=== PATIENT | female | born 1965 | race Hispanic/Latino ===

== ENCOUNTER 2018-06-27 16:28 | Emergency (ER) | payer BC, SELFPAY ==
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
--- OUTSIDE RECORDS SUMMARY | 2018-06-27 16:32 | XMS REPORT | Summary of Care ---
:1965 Author Organization [facility] Address [address], [place] [address]- Encounter HQ Encntr_alias(FIN) [id number] Date(s): 12/25/15 - 12/26/15 [facility] [address] [place] [address] Professional Services provided by [facility] [place] [address]- Discharge Disposition: Home or Self Care Attending Physician: Demetrius Faulkner MD Admitting Physician: Gonzalo sIaac MD Referring Physician: Gonzalo Isaac MD Vital Signs Most recent to oldest 1 2 3 [Reference Range]: Height 165.1 cm 157.48 cm (12/25/15 5:00 AM) (12/25/15 12:13 AM) Temperature Oral [96.4-99.1 97.1 DegF 97.5 DegF 97.3 DegF DegF] (12/26/15 3:39 PM) (12/26/15 11:37 AM) (12/26/15 7:35 AM) Blood Pressure [90-140/60-90 112/70 mmHg 104/69 mmHg 117/67 mmHg mmHg] (12/26/15 3:39 PM) (12/26/15 11:37 AM) (12/26/15 7:35 AM) Respiratory Rate [14-20 BRMIN] 18 BRMIN 18 BRMIN 18 BRMIN (12/26/15 3:39 PM) (12/26/15 11:37 AM) (12/26/15 7:35 AM) Peripheral Pulse Rate [60-100 65 bpm 61 bpm 59 bpm bpm] (12/26/15 3:39 PM) (12/26/15 11:37 AM) *LOW* (12/26/15 7:35 AM) Weight 86.1 kg 90.909 kg (12/25/15 5:00 AM) (12/25/15 12:13 AM) Body Mass Index 31.59 m2 36.66 m2 (12/25/15 5:00 AM) (12/25/15 12:13 AM) Problem List Condition Effective Dates Status Health Status Informant Anxiety(Confirmed) Resolved HTN (hypertension)(Confirmed) Resolved Allergies, Adverse Reactions, Alerts Substance Reaction Severity Status NKDA Active Medications acetaminophen-hydrocodone 325 mg-10 mg oral tablet 2 tab, Route: PO, Drug Form: TAB, Dosing Weight 90.909, kg, Q4H, PRN Pain Score 7-10, Start date: 12/25/15 2:57:00 CDT, Duration: 30 day, Stop date: 01/24/16 2: 56:00 CDT Notes: Do not exceed 4gm/day of acetaminophen. (Same as: [place] 325/10) Start Date: 12/25/15 Stop Date: 12/26/15 Status: DiscontinuedBenadryl 25 mg, 0.5 mL, Route: IVP, Drug form: INJ, ONCE, Dosing Weight 90.909, kg, Priority: STAT, Start date: 12/25/15 2:37:00 CDT, Stop date: 12/25/15 2:37:00 CDT Notes: (Same as: Addy) Start Date: 12/25/15 Stop Date: 12/25/15 Status: Orderedcalcium carbonate 500 mg (200 mg elemental calcium) oral tablet 1,000 mg, 2 tab, Route: PO, Drug form: CHEWTAB, PRN, Dosing Weight 90.909, kg, PRN Abnormal Lab Result, FOR ICU USE ONLY, Start date: 12/25/15 5:21:00 CDT, Duration: 30 day, Stop date: 01/24/16 5:20:00CDT Notes: (Same As: Violeta)Calcium Carbonate 500 nb=139 mg elemental calcium Dose=_ mg calcium carbonate ( mg elemental calcium) Start Date: 12/25/15 Stop Date: 12/26/15 Status: Discontinuedcalcium carbonate 500 mg (200 mg elemental calcium) oral tablet 500 mg, 1 tab, Route: PO, Drug form: CHEWTAB, PRN, Dosing Weight 90.909, kg, PRN Abnormal Lab Result, FOR ICU USE ONLY, Start date: 12/25/15 5:21:00 CDT, Duration: 30 day, Stop date: 01/24/16 5:20:00 CDT Notes: (Same As: Tums)Calcium Carbonate 500 pf=347 mg elemental calcium Dose=_ mg calcium carbonate ( mg elemental calcium) Start Date: 12/25/15 Stop Date: 12/26/15 Status: Discontinuedcalcium gluconate + sodium chloride 0.9% INJ 50 mL 1 gm, 10 mL, Route: IVPB, PRN, Dosing Weight 90.909, kg, PRN Abnormal Lab Result , Start date: 12/25/15 5:21:00 CDT, Duration: 30 day, Stop date: 01/24/16 5:20: 00 CDT, FOR ICU USE ONLY Notes: WASTE: F/P - Sink; E - Municipal Trash Bin Start Date: 12/25/15 Stop Date: 12/26/15 Status: Discontinuedcitalopram 20 mg oral tablet 20 mg=1 tab, PO, Daily, # 30 tab, 0 Refill(s) Start Date: 12/25/15 Status: OrderedCompazine 10 mg, 2 mL, Route: IV, Drug form: INJ, ONCE, Dosing Weight 90.909, kg, Start date: 12/25/15 2:36:00CDT, Stop date: 12/25/15 2:36:00 CDT Notes: (Same as: Compazine)By slow I.V. injection or infusion at a rate not to exceed 5 mg per minute. DO NOT BOLUSIf IV infusion Attach the vial to NS 50ml mini-bag plus, activate and reconstitute before infusion and infuse over 30 minutes Start Date: 12/25/15 Stop Date: 12/25/15 Status: DiscontinuedDextrose 50% Syringe 12.5 gm, 25 mL, Route: IVP, Drug Form: INJ, Dosing Weight 90.909, kg, PRN, PRN Abnormal Lab Result, Start date: 12/25/15 2:57:00 CDT, Duration: 30 day, Stop date: 01/24/16 2:56:00 CDT Start Date: 12/25/15 Stop Date: 12/26/15 Status: DiscontinuedDextrose 50% Syringe 6.25 gm, 12.5 mL, Route: IVP, Drug Form: INJ, Dosing Weight 90.909, kg, PRN, PRN Abnormal Lab Result, Start date: 12/25/15 2:57:00 CDT, Duration: 30 day, Stop date: 01/24/16 2:56:00 CDT Start Date: 12/25/15 Stop Date: 12/26/15 Status: DiscontinuedDextrose 50% Syringe 25 gm, 50 mL, Route: IVP, Drug Form: INJ, Dosing Weight 90.909, kg, PRN, PRN Abnormal Lab Result, Start date: 12/25/15 2:57:00 CDT, Duration: 30 day, Stop date: 01/24/16 2:56:00 CDT Start Date: 12/25/15 Stop Date: 12/26/15 Status: Discontinueddocusate 100 mg, 1 cap, Route: PO, Drug form: CAP, Q12H, Dosing Weight 90.909, kg, Start date: 12/25/15 9:00:00 CDT, Duration: 30 day, Stop date: 01/23/16 21:00:00 CDT Notes: (Same as: Colace) (Do Not Crush) Start Date: 12/25/15 Stop Date: 12/26/15 Status: Discontinuedinsulin regular 100 units/mL human recombinant 3 unit, 0.03 mL, Route: SUB-Q, Drug form: SOLN, PRN, Dosing Weight 90.909, kg, PRN Abnormal Lab Result, Start date: 12/25/15 2:57:00 CDT, Duration: 30 day, Stop date: 01/24/16 2:56:00 CDT Notes: (Same as: Humulin R) Roll in palms of hands gently; Do not shake vigorously. "single patientuse only"(Restricted to patients requiring a dose > 60 units)WASTE: F/P - Black; E - Municipal Trash Bin Stable for 28 days at room temperatureExpires in days from Date Start Date: 12/25/15 Stop Date: 12/26/15 Status: Discontinuedinsulin regular 100 units/mL human recombinant 5 unit, 0.05 mL, Route: SUB-Q, Drug form: SOLN, PRN, Dosing Weight 90.909, kg, PRN Abnormal Lab Result, Start date: 12/25/15 2:57:00 CDT, Duration: 30 day, Stop date: 01/24/16 2:56:00 CDT Notes: (Same as: Humulin R) Roll in palms of hands gently; Do not shake vigorously. "single patientuse only"(Restricted to patients requiring a dose > 60 units)WASTE: F/P - Black; E - Municipal Trash Bin Stable for 28 days at room temperatureExpires in days from Date Start Date: 12/25/15 Stop Date: 12/26/15 Status: Discontinuedinsulin regular 100 units/mL human recombinant 7 unit, 0.07 mL, Route: SUB-Q, Drug form: SOLN, PRN, Dosing Weight 90.909, kg, PRN Abnormal Lab Result, Start date: 12/25/15 2:57:00 CDT, Duration: 30 day, Stop date: 01/24/16 2:56:00 CDT Notes: (Same as: Humulin R) Roll in palms of hands gently; Do not shake vigorously. "single patientuse only"(Restricted to patients requiring a dose > 60 units)WASTE: F/P - Black; E - Municipal Trash Bin Stable for 28 days at room temperatureExpires in days from Date Start Date: 12/25/15 Stop Date: 12/26/15 Status: DiscontinuedKeppra 1,000 mg, Route: IV, ONCE, Dosing Weight 90.909, kg, Start date: 12/25/15 1:55: 00 CDT, Stop date: 12/25/15 1:55:00 CDT Start Date: 12/25/15 Stop Date: 12/25/15 Status: CompletedKeppra 1,000 mL, Route: IV, ONCE, Dosing Weight 90.909, kg, Start date: 12/25/15 0:27: 00 CDT, Stop date: 12/25/15 0:27:00 CDT Start Date: 12/25/15 Stop Date: 12/25/15 Status: DiscontinuedlevETIRAcetam 500 mg, 1 tab, Route: PO, Drug form: TAB, Q12H, Dosing Weight 90.909, kg, Start date: 12/25/15 14:00:00 CDT, Duration: 30 day, Stop date: 01/24/16 2:00:00 CDT Notes: (Same as:Jeanie) Start Date: 12/25/15 Stop Date: 12/26/15 Status: DiscontinuedlevETIRAcetam 500 mg oral tablet 500 mg=1 tab, PO, Q12H, 0 Refill(s) Start Date: 12/26/15 Stop Date: 12/26/15 Status: DeletedlevETIRAcetam 500 mg oral tablet 500 mg=1 tab, PO, Q12H, # 14 tab, 0 Refill(s) Start Date: 12/26/15 Status: Orderedlisinopril 20 mg oral tablet See Instructions, One tab twice daily, 0 Refill(s) Start Date: 12/25/15 Status: Orderedmagnesium oxide 800 mg, 2 tab, Route: PO, Drug form: TAB, PRN, Dosing Weight 90.909, kg, PRN Abnormal Lab Result, FOR ICU USE ONLY, Start date: 12/25/15 5:21:00 CDT, Duration: 30 day, Stop date: 01/24/16 5:20:00 CDT Notes: (Same as: Mag-Ox 400)Magnesium oxide [id number] elemental magnesiumDose= ____mg magnesium oxide (___mg elemental magnesium) Start Date: 12/25/15 Stop Date: 12/26/15 Status: Discontinuedmagnesium sulfate 2 gm, 50 mL, Route: IVPB, Drug form: INJ, PRN, Dosing Weight 90.909, kg, PRN Abnormal Lab Result, Start date: 12/25/15 5:21:00 CDT, Duration: 30 day, Stop date: 01/24/16 5:20:00 CDT, FOR ICU USE ONLY Notes: WASTE: F/P - Sink; E - Municipal Trash Bin Start Date: 12/25/15 Stop Date: 12/26/15 Status: Discontinuedmorphine Sulfate 1 mg, 0.5 mL, Route: IVP, Drug form: INJ, Q1H, Dosing Weight 90.909, kg, PRN Pain Score 7-10, Start date: 12/25/15 2:57:00 CDT, Duration: 30 day, Stop date: 01/24/16 2:56:00 CDT Notes: (Same as:MORPhine Sulfate) Start Date: 12/25/15 Stop Date: 12/26/15 Status: DiscontinuedNeutra-Phos 2 pkt, Route: PO, Drug Form: PDR/REC, Dosing Weight 90.909, kg, PRN, PRN Abnormal Lab Result, FOR ICU USE ONLY, Start date: 12/25/15 5:21:00 CDT, Duration: 30 day, Stop date: 01/24/16 5:20:00 CDT Notes: (Same as: Neutra-Phos) Each 1.25 gm pkt has 250mg phosphorous. Mix w/ 2.5oz water and stir. Start Date: 12/25/15 Stop Date: 12/26/15 Status: Discontinuedondansetron 4 mg, 2 mL, Route: IVP, Drug form: INJ, Q8H, Dosing Weight 90.909, kg, PRN Nausea & Vomiting, Start date: 12/25/15 2:57:00 CDT, Duration: 30 day, Stop date: 01/24/16 2:56:00 CDT Notes: (Same as: Zofran) MEDICATION WASTE Product Size: 4 mgProduct Wasted: ___ mg Start Date: 12/25/15 Stop Date: 12/26/15 Status: Discontinuedpotassium chloride 20 mEq, 15 mL, Route: NJ, Drug form: LIQ, PRN, Dosing Weight 90.909, kg, PRN Abnormal Lab Result, Start date: 12/25/15 5:21:00 CDT, Duration: 30 day, Stop date: 01/24/16 5:20:00 CDT, FOR ICU USE ONLY Notes: (Same as: Potassium Chloride) Start Date: 12/25/15 Stop Date: 12/26/15 Status: Discontinuedpotassium chloride 20 mEq, 1 tab, Route: PO, Drug form: ERTAB, PRN, Dosing Weight 90.909, kg, PRN Abnormal Lab Result, Start date: 12/25/15 5:21:00 CDT, Duration: 30 day, Stop date: 01/24/16 5:20:00 CDT, FOR ICU USE ONLY Notes: (Same as: K-Dur 20)"Do Not Crush" With food and full glass of water Start Date: 12/25/15 Stop Date: 12/26/15 Status: Discontinuedpotassium chloride 10 mEq, 50 mL, Route: IVPB, Drug form: INJ, PRN, Dosing Weight 90.909, kg, PRN Abnormal Lab Result, Via peripheral line, Start date: 12/25/15 5:21:00 CDT, Duration: 30 day, Stop date: 01/24/16 5:20:00 CDT, FOR ICU USE ONLY Notes: (Same as: KCL) Infuse over 2 hours. Start Date: 12/25/15 Stop Date: 12/26/15 Status: Discontinuedpotassium chloride 20 mEq, 100 mL, Route: IVPB, Drug form: INJ, PRN, Dosing Weight 90.909, kg, PRN Abnormal Lab Result,Via central line, Start date: 12/25/15 5:21:00 CDT, Duration : 30 day, Stop date: 01/24/16 5:20:00 CDT, FOR ICU USE ONLY Notes: (Same as: KCL) Infuse no faster than 10 mEq/hr if given peripherally. Start Date: 12/25/15 Stop Date: 12/26/15 Status: Discontinuedpotassium phosphate + sodium chloride 0.9% INJ 250 mL 15 mmol, 5 mL, Route: IVPB, PRN, Dosing Weight 90.909, kg, PRN Abnormal Lab Result, Start date: 12/25/15 5:21:00 CDT, Duration: 30 day, Stop date: 01/24/16 5:20:00 CDT, FOR ICU USE ONLY Notes: (Same as: K Phosphate.) 1 mMol phoshate has 1.47 mEq potassium Infuse over 4 hours Start Date: 12/25/15 Stop Date: 12/26/15 Status: Discontinuedpotassium phosphate + sodium chloride 0.9% INJ 250 mL 45 mmol, 15 mL, Route: IVPB, PRN, Dosing Weight 90.909, kg, PRN Abnormal Lab Result, Start date: 12/25/15 5:21:00 CDT, Duration: 30 day, Stop date: 01/24/16 5:20:00 CDT, FOR ICU USE ONLY Notes: (Same as: K Phosphate.) 1 mMol phoshate has 1.47 mEq potassium Infuse over 4 hours Start Date: 12/25/15 Stop Date: 12/26/15 Status: Discontinuedpotassium phosphate + sodium chloride 0.9% INJ 250 mL 30 mmol, 10 mL, Route: IVPB, PRN, Dosing Weight 90.909, kg, PRN Abnormal Lab Result, Start date: 12/25/15 5:21:00 CDT, Duration: 30 day, Stop date: 01/24/16 5:20:00 CDT, FOR ICU USE ONLY Notes: (Same as: K Phosphate.) 1 mMol phoshate has 1.47 mEq potassium Infuse over 4 hours Start Date: 12/25/15 Stop Date: 12/26/15 Status: DiscontinuedSaline Flush 0.9% 10 ml, Route: MISC, Drug Form: INJ, Dosing Weight 90.909, kg, PRN, PRN Line Flush, Start date: 12/25/15 2:57:00 CDT, Duration: 30 day, Stop date: 01/24/16 2 :56:00 CDT Notes: (Same as: BD Posiflush) Start Date: 12/25/15 Stop Date: 12/26/15 Status: DiscontinuedSaline Flush 0.9% 10 ml, Route: MISC, Drug Form: INJ, Dosing Weight 90.909, kg, Q12H, Start date: 12/25/15 9:00:00 CDT, Duration: 30 day, Stop date: 01/23/16 21:00:00 CDT Notes: (Same as: BD Posiflush) Start Date: 12/25/15 Stop Date: 12/26/15 Status: Discontinuedsenna 8.6 mg, 1 tab, Route: PO, Drug Form: TAB, Dosing Weight 90.909, kg, Q12H, Start date: 12/25/15 9:00:00 CDT, Duration: 30 day, Stop date: 01/23/16 21:00:00 CDT Notes: (Same as: Senokot) Start Date: 12/25/15 Stop Date: 12/26/15 Status: Discontinuedsodium chloride 0.9% 1000 ml INJ 1,000 mL 1,000 mL, Rate: 100 ml/hr, Infuse over: 10 hr, Route: IVPB, Dosing Weight 90.909 kg, Total Volume: 1,000, Start date: 12/25/15 2:57:00 CDT, Duration: 30 day, Stop date: 01/24/16 2:56:00 CDT Start Date: 12/25/15 Stop Date: 12/26/15 Status: Discontinuedsodium phosphate + sodium chloride 0.9% INJ 250 mL 30 mmol, 10 mL, Route: IVPB, PRN, Dosing Weight 90.909, kg, PRN Abnormal Lab Result, Start date: 12/25/15 5:21:00 CDT, Duration: 30 day, Stop date: 01/24/16 5:20:00 CDT, FOR ICU USE ONLY Start Date: 12/25/15 Stop Date: 12/26/15 Status: Discontinuedsodium phosphate + sodium chloride 0.9% INJ 250 mL 15 mmol, 5 mL, Route: IVPB, PRN, Dosing Weight 90.909, kg, PRN Abnormal Lab Result, Start date: 12/25/15 5:21:00 CDT, Duration: 30 day, Stop date: 01/24/16 5:20:00 CDT, FOR ICU USE ONLY Start Date: 12/25/15 Stop Date: 12/26/15 Status: Discontinuedsodium phosphate + sodium chloride 0.9% INJ 250 mL 45 mmol, 15 mL, Route: IVPB, PRN, Dosing Weight 90.909, kg, PRN Abnormal Lab Result, Start date: 12/25/15 5:21:00 CDT, Duration: 30 day, Stop date: 01/24/16 5:20:00 CDT, FOR ICU USE ONLY Start Date: 12/25/15 Stop Date: 12/26/15 Status: DiscontinuedTylenol 975 mg, 3 tab, Route: PO, Drug form: TAB, ONCE, Dosing Weight 90.909, kg, Priority: STAT, Start date: 12/25/15 2:36:00 CDT, Stop date: 12/25/15 2:36:00 CDT Notes: Do not exceed 4 gm/day. (Same as: Tylenol) Start Date: 12/25/15 Stop Date: 12/25/15 Status: CompletedTylenol with Codeine #3 oral tablet 1 - 2 tab, PO, Q6H, PRN Pain, X 4 day, # 32 tab, 0 Refill(s) Start Date: 12/26/15 Stop Date: 12/30/15 Status: Ordered Results BLOOD BANK RESULTS Most recent to oldest [Reference Range]: 1 2 3 ABO/Rh O POS *Unknown* (12/25/15 1:38 AM) Antibody Scrn Negative (12/25/15 1:38 AM) ELECTROLYTES Most recent to oldest 1 2 3 [Reference Range]: Sodium Lvl [135-145 mEq/L] 140 mEq/L 137 mEq/L 139 mEq/L (12/26/15 4:13 AM) (12/25/15 5:45 AM) (12/25/15 1:38 AM) Potassium Lvl [3.5-5.1 3.8 mEq/L 4.1 mEq/L 4.1 mEq/L mEq/L] (12/26/15 4:13 AM) (12/25/15 5:45 AM) (12/25/15 1:38 AM) Chloride Lvl [95-109 mEq/L] 107 mEq/L 103 mEq/L 102 mEq/L (12/26/15 4:13 AM) (12/25/15 5:45 AM) (12/25/15 1:38 AM) CO2 [24-32 mEq/L] 28 mEq/L 27 mEq/L 27 mEq/L (12/26/15 4:13 AM) (12/25/15 5:45 AM) (12/25/15 1:38 AM) AGAP [10.0-20.0 mEq/L] 8.8 mEq/L 11.1 mEq/L 14.1 mEq/L *LOW* (12/25/15 5:45 AM) (12/25/15 1:38 AM) (12/26/15 4:13 AM) CHEM PANEL Most recent to oldest 1 2 3 [Reference Range]: Creatinine Lvl [0.50-1.40 0.62 mg/dL 0.61 mg/dL 0.69 mg/dL mg/dL] (12/26/15 4:13 AM) (12/25/15 5:45 AM) (12/25/15 1:38 AM) eGFR 104 mL/min/1.73m2 1 105 mL/min/1.73m2 2 101 mL/min/1.73m2 3 *NA* *NA* *NA* (12/26/15 4:13 AM) (12/25/15 5:45 AM) (12/25/15 1:38 AM) BUN [7-22 mg/dL] 13 mg/dL 12 mg/dL 14 mg/dL (12/26/15 4:13 AM) (12/25/15 5:45 AM) (12/25/15 1:38 AM) Glucose Lvl [70-99 mg/dL] 130 mg/dL 140 mg/dL 167 mg/dL *HI* *HI* *HI* (12/26/15 4:13 AM) (12/25/15 5:45 AM) (12/25/15 1:38 AM) Total Protein [6.4-8.4 6.9 g/dL g/dL] (12/25/15 5:45 AM) Albumin Lvl [3.5-5.0 g/dL] 3.1 g/dL *LOW* (12/25/15 5:45 AM) Globulin [2.7-4.2 g/dL] 3.8 g/dL (12/25/15 5:45 AM) A/G Ratio [0.7-1.6] 0.8 (12/25/15 5:45 AM) Calcium Lvl [8.5-10.5 8.6 mg/dL 8.4 mg/dL 8.7 mg/dL mg/dL] (12/26/15 4:13 AM) *LOW* (12/25/15 1:38 AM) (12/25/15 5:45 AM) Phosphorus [2.5-4.5 mg/dL] 2.5 mg/dL 3.4 mg/dL (12/26/15 4:13 AM) (12/25/15 5:45 AM) Magnesium Lvl [1.8-2.4 2.1 mg/dL 2.0 mg/dL mg/dL] (12/26/15 4:13 AM) (12/25/15 5:45 AM) ALT [0-65 unit/L] 30 unit/L (12/25/15 5:45 AM) AST [0-37 unit/L] 29 unit/L (12/25/15 5:45 AM) Alk Phos [39-136 unit/L] 92 unit/L (12/25/15 5:45 AM) Bili Total [0.2-1.3 mg/dL] 0.6 mg/dL (12/25/15 5:45 AM) Bili Direct [0.0-0.3 mg/dL] 0.1 mg/dL (12/25/15 5:45 AM) Bili Indirect [0.0-1.0 0.5 mg/dL mg/dL] (12/25/15 5:45 AM) 1Result Comment: The eGFR is calculated using the CKD-EPI formula. In most young , healthy individualsthe eGFR will be >90 mL/min/1.73m2. The eGFR declines with age. An eGFR of 60-89 may be normal in some populations, particularly the elderly, for whom the CKD-EPI formula has not been extensively validated. Use of the eGFR is not recommended in the following populations: Individuals with unstable creatinine concentrations, including patients and those with serious co-morbid conditions. Patients with extremes in muscle mass or diet. The data above are obtained from the National Kidney Disease Education Program ( NKDEP) which additionally recommends that when the eGFR is used in patients with extremes of body mass index for purposesof drug dosing, the eGFR should be multiplied by the estimated BMI.2Result Comment: The eGFR is calculated using the CKD-EPI formula. In most young, healthy individualsthe eGFR will be >90 mL/ min/1.73m2. The eGFR declines with age. An eGFR of 60-89 may be normal in some populations, particularly the elderly, for whom the CKD-EPI formula has not been extensively validated. Use of the eGFR is not recommended in the following populations: Individuals with unstable creatinine concentrations, including patients and those with serious co-morbid conditions. Patients with extremes in muscle mass or diet. The data above are obtained from the National Kidney Disease Education Program ( NKDEP) which additionally recommends that when the eGFR is used in patients with extremes of body mass index for purposesof drug dosing, the eGFR should be multiplied by the estimated BMI.3Result Comment: The eGFR is calculated using the CKD-EPI formula. In most young, healthy individualsthe eGFR will be >90 mL/ min/1.73m2. The eGFR declines with age. An eGFR of 60-89 may be normal in some populations, particularly the elderly, for whom the CKD-EPI formula has not been extensively validated. Use of the eGFR is not recommended in the following populations: Individuals with unstable creatinine concentrations, including patients and those with serious co-morbid conditions. Patients with extremes in muscle mass or diet. The data above are obtained from the National Kidney Disease Education Program ( NKDEP) which additionally recommends that when the eGFR is used in patients with extremes of body mass index for purposesof drug dosing, the eGFR should be multiplied by the estimated BMI.CARDIAC ENZYMES Most recent to oldest [Reference Range]: 1 2 3 Total CK [12-191 unit/L] 79 unit/L 80 unit/L (12/25/15 12:52 PM) (12/25/15 5:45 AM) CK MB [0.5-3.6 ng/mL] 1.3 ng/mL 1.7 ng/mL (12/25/15 12:52 PM) (12/25/15 5:45 AM) CK MB Index [0.0-2.5] 1.6 2.1 (12/25/15 12:52 PM) (12/25/15 5:45 AM) Troponin-T [0.000-0.100 ng/mL] <0.010 ng/mL (12/25/15 5:45 AM) Troponin-I [0.00-0.40 ng/mL] <0.02 ng/mL <0.02 ng/mL (12/25/15 12:52 PM) (12/25/15 5:45 AM) PARATHYROID PROFILE Most recent to oldest [Reference Range]: 1 2 3 Ca Ion WB [1.05-1.25 mMol/L] 1.13 mMol/L (12/25/15 5:45 AM) Ca Norm WB [1.05-1.25 mMol/L] 1.09 mMol/L (12/25/15 5:45 AM) HEMATOLOGY Most recent to oldest 1 2 3 [Reference Range]: WBC [3.7-10.4 K/CMM] 8.4 K/CMM 9.8 K/CMM 11.3 K/CMM (12/26/15 4:13 AM) (12/25/15 5:45 AM) *HI* (12/25/15 1:38 AM) RBC [4.20-5.40 M/CMM] 4.49 M/CMM 4.66 M/CMM 4.86 M/CMM (12/26/15 4:13 AM) (12/25/15 5:45 AM) (12/25/15 1:38 AM) Hgb [12.0-16.0 g/dL] 13.4 g/dL 13.9 g/dL 14.3 g/dL (12/26/15 4:13 AM) (12/25/15 5:45 AM) (12/25/15 1:38 AM) Hct [36.0-48.0 %] 38.9 % 40.0 % 41.6 % (12/26/15 4:13 AM) (12/25/15 5:45 AM) (12/25/15 1:38 AM) MCV [80.0-98.0 fL] 86.6 fL 85.9 fL 85.7 fL (12/26/15 4:13 AM) (12/25/15 5:45 AM) (12/25/15 1:38 AM) MCH [27.0-31.0 pg] 29.7 pg 29.8 pg 29.4 pg (12/26/15 4:13 AM) (12/25/15 5:45 AM) (12/25/15 1:38 AM) MCHC [32.0-36.0 g/dL] 34.3 g/dL 34.7 g/dL 34.3 g/dL (12/26/15 4:13 AM) (12/25/15 5:45 AM) (12/25/15 1:38 AM) RDW [11.5-14.5 %] 12.4 % 12.7 % 12.7 % (12/26/15 4:13 AM) (12/25/15 5:45 AM) (12/25/15 1:38 AM) Platelet [133-450 K/CMM] 157 K/CMM 166 K/CMM 186 K/CMM (12/26/15 4:13 AM) (12/25/15 5:45 AM) (12/25/15 1:38 AM) MPV [7.4-10.4 fL] 9.2 fL 9.1 fL 8.8 fL (12/26/15 4:13 AM) (12/25/15 5:45 AM) (12/25/15 1:38 AM) Segs [45.0-75.0 %] 60.0 % 64.4 % 73.0 % (12/26/15 4:13 AM) (12/25/15 5:45 AM) (12/25/15 1:38 AM) Lymphocytes [20.0-40.0 %] 30.9 % 26.6 % 19.1 % (12/26/15 4:13 AM) (12/25/15 5:45 AM) *LOW* (12/25/15 1:38 AM) Monocytes [2.0-12.0 %] 7.9 % 8.1 % 6.9 % (12/26/15 4:13 AM) (12/25/15 5:45 AM) (12/25/15 1:38 AM) Eosinophils [0.0-4.0 %] 0.7 % 0.4 % 0.3 % (12/26/15 4:13 AM) (12/25/15 5:45 AM) (12/25/15 1:38 AM) Basophils [0.0-1.0 %] 0.5 % 0.5 % 0.7 % (12/26/15 4:13 AM) (12/25/15 5:45 AM) (12/25/15 1:38 AM) Segs-Bands # [1.5-8.1 K/CMM] 5.1 K/CMM 6.3 K/CMM 8.2 K/CMM (12/26/15 4:13 AM) (12/25/15 5:45 AM) *HI* (12/25/15 1:38 AM) Lymphocytes # [1.0-5.5 2.6 K/CMM 2.6 K/CMM 2.2 K/CMM K/CMM] (12/26/15 4:13 AM) (12/25/15 5:45 AM) (12/25/15 1:38 AM) Monocytes # [0.0-0.8 K/CMM] 0.7 K/CMM 0.8 K/CMM 0.8 K/CMM (12/26/15 4:13 AM) (12/25/15 5:45 AM) (12/25/15 1:38 AM) Eosinophils # [0.0-0.5 0.1 K/CMM K/CMM] (12/26/15 4:13 AM) Basophils # [0.0-0.2 K/CMM] 0.1 K/CMM (12/25/15 1:38 AM) PT [12.0-14.7 seconds] 12.9 seconds (12/25/15 1:38 AM) INR [0.85-1.17] 0.94 (12/25/15 1:38 AM) PTT [22.9-35.8 seconds] 29.8 seconds (12/25/15 1:38 AM) ACT (TEG) Rapid [86-118 97 seconds seconds] (12/25/15 1:38 AM) Split Point Rapid 0.4 minutes *NA* (12/25/15 1:38 AM) R-time Rapid [0.4-0.7 0.5 minutes minutes] (12/25/15 1:38 AM) K-time Rapid [0.6-2.3 1.5 minutes minutes] (12/25/15 1:38 AM) Angle Rapid [64-80 degrees] 74 degrees (12/25/15 1:38 AM) Max Amplitude Rapid [52-71 62 mm mm] (12/25/15 1:38 AM) G-value Rapid [5.0-11.6 K 8.2 K d/sc d/sc] (12/25/15 1:38 AM) Estimated % Lysis Rapid 0.1 % [0.0-7.5 %] (12/25/15 1:38 AM) BACTERIAL - SEROLOGY Most recent to oldest [Reference Range]: 1 2 3 MRSA by PCR Negative (12/25/15 5:45 AM) Immunizations No data available for this section Procedures No data available for this section Social History Social History Type Response Smoking Status Never smoker; Exposure to Tobacco Smoke None; Cigarette Smoking Last 365 Days No; Reg Smoking Cessation Counseling No Assessment and Plan Extracted from: Title: NeuroTrauma Appointment Author: Brii Jeong Date: 12/26/15 Arranged for patient to follow up with [facility] [phone] on January 10, 2016 at 11:45am. Will remain available to assist as needed. Brii Jeong LMSW [facility] [id number] [employer]
--- OUTSIDE RECORDS SUMMARY | 2018-06-27 16:32 | XMS REPORT | Summary of Care ---
:1965 Author Organization [facility] Outpatient Imaging [place] Address [facility] [place], [place] [address]- Encounter HQ Encntr_alias(FIN) [id number] Date(s): 01/10/16 - 01/10/16 [facility] Outpatient Imaging [address], [facility] [address] [place] [phone] Discharge Disposition: Home or Self Care Attending Physician: Darryl To MD Vital Signs No data available for this section Problem List Condition Effective Dates Status Health Status Informant Anxiety(Confirmed) Resolved HTN (hypertension)(Confirmed) Resolved Obesity(Confirmed) Active Allergies, Adverse Reactions, Alerts Substance Reaction Severity Status NKDA Active Medications No data available for this section Results No data available for this section Immunizations No data available for this section Procedures No data available for this section Social History Social History Type Response Smoking Status Never smoker; Exposure to Tobacco Smoke None; Cigarette Smoking Last 365 Days No; Reg Smoking Cessation Counseling No Assessment and Plan No data available for this section
[2018-06-27] MEDS ORDERED: HYDROCODONE/APAP 5/325 MG TAB ONE (17:21)
--- NOTE | 2018-06-27 17:37 | RAD REPORT ---
EXAM DESCRIPTION: RAD - Knee Left 3 View - 06/27/2018 5:22 pm CLINICAL HISTORY: Left knee pain FINDINGS: No fracture or dislocation is seen. Calcification along the medial joint line probably secondary to prior trauma.
--- NOTE | 2018-06-27 17:56 | ER ---
Nurse's Notes [facility] Name: Yennifer Beasley Age: 52 yrs Sex: Female : 1965 Arrival Date: 06/27/2018 Time: 16:30 Bed 30 Private MD: Diagnosis: Pain in left knee Presentation: 06/27 16:35 Presenting complaint: Patient states: Left leg pain for several days now, denies injury sg or trauma at this. Transition of care: patient was not received from another setting of care. Onset of symptoms was June 27, 2018. Risk Assessment: Do you want to hurt yourself or someone else? Patient reports no desire to harm self or others. Initial Sepsis Screen: Does the patient meet any 2 criteria? No. Patient's initial sepsis screen is negative. Does the patient have a suspected source of infection? No. Patient's initial sepsis screen is negative. Care prior to arrival: None. 16:35 Method Of Arrival: Ambulatory sg 16:35 Acuity: LALITA 4 sg BOARD OF DIRECTORS: 16:35 LMP N/A - Irregular menses sg Historical: - Allergies: 17:12 No Known Allergies; la1 - PMHx: 17:12 Anxiety; Hypertension; la1 - Immunization history:: Adult Immunizations up to date. - Social history:: Smoking status: Patient/guardian denies using tobacco. - Ebola Screening: : No symptoms or risks identified at this time. Screenin:13 Abuse screen: Denies threats or abuse. Nutritional screening: No deficits noted. la1 Tuberculosis screening: No symptoms or risk factors identified. Fall Risk None identified. Assessment: 17:12 General: Appears in no apparent distress. Behavior is calm, cooperative. Pain: la1 Complains of pain in left knee. Neuro: Level of Consciousness is awake, alert, obeys commands, Oriented to person, place, time, situation. Cardiovascular: Heart tones S1 S2 present Capillary refill < 3 seconds Patient's skin is warm and dry. Respiratory: Airway is patent Respiratory effort is even, unlabored, Respiratory pattern is regular, symmetrical. GI: No signs and/or symptoms were reported involving the gastrointestinal system. : No signs and/or symptoms were reported regarding the genitourinary system. Musculoskeletal: Circulation, motion, and sensation intact. Capillary refill < 3 seconds, is brisk, in bilateral toes. Vital Signs: 16:35 BP 162 / 92; Pulse 92; Resp 18; Temp 98.6; Pulse Ox 100% ; Weight 73.48 kg; Height 5 sg ft. 3 in. (160.02 cm); Pain 6/10; 16:35 Body Mass Index 28.70 (73.48 kg, 160.02 cm) ED Course: 16:30 Patient arrived in ED. as 16:36 Triage completed. sg 17:01 Tomás Anand NP is PHCP. pm1 17:01 Flakito Snow MD is Attending Physician. pm1 17:07 George Green, ANNE is Primary Nurse. la1 17:08 Arm band placed on left wrist. la1 17:13 Call light in reach. la1 17:13 No provider procedures requiring assistance completed. Patient did not have IV access la1 during this emergency room visit. 17:18 Knee Left 3 View XRAY In Process Unspecified. EDMS Administered Medications: 17:12 Drug: [place] 5 mg-325 mg 1 tabs Route: PO; la1 Outcome: 17:56 Discharge ordered by . pm1 18:13 Discharged to home via wheelchair. la1 18:13 Condition: stable 18:13 Discharge instructions given to patient, Instructed on discharge instructions, follow up and referral plans. medication usage, Demonstrated understanding of instructions, follow-up care, medications, Prescriptions given X 1. 18:13 Patient left the ED. la1 Signatures: Dispatcher [employer] EDMS Henrry Morejon RN RN Nayla Quijano as George Green RN RN la1 Tomás Anand NP HEAD OF STORE OPERATIONS pm1
--- NOTE | 2018-06-27 17:56 | EDPHYS ---
Physician Documentation [facility] Name: Yennifer Beasley Age: 52 yrs Sex: Female : 1965 Arrival Date: 06/27/2018 Time: 16:30 Bed 30 Private MD: ED Physician Flakito Snow HPI: 06/27 17:52 This 52 yrs old Female presents to ER via Ambulatory with complaints of Left pm1 knee pain. 17:52 The patient presents with pain. The complaints affect the left knee. Context: The pm1 problem was sustained at home, resulted from an unknown cause, the patient can fully bear weight, the patient is able to ambulate, with mild difficulty, uses a brace, Problem is a result from a previous injury: No. Onset: The symptoms/episode began/occurred 2 week(s) ago. Modifying factors: The symptoms are alleviated by remaining still, the symptoms are aggravated by movement, weight bearing, bending knee. Associated signs and symptoms: Pertinent negatives calf tenderness, fever, numbness, rash, swelling, tingling, vomiting. Treatment prior to arrival includes: tiny wrap, over the counter medications. Severity of symptoms: in the emergency department the symptoms are unchanged. The patient has not experienced similar symptoms in the past. The patient has not recently seen a physician. 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 - Social history:: Smoking status: Patient/guardian denies using tobacco. - Ebola Screening: : No symptoms or risks identified at this time. ROS: 17:52 Constitutional: Negative for fever, chills, and weight loss, Eyes: Negative for injury, pm1 pain, redness, and discharge, ENT: Negative for injury, pain, and discharge, Neck: Negative for injury, pain, and swelling, Cardiovascular: Negative for chest pain, palpitations, and edema, Respiratory: Negative for shortness of breath, cough, wheezing, and pleuritic chest pain, Abdomen/GI: Negative for abdominal pain, nausea, vomiting, diarrhea, and constipation, Back: Negative for injury and pain, : Negative for injury, bleeding, discharge, and swelling. 17:52 Skin: Negative for injury, rash, and discoloration, Neuro: Negative for headache, weakness, numbness, tingling, and seizure. 17:52 MS/extremity: Positive for pain, of the left knee, Negative for decreased range of motion, deformity. Exam: 17:52 Constitutional: This is a well developed, well nourished patient who is awake, alert, pm1 and in no acute distress. Head/Face: Normocephalic, atraumatic. Eyes: Pupils equal round and reactive to light, extra-ocular motions intact. Lids and lashes normal. Conjunctiva and sclera are non-icteric and not injected. Cornea within normal limits. Periorbital areas with no swelling, redness, or edema. ENT: Nares patent. No nasal discharge, no septal abnormalities noted. Tympanic membranes are normal and external auditory canals are clear. Oropharynx with no redness, swelling, or masses, exudates, or evidence of obstruction, uvula midline. Mucous membranes moist. Neck: Trachea midline, no thyromegaly or masses palpated, and no cervical lymphadenopathy. Supple, full range of motion without nuchal rigidity, or vertebral point tenderness. No Meningismus. Chest/axilla: Normal chest wall appearance and motion. Nontender with no deformity. No lesions are appreciated. Cardiovascular: Regular rate and rhythm with a normal S1 and S2. No gallops, murmurs, or rubs. Normal PMI, no JVD. No pulse deficits. Respiratory: Lungs have equal breath sounds bilaterally, clear to auscultation and percussion. No rales, rhonchi or wheezes noted. No increased work of breathing, no retractions or nasal flaring. Abdomen/GI: Soft, non-tender, with normal bowel sounds. No distension or tympany. No guarding or rebound. No evidence of tenderness throughout. Back: No spinal tenderness. No costovertebral tenderness. Full range of motion. Skin: Warm, dry with normal turgor. Normal color with no rashes, no lesions, and no evidence of cellulitis. 17:52 Musculoskeletal/extremity: Extremities: all appear grossly normal, with no appreciated pain with palpation, noted in the left knee: tenderness, There is no evidence of decreased ROM, deformity, ecchymosis, swelling, ROM: intact in all extremities, Circulation is intact in all extremities. DVT Exam: No signs of deep vein thrombosis. no pain, no swelling, no tenderness, negative Homans' sign noted on exam, no appreciated bluish discoloration, no erythema, no increased warmth. 17:52 Neuro: Orientation: is normal, Motor: is normal, moves all fours. Vital Signs: 16:35 BP 162 / 92; Pulse 92; Resp 18; Temp 98.6; Pulse Ox 100% ; Weight 73.48 kg; Height 5 sg ft. 3 in. (160.02 cm); Pain 6/10; 16:35 Body Mass Index 28.70 (73.48 kg, 160.02 cm) sg MDM: 17:02 Patient medically screened. pm1 17:55 Data reviewed: vital signs. Data interpreted: Pulse oximetry: on room air is 100 %. pm1 Interpretation: normal. Counseling: I had a detailed discussion with the patient and/or guardian regarding: the historical points, exam findings, and any diagnostic results supporting the discharge/admit diagnosis, radiology results, the need for outpatient follow up, to return to the emergency department if symptoms worsen or persist or if there are any questions or concerns that arise at home. 17:55 ED course: Patient offered crutches and tiny wrap. Patient refused, wants to use her pm1 knee wrap instead. 06/27 17:07 Order name: Knee Left 3 View XRAY; Complete Time: 17:51 pm1 Administered Medications: 17:12 Drug: [place] 5 mg-325 mg 1 tabs Route: PO; la1 Disposition: 18:14 Co-signature as Attending Physician, Flakito Snow MD. rn Disposition: 06/27/18 17:56 Discharged to Home. Impression: Pain in left knee. - Condition is Stable. - Discharge Instructions: Elastic Bandage and RICE, Crutch Use, Knee Pain. - Prescriptions for Tylenol- Codeine #3 300-30 mg Oral Tablet - take 2 tablets by ORAL route every 6 hours As needed; 20 tablet. - Work release form, Medication Reconciliation Form, Thank You Letter, Antibiotic Education, Prescription Opioid Use form. - Follow up: Emergency Department; When: As needed; Reason: Worsening of condition. Follow up: Private Physician; When: 2 - 3 days; Reason: Recheck today's complaints, Continuance of care, Re-evaluation by your physician. - Problem is new. - Symptoms have improved. Signatures: Dispatcher [employer] EDMS Flakito Snow MD MD rn George Green RN RN la1 Tomás Anand, APPLICATION PENETRATION TESTER APPLICATION PENETRATION TESTER pm1 Corrections: (The following items were deleted from the chart) 18:13 17:56 06/27/2018 17:56 Discharged to Home. Impression: Pain in left knee. Condition is la1 Stable. Forms are Medication Reconciliation Form, Thank You Letter, Antibiotic Education, Prescription Opioid Use. Follow up: Emergency Department; When: As needed; Reason: Worsening of condition. Follow up: Private Physician; When: 2 - 3 days; Reason: Recheck today's complaints, Continuance of care, Re-evaluation by your physician. Problem is new. Symptoms have improved. pm1
[2018-06-27 18:29] VITALS: BP 162/92; TEMP 98.6; O2SAT 100
== END 2018-06-27 18:13 | disposition home or self-care (01) ==
LOC: ER 16:28
DX: M25.562 Pain in left knee (principal); I10 Essential (primary) hypertension
CPT/HCPCS: 99283

== ENCOUNTER 2020-04-13 22:15 | Emergency (ER) | payer SELFPAY ==
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
[2020-04-13 23:27] LABS: Urine Blood 2+ (NEG); Urine Glucose 2+ (NEG); Urine Protein 3+ (NEG); Urine pH 5.5 (5.0-7.0)
[2020-04-13 23:51] LABS: Urine Bacteria >50 /HPF (<20); Urine Mucus 2+ /HPF (NONE SEEN); Urine RBC TNTC /HPF (NONE SEEN)
--- NOTE | 2020-04-13 23:57 | EDPHYS ---
Physician Documentation [facility] Name: Yennifer Trujillo Age: 54 yrs Sex: Female : 1965 Arrival Date: 04/13/2020 Time: 22:19 Bed 8 Private MD: ED Physician Espinoza Bruno HPI: 04/13 22:52 This 54 yrs old Female presents to ER via Ambulatory with complaints of FEMALE pkl PROLEMS. 22:52 The patient presents with urinary symptoms, dysuria, feels like the uterus is falling pkl out. Onset: The symptoms/episode began/occurred 10 day(s) ago. The patient has experienced a previous episode, approximately 3 months ago. EXTRA HAND: 22:28 unrecalled rr5 Historical: - Allergies: 22:31 No Known Allergies; lp1 - Home Meds: 22:31 lisinopril 10 mg Oral tab 1 tab once daily [Active]; quetiapine 100 mg oral tab nightly lp1 [Active]; - PMHx: 22:31 Anxiety; Hypertension; lp1 - PSHx: 22:31 ; lp1 - Immunization history:: Adult Immunizations up to date. - Social history:: Smoking status: Patient denies any tobacco usage or history of. ROS: 22:52 Positive for urinary symptoms, burning with urination, feels like her uterus is pkl falling out. 22:52 Eyes: Negative for injury, pain, redness, and discharge, ENT: Negative for injury, pain, and discharge, Neck: Negative for injury, pain, and swelling, Cardiovascular: Negative for chest pain, palpitations, and edema, Respiratory: Negative for shortness of breath, cough, wheezing, and pleuritic chest pain, Abdomen/GI: Negative for abdominal pain, nausea, vomiting, diarrhea, and constipation, Back: Negative for injury and pain, MS/Extremity: Negative for injury and deformity, Skin: Negative for injury, rash, and discoloration, Neuro: Negative for headache, weakness, numbness, tingling, and seizure. 22:52 : Positive for urinary symptoms, burning with urination, pressure in vaginal canal. Exam: 22:59 Head/Face: Normocephalic, atraumatic. Eyes: Pupils equal round and reactive to light, pkl extra-ocular motions intact. Lids and lashes normal. Conjunctiva and sclera are non-icteric and not injected. Cornea within normal limits. Periorbital areas with no swelling, redness, or edema. ENT: Nares patent. No nasal discharge, no septal abnormalities noted. Tympanic membranes are normal and external auditory canals are clear. Oropharynx with no redness, swelling, or masses, exudates, or evidence of obstruction, uvula midline. Mucous membranes moist. Neck: Trachea midline, no thyromegaly or masses palpated, and no cervical lymphadenopathy. Supple, full range of motion without nuchal rigidity, or vertebral point tenderness. No Meningismus. Chest/axilla: Normal chest wall appearance and motion. Nontender with no deformity. No lesions are appreciated. Cardiovascular: Regular rate and rhythm with a normal S1 and S2. No gallops, murmurs, or rubs. Normal PMI, no JVD. No pulse deficits. Respiratory: Lungs have equal breath sounds bilaterally, clear to auscultation and percussion. No rales, rhonchi or wheezes noted. No increased work of breathing, no retractions or nasal flaring. Abdomen/GI: Soft, non-tender, with normal bowel sounds. No distension or tympany. No guarding or rebound. No evidence of tenderness throughout. Back: No spinal tenderness. No costovertebral tenderness. Full range of motion. 22:59 : Pelvic Exam: bimanual exam reveals partial prolapse of uterus. 22:59 Musculoskeletal/extremity: Exam is negative for acute changes. 22:59 Skin: Exam negative for rash. 22:59 Neuro: Orientation: is normal, Mentation: is normal, Cranial nerves: grossly normal, Motor: is normal. Vital Signs: 22:28 BP 140 / 100; Pulse 127; Resp 18; Temp 99.3(O); Pulse Ox 100% on R/A; Weight 72.57 kg lp1 (R); Height 5 ft. 2 in. (157.48 cm); 23:05 BP 142 / 94; Pulse 103; Resp 18; Pulse Ox 95% on R/A; mg2 04/14 00:05 BP 129 / 75; Pulse 95; Resp 17; Pulse Ox 99% ; rr5 04/13 22:28 Body Mass Index 29.26 (72.57 kg, 157.48 cm) lp1 MDM: 04/13 22:41 Patient medically screened. pkl 23:54 Data reviewed: vital signs, nurses notes, lab test result(s). ED course: Discussed lab pkl results with patient. Advised to follow up [employer] next week. Patient understood instructions. 04/13 23:10 Order name: Urine Dipstick--Ancillary (enter results); Complete Time: 23:52 ds4 04/13 23:10 Order name: Urine Microscopic Only ds4 04/13 23:10 Order name: Urine Culture ds4 04/13 23:13 Order name: Urine Microscopic Only; Complete Time: 23:52 EDMS Administered Medications: 23:59 Drug: Cipro 500 mg Route: PO; rr5 04/14 00:05 Follow up: Response: Medication administered at discharge. rr5 04/13 23:59 Drug: Pyridium 200 mg Route: PO; rr5 04/14 00:05 Follow up: Response: Medication administered at discharge. rr5 Disposition: 04/13/20 23:57 Discharged to Home. Impression: Cystitis. Patial uterine prolapse . - Condition is Stable. - Prescriptions for Pyridium 200 mg Oral Tablet - take 1 tablet by ORAL route every 8 hours for 3 days; 9 tablet. Cipro 500 mg Oral Tablet - take 1 tablet by ORAL route every 12 hours for 7 days; 14 tablet. - Medication Reconciliation Form, Thank You Letter, Antibiotic Education, Prescription Opioid Use, Work release form form. - Follow up: Private Physician; When: 2 - 3 days; Reason: Re-evaluation by your physician. - Problem is new. - Symptoms are unchanged. Signatures: Dispatcher [employer] EDRI Espinoza Bruno MD MD pkl Alexa Griggs RN RN lp1 Maninder Reina RN RN rr5 Corrections: (The following items were deleted from the chart) 00:07 04/13 23:57 04/13/2020 23:57 Discharged to Home. Impression: Cystitis. Patial uterine rr5 prolapse . Condition is Stable. Forms are Medication Reconciliation Form, Thank You Letter, Antibiotic Education, Prescription Opioid Use. Follow up: Private Physician; When: 2 - 3 days; Reason: Re-evaluation by your physician. Problem is new. Symptoms are unchanged. pkl
--- NOTE | 2020-04-13 23:57 | ER ---
Nurse's Notes [facility] Name: Yennifer Trujillo Age: 54 yrs Sex: Female : 1965 Arrival Date: 04/13/2020 Time: 22:19 Bed 8 Private MD: Diagnosis: Cystitis. Patial uterine prolapse Presentation: 04/13 22:28 Chief complaint: Patient states: "I think my uterus is out again"; patient reports lp1 feeling pressure to vaginal area for the past 10 days; States seen at [facility] 3 months ago for same complaint. Coronavirus screen: Client denies travel out of the [place] in the last 14 days. At this time, the client does not indicate any symptoms associated with coronavirus-19. Ebola Screen: No symptoms or risks identified at this time. Initial Sepsis Screen: Does the patient meet any 2 criteria? No. Patient's initial sepsis screen is negative. Does the patient have a suspected source of infection? No. Patient's initial sepsis screen is negative. Risk Assessment: Do you want to hurt yourself or someone else? Patient reports no desire to harm self or others. Onset of symptoms was April 13, 2020. 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 - Social history:: Smoking status: Patient denies any tobacco usage or history of. Screenin:31 Abuse screen: Denies threats or abuse. Denies injuries from another. Nutritional mg2 screening: No deficits noted. Tuberculosis screening: No symptoms or risk factors identified. Fall Risk None identified. Assessment: 22:29 General: Appears in no apparent distress. comfortable, Behavior is calm, cooperative. mg2 Pain: Complains of pain in genital area. Neuro: Level of Consciousness is awake, alert, obeys commands, Oriented to person, place, time, situation. Cardiovascular: Capillary refill < 3 seconds Patient's skin is warm and dry. Respiratory: Airway is patent Respiratory effort is even, unlabored, Respiratory pattern is regular, symmetrical. GI: No signs and/or symptoms were reported involving the gastrointestinal system. : Reports burning with urination, pain in genital area/ feels like a uterine prolapse the same thing i had before. EENT: No signs and/or symptoms were reported regarding the EENT system. Derm: Skin is intact, is healthy with good turgor, Skin is pink, warm \\T\\ dry. normal. Musculoskeletal: Circulation, motion, and sensation intact. Capillary refill < 3 seconds. 23:05 Reassessment: Patient appears in no apparent distress at this time. No changes from mg2 previously documented assessment. Patient and/or family updated on plan of care and expected duration. Pain level reassessed. Patient is alert, oriented x 3, equal unlabored respirations, skin warm/dry/pink. 04/14 00:06 Reassessment: Patient appears in no apparent distress at this time. Patient is alert, rr5 oriented x 3, equal unlabored respirations, skin warm/dry/pink. discharge instruction given and explained without complaints made Patient states feeling better. Patient states symptoms have improved. Vital Signs: 04/13 22:28 BP 140 / 100; Pulse 127; Resp 18; Temp 99.3(O); Pulse Ox 100% on R/A; Weight 72.57 kg lp1 (R); Height 5 ft. 2 in. (157.48 cm); 23:05 BP 142 / 94; Pulse 103; Resp 18; Pulse Ox 95% on R/A; mg2 04/14 00:05 BP 129 / 75; Pulse 95; Resp 17; Pulse Ox 99% ; rr5 04/13 22:28 Body Mass Index 29.26 (72.57 kg, 157.48 cm) lp1 ED Course: 04/13 22:19 Patient arrived in ED. es 22:23 Maninder Reina RN is Primary Nurse. rr5 22:30 Triage completed. lp1 22:30 Arm band placed on. lp1 22:31 Patient has correct armband on for positive identification. mg2 22:31 Patient did not have IV access during this emergency room visit. mg2 22:40 Espinoza Bruno MD is Attending Physician. pkl 23:30 Assist provider with pelvic exam: Patient tolerated no uterine prolapse noted. mg2 Administered Medications: 23:59 Drug: Cipro 500 mg Route: PO; rr5 04/14 00:05 Follow up: Response: Medication administered at discharge. rr5 04/13 23:59 Drug: Pyridium 200 mg Route: PO; rr5 04/14 00:05 Follow up: Response: Medication administered at discharge. rr5 Outcome: 04/13 23:57 Discharge ordered by . yenni 04/14 00:05 Discharged to home ambulatory, with family. rr5 Condition: stable Discharge instructions given to patient, Instructed on discharge instructions, follow up and referral plans. medication usage, Demonstrated understanding of instructions, follow-up care, medications, Prescriptions given X 2. 00:07 Patient left the ED. rr5 Addendum: 04/17/2020 08:30 Addendum: Culture Results: Positive urine culture. No further action required. Bacteria s v sensitive to prescribed antibiotic. Signatures: Tamara Landa RN RN sv Espinoza Bruno MD MD pkl Salyer, Edna es Pena, Laura, RN RN lp1 Jaime Arora RN RN mg2 Maninder Reina RN RN rr5
[2020-04-14 00:15] VITALS: TEMP 99.3
[2020-04-14] MEDS ORDERED: CIPROFLOXACIN HCL 500 MG TAB ONE (00:15)
[2020-04-14] MEDS ORDERED: PHENAZOPYRIDINE 100MG TAB PO ONE (00:15)
[2020-04-14 00:17] VITALS: BP 129/75; O2SAT 99
== END 2020-04-14 00:07 | disposition home or self-care (01) ==
LOC: ER 22:15
DX: N30.90 Cystitis, unspecified without hematuria (principal); N81.4 Uterovaginal prolapse, unspecified; I10 Essential (primary) hypertension; F41.9 Anxiety disorder, unspecified
CPT/HCPCS: 81003; 81015; 87077; 87086; 87088; 87186; 99283

== ENCOUNTER 2020-07-25 11:30 | Emergency (ER) | payer SELFPAY ==
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
[2020-07-25 14:44] LABS: SARS-COV-2 RT PCR NEGATIVE (NEGATIVE)
--- NOTE | 2020-07-25 15:11 | EDPHYS ---
Physician Documentation [facility] Name: Yennifer Trujillo Age: 54 yrs Sex: Female : 1965 Arrival Date: 07/25/2020 Time: 11:38 Bed 23 Private MD: ED Physician Ruben Benitez HPI: 07/25 15:45 This 54 yrs old Female presents to ER via Ambulatory with complaints of kb Headache, Cough, body aches. 15:45 The patient or guardian reports cough, flu symptoms, myalgias. Onset: The kb symptoms/episode began/occurred 5 day(s) ago. Severity of symptoms: At their worst the symptoms were moderate, in the emergency department the symptoms are unchanged. Modifying factors: The symptoms are alleviated by nothing, the symptoms are aggravated by nothing. Cough, congestion, sore throat, headache, bodyaches started on Thursday. Was called on Thursday and told that one of her coworkers tested positive for covid. 16:30 Associated signs and symptoms: Pertinent positives: rhinorrhea, sore throat. The kb patient has not experienced similar symptoms in the past. The patient has not recently seen a physician. 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 Flu vaccine is not up to date. - Social history:: Smoking status: Patient denies any tobacco usage or history of. ROS: 15:44 Cardiovascular: Negative for chest pain, palpitations, and edema, Abdomen/GI: Negative kb for abdominal pain, nausea, vomiting, diarrhea, and constipation, MS/Extremity: Negative for injury and deformity, Skin: Negative for injury, rash, and discoloration, Neuro: Negative for weakness, numbness, tingling, and seizure. +headache 15:44 Constitutional: Positive for body aches, chills, fatigue, fever, malaise. 15:44 Respiratory: Positive for cough. Exam: 15:45 Constitutional: This is a well developed, well nourished patient who is awake, alert, kb and in no acute distress. Head/Face: Normocephalic, atraumatic. Respiratory: Respirations even and unlabored. No increased work of breathing, no retractions or nasal flaring. Skin: Warm, dry with normal turgor. Normal color. MS/ Extremity: Pulses equal, no cyanosis. Neurovascular intact. Full, normal range of motion. Neuro: Awake and alert, GCS 15, oriented to person, place, time, and situation. Moves all extremities. Normal gait. Vital Signs: 11:55 BP 149 / 100; Pulse 81; Resp 17; Temp 97.0; Pulse Ox 100% on R/A; Weight 64.86 kg; ll1 Height 5 ft. 2 in. (157.48 cm); Pain 9/10; 12:46 BP 166 / 96; Pulse 74; Resp 15; Pulse Ox 97% ; Pain 9/10; jl7 13:48 BP 150 / 97; Pulse 73; Resp 16; Pulse Ox 97% on R/A; mh5 15:20 BP 154 / 95; Pulse 75; Resp 17; Pulse Ox 98% on R/A; ll1 11:55 Body Mass Index 26.15 (64.86 kg, 157.48 cm) ll1 MDM: 12:34 Patient medically screened. kb 15:44 Data reviewed: vital signs, nurses notes. Data interpreted: Pulse oximetry: on room air kb is 97 %. Interpretation: normal. Counseling: I had a detailed discussion with the patient and/or guardian regarding: the historical points, exam findings, and any diagnostic results supporting the discharge/admit diagnosis, lab results, the need for outpatient follow up, a family practitioner, to return to the emergency department if symptoms worsen or persist or if there are any questions or concerns that arise at home. 07/25 14:45 Order name: COVID-19/FLU A+B; Complete Time: 14:48 EDMS Administered Medications: No medications were administered Disposition: 07/26 07:29 Co-signature as Attending Physician, Ruben Benitez MD I agree with the assessment and kdr plan of care. Disposition: 07/25/20 15:10 Discharged to Home. Impression: Acute upper respiratory infection, unspecified. - Condition is Stable. - Discharge Instructions: Viral Respiratory Infection, Eyfd-Al-Fazt, COVID-19. - Medication Reconciliation Form, Thank You Letter, Antibiotic Education, Prescription Opioid Use form. - Follow up: Emergency Department; When: As needed; Reason: Worsening of condition. Follow up: Private Physician; When: 2 - 3 days; Reason: Recheck today's complaints, Continuance of care, Re-evaluation by your physician. Signatures: Dispatcher [employer] EDFL Loly Figueroa, RAND-Oral ACUTE DIALYSIS REGISTERED NURSE-Ruben Crane MD MD kdr Bro Hartmann RN RN jl7 Imelda Louis RN RN ll1 Corrections: (The following items were deleted from the chart) 07/25 13:47 12:25 CORONAVIRUS+MR.LAB.BRZ ordered. [facility] 13:47 12:25 Influenza Screen (A \T\ B)+BA.LAB.BRZ ordered. [facility] 15:21 15:10 07/25/2020 15:10 Discharged to Home. Impression: Acute upper respiratory ll1 infection, unspecified. Condition is Stable. Forms are Medication Reconciliation Form, Thank You Letter, Antibiotic Education, Prescription Opioid Use. Follow up: Emergency Department; When: As needed; Reason: Worsening of condition. Follow up: Private Physician; When: 2 - 3 days; Reason: Recheck today's complaints, Continuance of care, Re-evaluation by your physician. kb 15:45 15:44 Cardiovascular: Negative for chest pain, palpitations, and edema, Abdomen/GI: kb Negative for abdominal pain, nausea, vomiting, diarrhea, and constipation, MS/Extremity: Negative for injury and deformity, Skin: Negative for injury, rash, and discoloration, Neuro: Negative for headache, weakness, numbness, tingling, and seizure, kb
--- NOTE | 2020-07-25 15:11 | ER ---
Nurse's Notes [facility] Name: Yennifer Trujillo Age: 54 yrs Sex: Female : 1965 Arrival Date: 07/25/2020 Time: 11:38 Bed 23 Private MD: Diagnosis: Acute upper respiratory infection, unspecified Presentation: 07/25 11:55 Chief complaint: Patient states: CONNOLLY, cough, sore throat, body aches, nausea sinc e ll1 Thursday. Was exposed to a covid positive co-worker. Coronavirus screen: Client denies travel out of the [place] in the last 14 days. chills, congestion, cough unrelated to allergies, fatigue, headache, muscle pain, nausea, runny nose, sore throat, Client presents with at least one sign or symptom that may indicate coronavirus-19. Standard/surgical mask placed on the client. Ebola Screen: Patient denies travel to an Ebola-affected area in the 21 days before illness onset. Initial Sepsis Screen: Does the patient meet any 2 criteria? No. Patient's initial sepsis screen is negative. Does the patient have a suspected source of infection? Yes: Productive cough/pneumonia. Risk Assessment: Do you want to hurt yourself or someone else? Patient reports no desire to harm self or others. Onset of symptoms was July 21, 2020. 11:55 Method Of Arrival: Ambulatory ll1 11:55 Acuity: LALITA 4 ll1 Triage Assessment: 15:21 Headache History: Denies prior headaches. General: Appears in no apparent distress. ll1 Behavior is calm, cooperative, appropriate for age. Pain: Complains of pain in head Quality of pain is described as aching, Pain began off/on for 5 days Also complains of nausea, body aches, fatigue. 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 Flu vaccine is not up to date. - Social history:: Smoking status: Patient denies any tobacco usage or history of. Screenin:46 Abuse screen: Denies threats or abuse. Denies injuries from another. Nutritional jl7 screening: No deficits noted. Tuberculosis screening: No symptoms or risk factors identified. Fall Risk None identified. Assessment: 12:46 General: Appears in no apparent distress. uncomfortable, Behavior is calm, cooperative, jl7 appropriate for age. Pain: Complains of pain in CONNOLLY Pain currently is 9 out of 10 on a pain scale. Pain began 2-3 days ago. Is continuous. Neuro: Level of Consciousness is awake, alert, obeys commands, Oriented to person, place, time, situation. Cardiovascular: Denies chest pain, Patient's skin is warm and dry. Respiratory: Airway is patent Respiratory effort is even, unlabored, Respiratory pattern is regular, symmetrical, Denies shortness of breath. EENT: Reports nasal discharge that is watery. Derm: Skin is pink, warm \T\ dry. 13:41 Reassessment: Patient appears in no apparent distress at this time. No changes from jl7 previously documented assessment. Patient and/or family updated on plan of care and expected duration. Pain level reassessed. Patient is alert, oriented x 3, equal unlabored respirations, skin warm/dry/pink. Awaiting lab results. 15:20 Reassessment: No changes from previously documented assessment. Patient and/or family ll1 updated on plan of care and expected duration. Pain level reassessed. Vital Signs: 11:55 BP 149 / 100; Pulse 81; Resp 17; Temp 97.0; Pulse Ox 100% on R/A; Weight 64.86 kg; ll1 Height 5 ft. 2 in. (157.48 cm); Pain 9/10; 12:46 BP 166 / 96; Pulse 74; Resp 15; Pulse Ox 97% ; Pain 9/10; jl7 13:48 BP 150 / 97; Pulse 73; Resp 16; Pulse Ox 97% on R/A; 5 15:20 BP 154 / 95; Pulse 75; Resp 17; Pulse Ox 98% on R/A; ll1 11:55 Body Mass Index 26.15 (64.86 kg, 157.48 cm) ll1 ED Course: 11:38 Patient arrived in ED. mr 11:54 Arm band placed on. ll1 11:57 Triage completed. ll1 12:24 Loly Figueroa FNP-C is [facility]. kb 12:24 Ruben Benitez MD is Attending Physician. kb 12:33 Bro Hartmann, RN is Primary Nurse. jl7 12:46 Patient has correct armband on for positive identification. Bed in low position. Call jl7 light in reach. Side rails up X 1. Pulse ox on. NIBP on. 12:46 COVID swab sent to lab. jl7 15:21 No provider procedures requiring assistance completed. Patient did not have IV access ll1 during this emergency room visit. Administered Medications: No medications were administered Outcome: 15:10 Discharge ordered by . kb 15:21 Patient left the ED. ll1 15:21 Discharged to home ambulatory. ll1 15:21 Condition: stable 15:21 Discharge instructions given to patient, Instructed on discharge instructions, follow up and referral plans. Demonstrated understanding of instructions, follow-up care. Signatures: Loly Figueroa FNP-C FNP-Stacey KuMargoth mr [facility]An[facility] Bro Hartmann, RN RN jl7 Imelda Louis, ANNE RN ll1
[2020-07-25 15:30] VITALS: TEMP 97
[2020-07-25 15:38] VITALS: O2SAT 97
[2020-07-25 15:42] VITALS: BP 150/97
== END 2020-07-25 15:21 | disposition home or self-care (01) ==
LOC: ER 11:30
DX: J06.9 Acute upper respiratory infection, unspecified (principal); Z20.822 Contact with and (suspected) exposure to COVID-19; I10 Essential (primary) hypertension; F41.9 Anxiety disorder, unspecified
CPT/HCPCS: 0240U; 99283

== ENCOUNTER 2021-03-17 05:46 | Emergency (ER) | payer SELFPAY ==
--- OUTSIDE RECORDS SUMMARY | 2021-03-17 05:51 | XMS REPORT | Continuity of Care Document ---
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 supraclinoid internal carotidartery segments are patent. The anterior and middle cerebral arteries arepatent. An anterior communicating artery is present.CTA NEC K:Classic 3 vessel aortic arch branching anatomy is noted. The arch vesselorigins are widely patent.The innominate and subclavian arteries arepatent.Calcified plaque in the origin of both subclavian arteries results in mildleft and mild to moderate right-sided narrowingThe common carotid arteries, carotid bulbs and cervical internal carotidarteries are patent.The vertebral arteries are patent from their subclavian origins through thevertebrobasilar junction. The left vertebral artery is mildly dominant.IMPRESSIONNo aneurysm or high-grade stenosis is present in the intracranial orcervical vesselsUnTexas Health [facility]villeCT CERVICAL SPINE WO NNIFCOCE7258-07-44 22:32:[address] head No acute osseous abnormality in the cervical spine. Moderate left facetarthropathy at C5-C6. Otherwise, no significant degenerative changes arepresent. CT CERVICAL SPINE WO CONTRAST, CT STROKE HEAD WO CONTRAST HISTORY: Female 55 years Cervical radiculopathy, no red flags COMPARISON: None TECHNIQUE: Routine CT head and CT cervical spine were obtained without IVcontrast FINDINGS: CT head: The ventricles and cerebral sulci are normal in caliber and configuration.No hydrocephalus, midline shift or pathological extra- axial fluidcollection is present. The basal cisterns are unremarkable. No acute intracranial hemorrhage or mass effect is present. The vigil-whitematter differentiation ispreserved. No parenchymal attenuation abnormalityis present. The calvarium and skull base are unremarkable. The mastoid air cells andvisualized paranasal air sinuses are clear. CT cervical spine: Slight reversal of the normal cervical lordosis. Minimal anterolisthesis ofC2 over C3 and C3 over C4. The vertebral bodies are normal in height andotherwise normal alignment. No facet fracture or subluxationis present.The craniocervical junction is intact. The prevertebral soft tissues areunremarkable. Moderate facet arthropathy is noted at C5-C6 on the left. Otherwise,significant degenerative changes arepresent. [facility], [facility]iant Results Inft User - 12/08/2020 5:[address] CERVICAL SPINE WO CONTRAST, CT STROKE HEAD WO CONTRASTHISTORY: Female 55 years Cervical radiculopathy, no red flags COMPARISON: NoneTECHNIQUE: Routine CT head and CT cervical spine were obtained without IVcontrastFINDINGS:CT head:The ventricles and cerebral sulci are normal in caliber and configuration.No hydrocephalus, midline shift or pathological extra-axial fluidcollection is present. The basal cisterns are unremarkable.No acute intracranial hemorrhage or mass effectis present. The vigil-whitematter differentiation is preserved. No parenchymal attenuation abnormalityis present.The calvarium and skull base are unremarkable. The mastoid air cells andvisualized paranasal air sinuses are clear.CT cervical spine:Slight reversal of the normal cervical lordosis. Minimal anterolisthesis ofC2 over C3 and C3 over C4. The vertebral bodies are normal in height andotherwise normal alignment. No facet fracture or subluxation is present.The craniocervical junction is intact. The prevertebral soft tissues areunremarkable.Moderate facet arthropathy is noted at C5-C6 on the left. Otherwise,significant degenerative changes are present.IMPRESSIONNormal CT headNo acute osseous abnormality in the cervical spine. Moderate left facetarthropathy at C5-C6. Otherwise, no significant degenerative changes arepresent.[facility] 2020-12-08 22:32:[address] head No acute osseous abnormality in the cervical spine. Moderate left facetarthropathy at C5-C6. Otherwise, no significant degenerative changes arepresent. CT CERVICAL SPINE WO CONTRAST, CT STROKE HEAD WO CONTRAST HISTORY: Female 55 years Cervical radiculopathy, no red flags COMPARISON: None TECHNIQUE: Routine CT head and CT cervical spine were obtained without IVcontrast FINDINGS: CT head: The ventricles and cerebral sulci are normal in caliber and configuration.No hydrocephalus, midline shift or pathological extra-axial fluidcollection is present. The basal cisterns are unremarkable. No acute intracranial hemorrhage or mass effect is present. The vigil-whitematter differentiation ispreserved. No parenchymal attenuation abnormalityis present. The calvarium and skull base are unremarkable. The mastoid air cells andvisualized paranasal air sinuses are clear. CT cervical spine: Slight reversal of the normal cervical lordosis. Minimal anterolisthesis ofC2 over C3 and C3 over C4. The vertebral bodies are normal in height andotherwise normal alignment. No facet fracture or subluxationis present.The craniocervical junction is intact. The prevertebral soft tissues areunremarkable. Moderate facet arthropathy is noted at C5-C6 on the left. Otherwise,significant degenerative changes arepresent. [facility], [facility] Results Inft User - 12/08/2020 5:[address] CERVICAL SPINE WO CONTRAST, CT STROKE HEAD WO CONTRASTHISTORY: Female 55 years Cervical radiculopathy, no red flags COMPARISON: NoneTECHNIQUE: Routine CT head and CT cervical spine were obtained without IVcontrastFINDINGS:CT head:The ventricles and cerebral sulci are normal in caliber and configuration.No hydrocephalus, midline shift or pathological extra-axial fluidcollection is present. The basal cisterns are unremarkable.No acute intracranial hemorrhage or mass effectis present. The vigil-whitematter differentiation is preserved. No parenchymal attenuation abnormalityis present.The calvarium and skull base are unremarkable. The mastoid air cells andvisualized paranasal air sinuses are clear.CT cervical spine:Slight reversal of the normal cervical lordosis. Minimal anterolisthesis ofC2 over C3 and C3 over C4. The vertebral bodies are normal in height andotherwise normal alignment. No facet fracture or subluxation is present.The craniocervical junction is intact. The prevertebral soft tissues areunremarkable.Moderate facet arthropathy is noted at C5-C6 on the left. Otherwise,significant degenerative changes are present.IMPRESSIONNormal CT headNo acute osseous abnormality in the cervical spine. Moderate left facetarthropathy at C5-C6. Otherwise, no significant degenerative changes arepresent.[facility] TROPONIN [id number] 22:22:26 Test Item Value Reference Range Interpretation Comments TROPONIN I (test code = 0.004 ng/mL See_Comment [Au tomated [id number]) message] The sy stem which generated this result transmitted reference range : <=0.034. The reference range was not used to interpret this result as normal/abnormal . GARCIA (test code = GARCIA) Lab Interpretation Normal (test code = 98601-0) [facility] Rock[facility]IPASE2021-08-28 22:21:56 Test Item Value Reference Range Interpretation Comments LIPASE (test code = 8276177401) 2065 U/L 0-220 H Lab Interpretation (test code = Abnormal 42134-5) [facility] RockCOVID-19 (ID NOW RAPID TESTING)2020-12-08 22:13:04 Test Item Value Reference Range Interpretation Comments SARS-CoV-2 Rapid ID NOW (test Not Detected Not Detected code = 95839-1) GARCIA (test code = GARCIA) Lab Interpretation (test code = Normal 80241-0) [facility] RockCOMP. METABOLIC PANEL (39098)2020-12-08 22:10:22 Test Item Value Reference Range Interpretation Comments NA (test code = 7529241870) 136 mmol/L 135-145 K (test code = 5657550793) 3.9 mmol/L 3.5-5.0 CL (test code = 9338593486) 99 mmol/L 98-108 CO2 TOTAL (test code = 4890938259) 27 mmol/L 23-31 AGAP (test code = 3499960550) 2-16 BUN (test code = 1224582712) 9 mg/dL 7-23 GLUCOSE (test code = 6711808662) 261 mg/dL 70-110 H CREATININE (test code = 0.34 mg/dL 0.50-1.04 L 2656475533) TOTAL BILI (test code = 0.7 mg/dL 0.1-1.7 8530432289) CALCIUM (test code = 8861688795) 9.7 mg/dL 8.6-10.6 T PROTEIN (test code = 9305819441) 8.1 g/dL 6.3-8.2 ALBUMIN (test code = 4678903887) 4.7 g/dL 3.5-5.0 ALK PHOS (test code = 9781487133) 179 U/L 34-122 H ALTv (test code = 1742-6) 14 U/L 5-35 AST(SGOT) (test code = 9161749179) 31 U/L 13-40 eGFR (test code = 5605472015) mL/min/1.73m2 GARCIA (test code = GARCIA) Lab Interpretation (test code = Abnormal 48986-3) [facility]INALYSIS2021-08-28 22:10:17 Test Item Value Reference Range Interpretation Comments APPEARANCE (test code = Clear Clear 3747252405) COLOR (test code = Yellow Yellow 1303252415) PH (test code = 4.8-8.0 4205850462) SP GRAVITY (test code = 1.003-1.030 H 7844062119) GLU U QUAL (test code = 500 mg/dL Normal A 7714847087) BLOOD (test code = Negative Negative 1468721076) KETONES (test code = Negative Negative 6698221482) PROTEIN (test code = Negative Negative 2887-8) UROBILIN (test code = Normal Normal 2580412062) BILIRUBIN (test code = Negative Negative 1245085337) NITRITE (test code = Negative Negative 9493301300) LEUK BENITO (test code = Negative Negative 6395558302) RBC/HPF (test code = See_Comment [Autom ated message] 0103636184) The system [employer] generated this result transmit dimitry reference range : 0 - 3 HPF. The refe rence range was not u sed to interpret th is result as normal/abnormal . WBC/HPF (test code = See_Comment [Autom ated message] 9253539299) The system [employer] generated this result transmit dimitry reference range : 0 - 5 HPF. The refe rence range was not u sed to interpret th is result as normal/abnormal . BACTERIA (test code = Negative Negative 0580449022) MUCOUS (test code = Slight Negative LPF A 1416486538) SQ EPITH (test code = HPF 3645878231) Lab Interpretation (test Abnormal code = 45971-8) [facility] WITH LEBB9012-41-57 21:57:03 Test Item Value Reference Range Interpretation Comments WBC (test code = See_Comment [Automated 6690-2) message] The sy stem which generated this result transmitted reference range : 4.30 - 11.10 10*3/?L. The reference range was not used to interpret this result as normal/abnormal . RBC (test code = See_Comment H [Automated 789-8) message] The sy stem which generated this result transmitted reference range : 3.93 - 5.25 10*6/?L. The reference range was not used to interpret this result as normal/abnormal . HGB (test code = 15.7 g/dL 11.6-15.0 H 718-7) HCT (test code = 44.1 % 35.7-45.2 4544-3) MCV (test code = 83.8 fL 80.6-95.5 787-2) MCH (test code = 29.8 pg 25.9-32.8 785-6) MCHC (test code = 35.6 g/dL 31.6-35.1 H 786-4) RDW-SD (test code = 35.1 fL 39.0-49.9 L 82900-3) RDW-CV (test code = 11.6 % 12.0-15.5 L 788-0) PLT (test code = See_Comment [Automated 777-3) message] The sy stem which generated this result transmitted reference range : 166 - 358 10*3/ ?L. The reference r monique was not used to interpret this result as normal/abnormal . MPV (test code = 10.3 fL 9.5-12.9 45535-9) NRBC/100 WBC (test See_Comment [Automat ed code = 6579856454) message] The system which generated this result transmitted reference range : 0.0 - 10.0 /100 WBCs. The refer ence range was not u sed to interpret th is result as normal/abnormal . NRBC x10^3 (test code <0.01 See_Comment [Auto mated = 7286249066) message] The s ystem which generated this result transmitted reference range : 10*3/?L. The reference range was not used to interpret this result as normal/abnormal . GRAN MAT (NEUT) % 55.1 % (test code = 770-8) IMM GRAN % (test code 0.70 % = 6409061857) LYMPH % (test code = 35.5 % 736-9) MONO % (test code = 7.2 % 5905-5) EOS % (test code = 0.9 % 713-8) BASO % (test code = 0.6 % 706-2) GRAN MAT x10^3(ANC) 4.98 10*3/uL 1.88-7.09 (test code = 5827328905) IMM GRAN x10^3 (test 0.06 10*3/uL 0.00-0.06 code = 8341258123) LYMPH x10^3 (test code 3.21 10*3/uL 1.32-3.29 = 731-0) MONO x10^3 (test code 0.65 10*3/uL 0.33-0.92 = 742-7) EOS x10^3 (test code = 0.08 10*3/uL 0.03-0.39 711-2) BASO x10^3 (test code 0.05 10*3/uL 0.01-0.07 = 704-7) Lab Interpretation Abnormal (test code = 90854-0) [facility] GLUCOSE (AUTOMATED)2020-12-08 21:39:53 Test Item Value Reference Range Interpretation Comments POCT GLU (test code = 7457297946) 255 mg/dL 70-110 H Lab Interpretation (test code = Abnormal 71938-1) [facility] RockELECTROLYTES2016-09-14 09:13:0028[facility] WqwygbsZOWZPEGHRFKE4499-30-85 09:13:74224Junqiyok TevbctqWMHFWUDHFVDZ8197-58-74 09:13:003.8[facility] OogegmzHEGMWTNVUBRF2825-72-35 09:13:06777[facility] UWACBFZSII8518-32-50 09:13:000.7[facility] SqvdelcDUMUQBYIZK8736-15-71 09:13:000.1 [facility] EhxccviZXZZWQKWBU9985-63-95 09:13:000.5[facility] HermannHEMATOLOGY 2015-12-26 09:13:005.1[facility] SppetbqIDAZQGESKL1028-74-62 09:13:002.6[facility] VonzmpvSSIDHYJUOY8697-20-77 09:13:007.9[facility] ImtwmxqWTPQHLENJA2929-96-28 09:13:000.7[facility] VxnafvkSDPYQYWVTM4397-97-18 09:13:0060.0[facility] NBOBMNVBNY8437-16-70 09:13:0030.9[facility] FxioxdkJAQHTOMKOO2030-06-46 09:13:00 9.2[facility] IfrfikiYJJEKMRBCG2716-74-99 09:13:0034.3[facility]annHEMATOLOGY 2015-12-26 09:13:0012.4[facility] IywhrhaFJERPYKEGU8085-89-01 09:13:58968Zrpdyyam KkyllsiJOCQSHJLJN4920-11-28 09:13:0038.9[facility] LmfdiatMUAIZFKJBT0472-07-97 09:13:0013.4[facility] DahycavKBOTWXEBFD9364-37-49 09:13:00 Test Item Value Reference Range Interpretation Comments MCH (test code = MCH) 29.7 pg 27.0-31.0 [facility] LpdxkvjCYQBESEUTK7423-32-46 09:13:0086.6[facility] HermannHEMATOLOGY 2015-12-26 09:13:004.49[facility] ShpchhvITIVJKWPRU2769-35-44 09:13:008.4[facility] HermannCHEM RAGFR1809-48-92 09:13:002.5[facility]annCHEM LWQCH7338-27-37 09:13:002.1[facility] XrzbxiyCJLUUKGFFCOA7906-10-53 09:13:008.8[facility] WMFZSMEBPMHE1451-14-88 09:13:67380Fgalgjac GgqyoloHZHKJNTMFYUM5681-12-52 09:13:000.62[facility] OtcgijsZYUNNMWGBHMC0491-56-29 09:13:0013[facility] BWHABLONYTUW4682-72-20 09:13:43156Iscumcqw MygikszJMMMODUZAPCL2528-42-99 09:13:008.6[facility] HermannCARDIAC HZHXIHN0547-78-67 17:52:0079[facility] CARDIAC OJSSFVP4310-71-97 17:52:001.3[facility] HermannCARDIAC NXLTEBC0979-75-69 17:52:001.6[facility]annCARDIAC BMGTYJC4448-10-20 17:52:00<0.02[facility] NkalicmPZFRDCBHIL3114-17-51 10:45:0034.7[facility] AyxroslTSOJBJYAOV9203-12-98 10:45:009.8[facility] BksqlhiDUIPJENEOI9005-80-79 10:45:0085.9[facility] BACTERIAL - GFGAQMTE9025-44-95 10:45:00Negative (12/25/15 5:45 AM)[facility]annCARDIAC PDUFSPR8520-81-24 10:45:0080[facility]annCARDIAC ENZYMES 2015-12-25 10:45:001.7[facility] XxkqwyaZIIFMCZKCK8541-66-62 10:45:0012.7[facility] HermannCARDIAC LYXYVEQ1818-46-28 10:45:002.1[facility]annCARDIAC ENZYMES 2015-12-25 10:45:00<0.02[facility]annCARDIAC DQXSPXH5083-15-81 10:45:00 <0.010[facility] HermannCHEM YOSMK8698-84-56 10:45:003.4[facility]annCHEM EZGQZ2263-26-46 10:45:006.9[facility] HermannCHEM UBAVG6188-00-27 10:45:0092 [facility]annCHEM QLMWK5298-17-16 10:45:000.8[facility] HermannCHEM PANEL 2015-12-25 10:45:0029[facility] HermannCHEM MTPGA4404-69-77 10:45:003.8[facility] HermannCHEM SPQHG5084-04-82 10:45:003.1[facility] RdqmlueNOMUQBJTCL3596-53-66 10:45:00 Test Item Value Reference Range Interpretation Comments MCH (test code = MCH) 29.8 pg 27.0-31.0 [facility]annCHEM HAKSH5175-58-25 10:45:0030[facility] HermannCHEM PANEL 2015-12-25 10:45:000.5[facility] HermannCHEM NWTTI3805-68-64 10:45:000.6[facility] HermannCHEM MFWJE4849-20-13 10:45:000.1[facility]annCHEM NZEKF3890-49-76 10:45:002.0[facility] GjxmxmfMIKXPKSQZWNR1098-50-18 10:45:0011.1[facility] AVQXEOXDHYJW1873-06-33 10:45:59355Zswrdexv DlzphmqKQUPXCIYVOJM0467-72-11 10:45:008.4[facility] KzsbywbTLPTQNFYVOSG3800-16-95 10:45:0012[facility] AQZYYLVXFKJE4910-11-43 10:45:000.61[facility] DoxttqhUUZXYQERCZ7259-10-79 10:45:00 40.0[facility] NiaftvcTZZSNNAZLGPY6069-52-98 10:45:80945Tbszuukh Justin STTEIMWYACKL2293-99-28 10:45:49175Toyxrfys WixejzpKTRSTDANXB9786-34-52 10:45:00 166[facility] ObfvakcNAPTDOSHRO2368-38-54 10:45:009.1[facility] HermannHEMATOLOGY 2015-12-25 10:45:000.8[facility] SbzysgtHBMLJOEKYF8202-68-87 10:45:006.3[facility] NermesgDOHBAMQAQW4817-16-65 10:45:002.6[facility] CnietcsENCUAYFCLP2456-50-87 10:45:000.5[facility] XayiaiqFNJUHMDTTI3882-67-76 10:45:008.1[facility] YLBVNVIVQR4216-49-84 10:45:000.4[facility] WfgyjimVPTAATRHUL1328-83-92 10:45:00 64.4[facility] QuwfzuqNYZHUHVAJV5677-06-37 10:45:0026.6[facility] HermannPARATHYROID LPKNLAG0776-62-93 10:45:001.09[facility] HermannPARATHYROID LOMFFEK9790-76-55 10:45:001.13[facility] IhgatnkPENRWEBLYVHJ0813-59-69 10:45:004.1[facility] YXWYBPDQCONK5933-59-18 10:45:29632Gjwjgcze JdrlvmdYRVZGOYGXYUG3885-16-50 10:45:0027[facility] LlaxznmVBXNXGCTZV0902-23-76 10:45:004.66[facility] PZRKUXVDGA5472-60-22 10:45:0013.9[facility] HermannBLOOD BANK DFHTQGB4656-28-83 06:38:00Negative (12/25/15 1:38 AM)[facility]annCHEM WDTSQ2255-60-85 06:38:00 0.69[facility] HermannCHEM LUNFA1173-76-40 06:38:0014[facility] HermannCHEM PANEL 2015-12-25 06:38:004.1[facility] HermannCHEM UWIYW8227-18-08 06:38:09172Domsqjqi HermannCHEM YDXDZ7774-29-34 06:38:26176Naoiubaj HermannCHEM TNUCO2811-41-64 06:38:05872Gltjdiwy HermannCHEM TRUMJ9954-18-82 06:38:0027[facility] HermannCHEM ECWZH0375-37-98 06:38:008.7[facility]ennialCHEM YYKYZ4025-90-87 06:38:76548 [facility]CHE[facility] JTJLS7908-10-06 06:38:0014.1[facility] 2015-12-25 06:38:000.1[facility] RerlyjeYAVHAVXBZQ3965-08-28 06:38:00 Test Item Value Reference Range Interpretation Comments Max Amplitude Rapid (test code = Max 62 mm 52-71 Amplitude Rapid) [facility] HospitalYzadoxmULLUGJSRAN1684-69-82 06:38:008.2[facility] 2015-12-25 06:38:00 Test Item Value Reference Range Interpretation Comments ACT (TEG) Rapid (test code = ACT (TEG) 97 s 86-118 Rapid) [facility] HospitalVfjmlilBTDKZBUHVS8682-13-77 06:38:00 Test Item Value Reference Range Interpretation Comments R-time Rapid (test code = R-time 0.5 min 0.4-0.7 Rapid) [facility] HospitalPpaitmeNDDVRWIYJE5667-67-47 06:38:00 Test Item Value Reference Range Interpretation Comments Split Point Rapid (test code = Split 0.4 min Point Rapid) [facility] HospitalIzvugriOGUGKPGISD8002-33-54 06:38:00 Test Item Value Reference Range Interpretation Comments K-time Rapid (test code = K-time 1.5 min 0.6-2.3 Rapid) [facility] HospitalXouvgkmVLYRNDYDLG1082-40-26 06:38:00 Test Item Value Reference Range Interpretation Comments Angle Rapid (test code = Angle 74 degrees 64-80 Rapid) [facility] HospitalQhhhtkrHNOJACEGQT9739-59-82 06:38:00 Test Item Value Reference Range Interpretation Comments PTT (test code = PTT) 29.8 s 22.9-35.8 [facility] HospitalKkesgvvAXLBELRRQK3296-66-91 06:38:00 Test Item Value Reference Range Interpretation Comments PT (test code = PT) 12.9 s 12.0-14.7 [facility] HospitalQsdjuwcTXTUWWFALV9749-11-86 06:38:000.94[facility] 06:38:0012.7MeinriAsc[facility] AustinTvpovkcBZKCMLZDRO3242-16-57 06:38:0034.3[facility] IlylpqyCLKAGAOIUG5727-10-73 06:38:00 Test Item Value Reference Range Interpretation Comments MCH (test code = MCH) 29.4 pg 27.0-31.0 [facility] XdgzctsBKAUYYRBBC6080-61-26 06:38:0041.6[facility] HermannHEMATOLOGY 2015-12-25 06:38:0014.3[facility] UiffmnnZBEQZGMIXL2494-85-89 06:38:0085.7[facility] JxrogzxXWOWWGSEEO6717-41-94 06:38:42151Duraaqtl ExonzynXYDAUKWFHA9151-97-04 06:38:008.8[facility] VjpmbfdYSYDVNWEDH5269-98-65 06:38:004.86[facility] SQGWKALYTK7165-92-35 06:38:0011.3[facility] AvmtigwTAQGDBIQQF9156-97-99 06:38:00 2.2[facility] CsaaiubOJPUGISJOZ4583-15-94 06:38:000.1[facility]annHEMATOLOGY 2015-12-25 06:38:000.8[facility] OnuvlptSQWUXYDEKT2193-05-06 06:38:008.2[facility] OddqfrpEXXBOWRLBT5860-63-03 06:38:000.7[facility] PfayexuMPZZUZUAIN2245-16-99 06:38:000.3[facility] WqvvjbfONXBUTYDKN6040-95-18 06:38:006.9[facility] OXOTZSVXFA4809-65-07 06:38:0019.1[facility] QxacxudNKQAWSWREF5153-80-77 06:38:00 73.0[facility]
--- NOTE | 2021-03-17 06:16 | EDPHYS ---
Physician Documentation [facility] Name: Yennifer Trujillo Age: 55 yrs Sex: Female : 1965 Arrival Date: 03/17/2021 Time: 05:52 Bed Waiting Private MD: ED Physician Ravinder Harmon HPI: 03/17 08:13 This 55 yrs old Female presents to ER via Ambulatory with complaints of PT BIT kb BY UNKNOWN AND IS INFECTED. 08:13 the patient presents with a swollen area of the dorsal aspect of left forearm. kb Description: erythematous, swollen. Onset: The symptoms/episode began/occurred yesterday. Possible cause(s): insect sting. Associated signs and symptoms: Pertinent positives: erythema, swelling. Modifying factors: the symptoms are alleviated by nothing, the symptoms are aggravated by nothing. Severity of symptoms: At their worst the symptoms were mild, in the emergency department the symptoms are unchanged. The patient has not experienced similar symptoms in the past. The patient has not recently seen a physician. Historical: - Allergies: 06:11 No Known Allergies; lp1 - Home Meds: 06:11 [place] Carbonate Oral [Active]; Buspirone Oral [Active]; lp1 - PMHx: 06:11 Anxiety; Hypertension; Bipolar disorder; lp1 - PSHx: 06:11 None; lp1 - Immunization history:: Adult Immunizations up to date. - Social history:: Smoking status: Patient denies any tobacco usage or history of. ROS: 08:09 Constitutional: Negative for fever, chills, and weight loss. kb 08:09 Skin: Positive for erythema, swelling, of the dorsal aspect of left forearm. 08:09 All other systems are negative. Exam: 08:09 Constitutional: This is a well developed, well nourished patient who is awake, alert, kb and in no acute distress. Head/Face: Normocephalic, atraumatic. ENT: Moist Mucous membranes Respiratory: Respirations even and unlabored. No increased work of breathing, no retractions or nasal flaring. MS/ Extremity: Pulses equal, no cyanosis. Neurovascular intact. Full, normal range of motion. Neuro: Awake and alert, GCS 15, oriented to person, place, time, and situation. Moves all extremities. Normal gait. Psych: Awake, alert, with orientation to person, place and time. Behavior, mood, and affect are within normal limits. 08:09 Skin: Appearance: normal except for affected area, Color: erythematous, swelling, noted on the dorsal aspect of left forearm, that are mild. Vital Signs: 06:09 BP 173 / 114; Pulse 70; Resp 18; Temp 97.2(TE); Pulse Ox 100% on R/A; Weight 63.05 kg lp1 (R); Height 5 ft. 2 in. (157.48 cm); Pain 6/10; 06:09 Body Mass Index 25.42 (63.05 kg, 157.48 cm) lp1 MDM: 06:15 Patient medically screened. kb 08:09 Data reviewed: vital signs, nurses notes. Data interpreted: Pulse oximetry: on room air kb is 100 %. Interpretation: normal. Counseling: I had a detailed discussion with the patient and/or guardian regarding: the historical points, exam findings, and any diagnostic results supporting the discharge/admit diagnosis, the need for outpatient follow up, a family practitioner, to return to the emergency department if symptoms worsen or persist or if there are any questions or concerns that arise at home. Administered Medications: No medications were administered Disposition: 19:10 Co-signature as Attending Physician, Ravinder Harmon MD. [email or web address] Disposition Summary: 03/17/21 06:15 Discharge Ordered Location: Home kb Condition: Stable kb Diagnosis - Local infection of the skin and subcutaneous tissue, unspecified kb Followup: kb - With: Emergency Department - When: As needed - Reason: Worsening of condition Followup: kb - With: Private Physician - When: 2 - 3 days - Reason: Recheck today's complaints, Continuance of care, Re-evaluation by your physician Discharge Instructions: - Discharge Summary Sheet kb - Insect Bite, Adult, Leto-zl-[id number] kb - Skin Abscess, [id number]-[id number] kb Forms: - Medication Reconciliation Form kb - Thank You Letter kb - Antibiotic Education kb - Prescription Opioid Use kb - Work release form lp1 - Family Work Release lp1 Prescriptions: - Bactrim DS 800-160 mg Oral Tablet - take 1 tablet by ORAL route every 12 hours for 10 days; 20 tablet; Refills: 0, kb Product Selection Permitted Signatures: Loly Figueroa, RAND-C RAND-Alexa Chang RN RN lp1 Ravinder Harmon, MD [email or web address]
--- NOTE | 2021-03-17 06:16 | ER ---
Nurse's Notes [facility] Name: Yennifer Trujillo Age: 55 yrs Sex: Female : 1965 Arrival Date: 03/17/2021 Time: 05:52 Bed Waiting Private MD: Diagnosis: Local infection of the skin and subcutaneous tissue, unspecified Presentation: 03/17 06:09 Chief complaint: Patient states: Reports redness to site of left forearm that began 2 lp1 days ago, more redness, itching today. Coronavirus screen: At this time, the client does not indicate any symptoms associated with coronavirus-19. Ebola Screen: No symptoms or risks identified at this time. Initial Sepsis Screen: Does the patient meet any 2 criteria? No. Patient's initial sepsis screen is negative. Does the patient have a suspected source of infection? No. Patient's initial sepsis screen is negative. Risk Assessment: Do you want to hurt yourself or someone else? Patient reports no desire to harm self or others. Onset of symptoms was March 17, 2021. 06:09 Acuity: LALITA 4 lp1 06:09 Method Of Arrival: Ambulatory lp1 Triage Assessment: 06:13 General: Appears in no apparent distress. Behavior is calm, cooperative. Pain: lp1 Complains of pain in dorsal aspect of left forearm and left wrist Pain currently is 6 out of 10 on a pain scale. Quality of pain is described as aching. Neuro: No deficits noted. Cardiovascular: Patient's skin is warm and dry. Respiratory: Respiratory effort is even, unlabored. Derm: slight redness to left forearm close to wrist, skin intact. Musculoskeletal: No deficits noted. Historical: - Allergies: 06:11 No Known Allergies; lp1 - Home Meds: 06:11 [place] Carbonate Oral [Active]; Buspirone Oral [Active]; lp1 - PMHx: 06:11 Anxiety; Hypertension; Bipolar disorder; lp1 - PSHx: 06:11 None; lp1 - Immunization history:: Adult Immunizations up to date. - Social history:: Smoking status: Patient denies any tobacco usage or history of. Screenin:11 Abuse screen: Denies threats or abuse. Denies injuries from another. Nutritional lp1 screening: No deficits noted. Tuberculosis screening: No symptoms or risk factors identified. Fall Risk None identified. Assessment: 06:16 Reassessment: Patient reports not taking BP meds at this time, attempting to get filled lp1 by PCP. Vital Signs: 06:09 BP 173 / 114; Pulse 70; Resp 18; Temp 97.2(TE); Pulse Ox 100% on R/A; Weight 63.05 kg lp1 (R); Height 5 ft. 2 in. (157.48 cm); Pain 6/10; 06:09 Body Mass Index 25.42 (63.05 kg, 157.48 cm) lp1 ED Course: 05:52 Patient arrived in ED. wm 05:58 Loly Figuero[facility] F[facility]-C [facility] kb 05:58 Ravinder Harmon MD is Attending Physician. kb 06:10 Triage completed. lp1 06:11 Arm band placed on right wrist. lp1 06:11 Patient has correct armband on for positive identification. lp1 06:14 No provider procedures requiring assistance completed. Patient did not have IV access lp1 during this emergency room visit. 06:19 Alexa Griggs, RN is Primary Nurse. lp1 Administered Medications: No medications were administered Outcome: 06:15 Discharge ordered by MD. kb 06:21 Discharged to home ambulatory, with family. lp1 06:21 Condition: good 06:21 Discharge instructions given to patient, Instructed on discharge instructions, follow up and referral plans. medication usage, Demonstrated understanding of instructions, follow-up care, medications, Prescriptions given X 1. 06:21 Patient left the ED. lp1 Signatures: Loly Figueroa FNP-C FNP-Alexa Chang RN RN 1 Hermila Farley
[2021-03-17 06:26] VITALS: BP 173/114; TEMP 97.2; O2SAT 100
== END 2021-03-17 06:21 | disposition home or self-care (01) ==
LOC: ER 05:46
DX: L08.9 Local infection of the skin and subcutaneous tissue, unspecified (principal); I10 Essential (primary) hypertension; F31.9 Bipolar disorder, unspecified
CPT/HCPCS: 99282

== ENCOUNTER 2021-12-19 16:58 | Emergency (ER) | payer SELFPAY ==
--- OUTSIDE RECORDS SUMMARY | 2021-12-19 17:04 | XMS REPORT | Continuity of Care Document ---
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 21:49:00 Aj Otero [facility] TROPONIN I 2020-12-08 21:49:00 Aj Otero [facility] COMP. METABOLIC PANEL 2020-12-08 21:49:00 Aj Otero [facility] ([id number]) Medical Branch CBC WITH DIFF 2020-12-08 21:49:00 Aj Otero [facility] URINALYSIS 2020-12-08 21:49:00 Aj Otero [facility] COVID-19 (ID NOW RAPID 2020-12-08 21:49:00 Aj [facility] TESTING) Medical Branch POCT GLUCOSE 2020-12-08 21:37:00 Aj Otero [facility] (AUTOMATED) [facility] NOTICE OF PRIVACY 2020-12-08 21:16:38 Doctor Unassigned, No [facility] PRACTICES Name Medical Branch CONSENT/REFUSAL FOR 2020-12-08 21:15:35 Doctor Unassigned, No [facility] DIAGNOSIS AND TREATMENT Name Medical [place] Encounters Start End Encounter Admission Attending Care Care Encounter Source Date/Time Date/Time Type Type Clinicians Facility Department ID 2021-02-11 Emergency [facility] [id number] Univers 18:47:13 ity of [facility] 2021-02-08 Emergency [facility] [id number] Univers 17:16:30 ity of [facility] 2021-02-08 Emergency [facility] [id number] Univers 16:29:24 ity of [facility] 2021-12-11 2021-12-11 Emergency X AUFDERIDE [facility] ERT [id number] Univers 14:08:00 20:52:00 , ZULLY ity of [facility] 2021-12-11 2021-12-11 [facility] [id number] Univers 14:08:00 20:52:00 , Zully BURLESON 350.1.13.10 i ty of Alexa ARVIND 4.2.7.2.686 [facility] [id number] [facility] 084 Branch 2021-06-23 2021-06-23 [facility] [id number] Univers 17:40:00 19:51:00 ELLE itdelbert [facility] 2021-06-23 2021-06-23 Emergency [facility] [id number] Univers 17:40:00 19:51:00 Elle BURLESON 350.1.13.10 i ty of [place] 4.2.7.2.686 [facility] [id number] [facility] 084 Branch 2020-12-08 2020-12-09 Emergency Aj Otero 1.2.840. 114 [id number] Univers 16:25:00 14:00:00 Sylvester Gerber 350.1.13.10 [facility] 4.2.7.2.686 [facility] [id number] [facility] 098 Branch 2019-12-30 2019-12-30 Telephone Mary Mata [facility] 1.2.840.114 [id number] 00:00:00 00:00:00 PRIMARY 350.1.13.10 CARE 4.2.7.2.686 [facility] [id number] 044 2019-12-26 2019-12-26 Emergency [place], TRAUMA 1.2.517.114 [id number] 05:35:00 09:35:00 [facility] 350.1.13.10 4.2.7.2.686 [id number] [id number] 2019-12-20 2019-12-21 Emergency [facility] [id number] 23:36:00 02:16:00 Irais Burleson 350.1.13.10 [place] 4.2.7.2.686 [place] [id number] 2019-06-08 2019-06-08 Maribel Joe [facility] 1.2.840.114 [id number] 00:00:00 00:00:00 (Out) [facility] 350.1.13.10 Surgical 4.2.7.2.686 Specialti [id number] brandyn Burleson 2019-06-08 2019-06-08 Orders Doctor ROMEL 1.2.840.114 [id number] 00:00:00 00:00:00 Only Unassigned, GEN 350.1.13.10 [facility] 4.2.7.2.686 [id number] 2019-06-06 2019-06-06 Telephone [facility] 1.2.854.462 [id number] 00:00:00 00:00:00 [facility] 350.1.13.10 Surgical 4.2.7.2.686 Specialti [id number] es [address] [place] 2019-06-02 2019-06-02 Emergency [facility] 1.2.640.751 [id number] 15:57:35 17:35:00 Aj [place] 350.1.13.10 [place] 4.2.7.2.686 [place] [id number] 2019-06-02 2019-06-02 Outpatient [facility] [id number] Univers 15:08:12 15:56:00 BECKA ity [facility] 2019-06-02 2019-06-02 [facility] 1.2.840.114 [id number] 15:08:00 15:56:00 Encounter [facility] 350.1.13.10 Surgical 4.2.7.2.686 Specialti [id number] es [address] [place] 2019-06-02 2019-06-02 Office [facility] 1.2.840.114 [id number] 15:05:01 15:20:01 Visit [facility] 350.1.13.10 Surgical 4.2.7.2.686 Specialti [id number] es [address] [place] 2019-06-02 2019-06-02 Letter [facility] 1.2.840.114 [id number] 00:00:00 00:00:00 (Out) [facility] 350.1.13.10 Surgical 4.2.7.2.686 Specialti [id number] es [address] [place] 2019-06-02 2019-06-02 [facility] 1.2.840.114 [id number] 00:00:00 00:00:00 (Out) [facility] 350.1.13.10 Surgical 4.2.7.2.686 Specialti [id number] [address] [place] 2019-05-24 2019-05-24 Emergency X SAMUEL [facility] ERT [id number] Univers 21:09:57 23:02:00 ELLE pettit [facility] 2016-02-07 2016-02-07 Outpatient MHIE IE [id number] Memoria 12:15:00 12:15:00 01 nia [place] 2016-02-07 2016-02-07 Outpatient IE IE [id number] Memoria 12:15:00 12:15:00 01 [facility] 2016-01-10 2016-01-11 Outpt Diag nullFlavo [facility] [id number] Memoria 16:08:00 04:59:00 Services r Outpatient 00 l Imaging [facility] 2016-01-10 2016-01-11 Outpt Diag nullFlavo [facility] [id number] Memoria 16:08:00 04:59:00 Services r Outpatient 00 l Imaging [facility] 2016-01-10 2016-01-10 Outpatient FRANSICO To OIP [id number] 11:08:00 23:59:00 Darryl Seiji 00 2015-12-25 2015-12-26 Inpatient [facility] [id number] Memoria 05:06:00 21:14:[address] 2015-12-25 2015-12-26 Inpatient [facility] [id number] Memoria 05:06:00 21:14:[address] 2015-12-25 2015-12-26 Outpatient Kaushik [facility] [id number] 00:06:00 16:14:00 Demetrius Verdugo Results Test Description Test Time Test Comments Results Result [facility] e Comments MR STROKE BRAIN 2020-11-12 Normal MRI brain [facility] [place] CONTRAST 9 Preliminary Report [facility] 16:07:57 Dictated by Resident: Yissel waivan Doherty I, Romel Candelaria MD., have reviewed this study [...] = GARCIA) Lab Interpretation (test code = 90719-9) Abnormal [facility] LIPID PANEL (73709)(TOTAL CHOLESTEROL, TRIGLYCERIDES, HDL)2020-12-09 08:51:58 Test Item Value Reference Range Interpretation Comments CHOL (test code = 214 mg/dL 120-200 H 0538578842) HDL (test code = 31 mg/dL >50 L 7888042961) HDLC RATIO (test code = See_Comment H [Au tomated message] 9205996604) The system Guavus generated this result transmit dimitry reference range : <=4.5. The refe rence range was not u sed to interpret th is result as normal/abnormal . TRIG (test code = 325 mg/dL 30-170 H 4005511042) LDL CHOL (test code = 118 mg/dL See_Comment [Auto mated message] 32786-1) The system Guavus generated this result transmit dimitry reference range : <=160. The refe rence range was not u sed to interpret th is result as normal/abnormal . VLDL (test code = 65 mg/dL 5-60 H 3769341145) Lab Interpretation (test Abnormal code = 66961-8) [facility] PLBY5892-04-21 22:39:03 No aneurysm or high-grade stenosis is [...] Cerebral hemorrhage suspected COMPARISON: CT head dated 12/08/2020TECHN IQUE: Routine CTA head and neck were performed following theadministration of IV contrastFINDINGS:CTA head:The PICA origin is visualized bilaterally. The basilar artery is normal incaliber. The superior cerebellar arteries are patent. The posteriorcerebral arteries are patent. origin of the leftposterior cerebralarteries noted. No sizable right posterior communicating [...] stenosis is present in the intracranial orcervical vesselsJohn Peter Smith Hospital CT STROKE ANGIOGRAM JGKF3835-01-00 22:39:03 No aneurysm or high-grade stenosis is [...] posteriorcerebral arteries are patent. origin of the leftposterior cerebralarteries noted. No sizable right posterior communicating [...] stenosis is present in the intracranial orcervical vesselsUnBaylor Scott & [facility] IrvingCT CERVICAL SPINE WO SWEXZSEH8229-33-53 22:32:[address] head No acute osseous abnormality in the cervical spine. Moderate left facetarthropathy at C5-C6. Otherwise, no significant degenerative changes arepresent. CT CERVICAL SPINE WO CONTRAST, CTSTROKE HEAD WO CONTRAST HISTORY: Female 55 years [...] mass effect is present. The vigil-whitematter differentiation is preserved. No parenchymal attenuation abnormalityis present. The calvarium and skull base are unremarkable. The mastoid air cells andvisualized paranasal air sinuses are clear. CT cervical spine: Slight r eversal of the normal cervical lordosis. Minimal anterolisthesis ofC2 over C3 and C3 over C4. The vertebral bodies are normal in height andotherwise normal alignment. No facet fracture or subluxation is present.The craniocervical junction is intact. The prevertebral soft tissues areunremarkable. Moderate facet arthropathy is noted at C5-C6 on the left. Otherwise,significant degenerative changes are present. [facility] [[email or web address]], Radiant Results Inft User - 12/08/2020 5:34 [...] are unremarkable.No acute intracranial hemorrhage or mass effect ispresent. The vigil-whitematter differentiation is preserved. No parenchymal attenuation abnormalityispresent.The calvarium and skull base are unremarkable. The mastoid air cells andvisualized paranasalair sinuses are clear.CT cervical spine:Slight reversal of the normal cervical lordosis. Minimal anterolisthesis ofC2 over C3 and C3 over C4. The vertebral bodies are normal in height andotherwise normal alignment. No facet fracture or subluxation is present.The craniocervical junction is intact. The prevertebral soft tissues areunremarkable.Moderate facet arthropathy is noted at C5-C6 on the left. Ot herwise,significant degenerative changes are present.IMPRESSIONNormal CT headNo acute osseous abnormality in the cervical spine. Moderate left facetarthropathy at C5-C6. Otherwise, no significant degenerative changes arepresent.[facility] WO JYDQQNCA7822-85-51 22:32:[address] head No acute osseous abnormality in the cervical spine. Moderate left facetarthropathy at C5-C6. Otherwise, no significant degenerative changes arepresent. CT CERVICAL SPINE WO CONTRAST, CTSTROKE HEAD WO CONTRAST HISTORY: Female 55 years [...] mass effect is present. The vigil-whitematter differentiation is preserved. No parenchymal attenuation abnormalityis present. The calvarium and skull base are unremarkable. The mastoid air cells andvisualized paranasal air sinuses are clear. CT cervical spine: Slight r eversal of the normal cervical lordosis. Minimal anterolisthesis ofC2 over C3 and C3 over C4. The vertebral bodies are normal in height andotherwise normal alignment. No facet fracture or subluxation is present.The craniocervical junction is intact. The prevertebral soft tissues areunremarkable. Moderate facet arthropathy is noted at C5-C6 on the left. Otherwise,significant degenerative changes are present. [facility], Radiant Results Inft User - 12/08/2020 [...] are unremarkable.No acute intracranial hemorrhage or mass effect ispresent. The vigil-whitematter differentiation is preserved. No parenchymal attenuation abnormalityispresent.The calvarium and skull base are unremarkable. The mastoid air cells andvisualized paranasalair sinuses are clear.CT cervical spine:Slight reversal of the normal cervical lordosis. Minimal anterolisthesis ofC2 over C3 and C3 over C4. The vertebral bodies are normal in height andotherwise normal alignment. No facet fracture or subluxation is present.The craniocervical junction is intact. The prevertebral soft tissues areunremarkable.Moderate facet arthropathy is noted at C5-C6 on the left. Ot herwise,significant degenerative changes are present.IMPRESSIONNormal CT headNo acute osseous abnormality in the cervical spine. Moderate left facetarthropathy at C5-C6. Otherwise, no significant degenerative changes arepresent.[facility] HospitalTROPONIN [id number] 22:22:26 Test Item Value Reference Range Interpretation Comments TROPONIN I (test code = 0.004 ng/mL See_Comment [Au tomated 2968634013) message] The sy stem which generated this result transmitted reference range : <=0.034. The reference range was not used to interpret this result as normal/abnormal . GARCIA (test code = GARCIA) Lab Interpretation Normal (test code = 54501-9) [facility]2021-[facility] 22:21:56 Test Item Value Reference Range Interpretation Comments LIPASE (test code = 4409542257) 2065 U/L 0-220 H Lab Interpretation (test code = Abnormal 55274-5) [facility]OVID[facility] (ID NOW RAPID TESTING)2020-12-08 22:13:04 Test Item Value Reference Range Interpretation Comments SARS-CoV-2 Rapid ID NOW (test Not Detected Not Detected code = 32574-8) GARCIA (test code = GARCIA) Lab Interpretation (test code = Normal 44196-6) [facility]. METABOLIC PANEL (66142)2020-12-08 22:10:22 Test Item Value Reference Range Interpretation Comments NA (test code = 4255228193) 136 mmol/L 135-145 K (test code = 2850030607) 3.9 mmol/L 3.5-5.0 CL (test code = 1607563563) 99 mmol/L 98-108 CO2 TOTAL (test code = 1809347143) 27 mmol/L 23-31 AGAP (test code = 2174910854) 2-16 BUN (test code = 4390656278) 9 mg/dL 7-23 GLUCOSE (test code = 2404309729) 261 mg/dL 70-110 H CREATININE (test code = 0.34 mg/dL 0.50-1.04 L 7420456902) TOTAL BILI (test code = 0.7 mg/dL 0.1-1.9 4269745476) CALCIUM (test code = 9855778039) 9.7 mg/dL 8.6-10.6 T PROTEIN (test code = 3411148508) 8.1 g/dL 6.3-8.2 ALBUMIN (test code = 3493208108) 4.7 g/dL 3.5-5.0 ALK PHOS (test code = 3815786042) 179 U/L 34-122 H ALTv (test code = 1742-6) 14 U/L 5-35 AST(SGOT) (test code = 0049173220) 31 U/L 13-40 eGFR (test code = 2953718390) mL/min/1.73m2 GARCIA (test code = GARCIA) Lab Interpretation (test code = Abnormal 02069-6) [facility]21-[facility] 22:10:17 Test Item Value Reference Range Interpretation Comments APPEARANCE (test code = Clear Clear 7748131767) COLOR (test code = Yellow Yellow 3761481439) PH (test code = 4.8-8.0 5251683702) SP GRAVITY (test code = 1.003-1.030 H 1686413503) GLU U QUAL (test code = 500 mg/dL Normal A 9737804374) BLOOD (test code = Negative Negative 7405680663) KETONES (test code = Negative Negative 2238346827) PROTEIN (test code = Negative Negative 2887-8) UROBILIN (test code = Normal Normal 9006173641) BILIRUBIN (test code = Negative Negative 7510436216) NITRITE (test code = Negative Negative 8213222317) LEUK BENITO (test code = Negative Negative 5691552146) RBC/HPF (test code = See_Comment [Autom ated message] 9928646441) The system Guavus generated this result transmit dimitry reference range : 0 - 3 HPF. The refe rence range was not u sed to interpret th is result as normal/abnormal . WBC/HPF (test code = See_Comment [Autom ated message] 4164486414) The system Guavus generated this result transmit dimitry reference range : 0 - 5 HPF. The refe rence range was not u sed to interpret th is result as normal/abnormal . BACTERIA (test code = Negative Negative 2088151456) MUCOUS (test code = Slight Negative LPF A 1004312713) SQ EPITH (test code = HPF 2385965180) Lab Interpretation (test Abnormal code = 12655-7) [facility] WITH FRDG0064-55-06 21:57:03 Test Item Value Reference Range Interpretation [...] (test code = 35.1 fL 39.0-49.9 L 20905-7) RDW-CV (test code = 11.6 % 12.0-15.5 L 788-0) PLT (test code = See_Comment [Automated 777-3) message] The sy stem which generated this result transmitted reference range : 166 - 358 10*3/ ?L. The reference r monique was not used to interpret this result as normal/abnormal . MPV (test code = 10.3 fL 9.5-12.9 99589-9) NRBC/100 WBC (test See_Comment [Automat ed code = 0802760845) message] The system which generated this result transmitted reference range : 0.0 - 10.0 /100 WBCs. The refer ence range was not u sed to interpret th is result as normal/abnormal . NRBC x10^3 (test code <0.01 See_Comment [Auto mated = 8734380752) message] The s ystem which generated this result transmitted reference range : 10*3/?L. The reference range was not used to interpret this result as normal/abnormal . GRAN MAT (NEUT) % 55.1 % (test code = 770-8) IMM GRAN % (test code 0.70 % = 6421000874) LYMPH % (test code = 35.5 % 736-9) MONO % (test code = 7.2 % 5905-5) EOS % (test code = 0.9 % 713-8) BASO % (test code = 0.6 % 706-2) GRAN MAT x10^3(ANC) 4.98 10*3/uL 1.88-7.09 (test code = 3544632990) IMM GRAN x10^3 (test 0.06 10*3/uL 0.00-0.06 code = 1896198128) LYMPH x10^3 (test code 3.21 10*3/uL 1.32-3.29 = 731-0) MONO x10^3 (test code 0.65 10*3/uL 0.33-0.92 = 742-7) EOS x10^3 (test code = 0.08 10*3/uL 0.03-0.39 711-2) BASO x10^3 (test code 0.05 10*3/uL 0.01-0.07 = 704-7) Lab Interpretation Abnormal (test code = 23268-9) [facility] (AUTOMATED)2020-12-08 21:39:53 Test Item Value Reference Range Interpretation Comments POCT GLU (test code = 9423580892) 255 mg/dL 70-110 H Lab Interpretation (test code = Abnormal 11991-6) [facility]LECT[facility]OLYTES2016-09-14 09:13:00 Test Item Value Reference Range Interpretation Comments BUN (test code = BUN) 13 7-22 [facility]yamblkVCVBQQKBPLMG8976-88-69 09:13:00 Test Item Value Reference Range Interpretation Comments Glucose Lvl (test code = Glucose Lvl) 130 70-99 [facility] HospitalDzhvonxJQGZPBMMPTJM1381-30-96 09:13:00 Test Item Value Reference Range Interpretation Comments Calcium Lvl (test code = Calcium Lvl) 8.6 8.5-10.5 [facility] HospitalQmlgfinRQSKUTYIJMIA2317-53-74 09:13:00 Test Item Value Reference Range Interpretation Comments CO2 (test code = CO2) 28 24-32 [facility] HospitalSvkzbwvYTIHKONXZWKE3835-08-24 09:13:00 Test Item Value Reference Range Interpretation Comments Chloride Lvl (test code = Chloride Lvl) 107 95-109 [facility] HospitalZefqajxLAXAKYZYFZOC4659-92-01 09:13:00 Test Item Value Reference Range Interpretation Comments Potassium Lvl (test code = Potassium 3.8 3.5-5.1 Lvl) [facility] HospitalMmkbatoIKJDCJQRYKUR4027-09-09 09:13:00 Test Item Value Reference Range Interpretation Comments Sodium Lvl (test code = Sodium Lvl) 140 135-145 [facility] TylerLkzxjguVLULUEZGTG4453-72-84 09:13:00 Test Item Value Reference Range Interpretation Comments Monocytes # (test code 0.7 See_Comment [Aut omated message] The = Monocytes #) system which generated this result tra nsmitted reference range : <=0.8. The reference r monique was not used to int erpret this result as normal/abnormal . [facility] TylerMpbowqoCOZMAJKOSB6369-29-02 09:13:00 Test Item Value Reference Range Interpretation Comments Eosinophils # (test code 0.1 See_Comment [A utomated message] The = Eosinophils #) system whic h generated this result tra nsmitted reference range : <=0.5. The reference r monique was not used to int erpret this result as normal/abnormal . [facility] TylerIwdhxaxWZFPYZPQEU5175-80-41 09:13:00 Test Item Value Reference Range Interpretation Comments Basophils (test code = 0.5 See_Comment [Aut omated message] The Basophils) system which ge nerated this result tra nsmitted reference range : <=1.0. The reference r monique was not used to int erpret this result as normal/abnormal . [facility] TylerDkzzdmhNOFRQQMQKM2078-75-03 09:13:00 Test Item Value Reference Range Interpretation Comments Segs-Bands # (test code = Segs-Bands #) 5.1 1.5-8.1 [facility] TylerOaqfkheVCRLKTOXPT2282-69-23 09:13:00 Test Item Value Reference Range Interpretation Comments Lymphocytes # (test code = Lymphocytes 2.6 1.0-5.5 #) [facility] TylerBkxdkzhFWYPPHFAUE3875-33-68 09:13:00 Test Item Value Reference Range Interpretation Comments Monocytes (test code = Monocytes) 7.9 2.0-12.0 [facility] TylerZazlrhbDBZENDRAUX1595-29-33 09:13:00 Test Item Value Reference Range Interpretation Comments Eosinophils (test code = 0.7 See_Comment [A utomated message] The Eosinophils) system which ge nerated this result tra nsmitted reference range : <=4.0. The reference r monique was not used to int erpret this result as normal/abnormal . [facility] TylerRujvvexEWXTVHEMGW6487-60-81 09:13:00 Test Item Value Reference Range Interpretation Comments Segs (test code = Segs) 60.0 45.0-75.0 [facility] TylerMmzdcuiWVCUYQXDHN6203-38-49 09:13:00 Test Item Value Reference Range Interpretation Comments Lymphocytes (test code = Lymphocytes) 30.9 20.0-40.0 [facility] TylerHbjybjmAANVXYHHUO6721-67-50 09:13:00 Test Item Value Reference Range Interpretation Comments MPV (test code = MPV) 9.2 7.4-10.4 [facility] TylerOomizmtBUSNPNTFAK6123-58-77 09:13:00 Test Item Value Reference Range Interpretation Comments MCHC (test code = MCHC) 34.3 32.0-36.0 [facility] TylerNxdqjswFWYUMWGRLY5980-35-36 09:13:00 Test Item Value Reference Range Interpretation Comments RDW (test code = RDW) 12.4 11.5-14.5 [facility] TylerAsraeqiYZWCRLMTXY1281-15-28 09:13:00 Test Item Value Reference Range Interpretation Comments Platelet (test code = Platelet) 157 133-450 [facility] TylerDqfzerfBDIVEGHNYH1150-32-52 09:13:00 Test Item Value Reference Range Interpretation Comments Hct (test code = Hct) 38.9 36.0-48.0 [facility] TylerEcxgxglUMFYWTFHUG3296-36-27 09:13:00 Test Item Value Reference Range Interpretation Comments Hgb (test code = Hgb) 13.4 12.0-16.0 [facility] TylerAjueyndJULXYPPNTN4632-82-32 09:13:00 Test Item Value Reference Range Interpretation Comments MCH (test code = MCH) 29.7 pg 27.0-31.0 [facility] TylerScwvfcbGEDQZLCTDR9440-76-99 09:13:00 Test Item Value Reference Range Interpretation Comments MCV (test code = MCV) 86.6 80.0-98.0 [facility] TylerMtsyzzjLFTGSFESTA3136-71-10 09:13:00 Test Item Value Reference Range Interpretation Comments RBC (test code = RBC) 4.49 4.20-5.40 [facility] TylerAqespfqJMNXOOCCEX2751-19-20 09:13:00 Test Item Value Reference Range Interpretation Comments WBC (test code = WBC) 8.4 3.7-10.4 [facility]2016-09-14 09:13:00 Test Item Value Reference Range Interpretation Comments Phosphorus (test code = Phosphorus) 2.5 2.5-4.5 [facility]2016-09-14 09:13:00 Test Item Value Reference Range Interpretation Comments Phosphorus (test code = Phosphorus) 2.5 2.5-4.5 [facility]2016-09-14 09:13:00 Test Item Value Reference Range Interpretation Comments Magnesium Lvl (test code = Magnesium 2.1 1.8-2.4 Lvl) [facility]QdunctrPCEOAPZGZIKR0964-38-59 09:13:00 Test Item Value Reference Range Interpretation Comments AGAP (test code = AGAP) 8.8 10.0-20.0 [facility] HospitalHrtwjqjYRDURGJOEPZW8740-82-08 09:13:00 Test Item Value Reference Range Interpretation Comments eGFR (test code = eGFR) 104 [facility] HospitalYeqzziyBLGATYQSWLOW7297-75-99 09:13:00 Test Item Value Reference Range Interpretation Comments Creatinine Lvl (test code = Creatinine 0.62 0.50-1.40 Lvl) [facility] HospitalTquuoppCOOINYELPMKZ9424-42-76 09:13:00 Test Item Value Reference Range Interpretation Comments BUN (test code = BUN) 13 7-22 [facility] HospitalDqtubdiPQRGSBLDJAPN7766-97-63 09:13:00 Test Item Value Reference Range Interpretation Comments Glucose Lvl (test code = Glucose Lvl) 130 70-99 [facility]WmcygymGSSRGXIXSUKO2427-44-99 09:13:00 Test Item Value Reference Range Interpretation Comments Calcium Lvl (test code = Calcium Lvl) 8.6 8.5-10.5 [facility] HospitalKyxkvvfZCPDHAFPDQZJ6796-37-09 09:13:00 Test Item Value Reference Range Interpretation Comments CO2 (test code = CO2) 28 24-32 [facility]ClzznjrBFUDKIIUGBAB5826-50-56 09:13:00 Test Item Value Reference Range Interpretation Comments Chloride Lvl (test code = Chloride Lvl) 107 95-109 [facility] HospitalXcetybxDRPAAPWIOICN5409-87-44 09:13:00 Test Item Value Reference Range Interpretation Comments Potassium Lvl (test code = Potassium 3.8 3.5-5.1 Lvl) [facility] HospitalBrlvtdaEGZQYPUAXDBE6254-60-37 09:13:00 Test Item Value Reference Range Interpretation Comments Sodium Lvl (test code = Sodium Lvl) 140 135-145 [facility] TylerCcbdfdwYTUGMBOTSZ1451-67-26 09:13:00 Test Item Value Reference Range Interpretation Comments Monocytes # (test code 0.7 See_Comment [Aut omated message] The = Monocytes #) system which generated this result tra nsmitted reference range : <=0.8. The reference r monique was not used to int erpret this result as normal/abnormal . [facility] TylerXfazaevZDUAYSYJDG3247-59-85 09:13:00 Test Item Value Reference Range Interpretation Comments Eosinophils # (test code 0.1 See_Comment [A utomated message] The = Eosinophils #) system whic h generated this result tra nsmitted reference range : <=0.5. The reference r monique was not used to int erpret this result as normal/abnormal . [facility] TylerTjifoxqRPRIZAYUUD9467-39-55 09:13:00 Test Item Value Reference Range Interpretation Comments Basophils (test code = 0.5 See_Comment [Aut omated message] The Basophils) system which ge nerated this result tra nsmitted reference range : <=1.0. The reference r monique was not used to int erpret this result as normal/abnormal . [facility] TylerSlmorsvKSDQIKPZCO2563-37-92 09:13:00 Test Item Value Reference Range Interpretation Comments Segs-Bands # (test code = Segs-Bands #) 5.1 1.5-8.1 [facility] TylerZdbthlsFMUGGZDTPW1528-61-46 09:13:00 Test Item Value Reference Range Interpretation Comments Lymphocytes # (test code = Lymphocytes 2.6 1.0-5.5 #) [facility] TylerNkvxywpQPMXMQPOHC5320-58-24 09:13:00 Test Item Value Reference Range Interpretation Comments Monocytes (test code = Monocytes) 7.9 2.0-12.0 [facility] TylerDjimlbwMQBNICFDKQ7740-67-60 09:13:00 Test Item Value Reference Range Interpretation Comments Eosinophils (test code = 0.7 See_Comment [A utomated message] The Eosinophils) system which ge nerated this result tra nsmitted reference range : <=4.0. The reference r monique was not used to int erpret this result as normal/abnormal . [facility] TylerHgjtnukUPXOODCVNQ5438-38-61 09:13:00 Test Item Value Reference Range Interpretation Comments Segs (test code = Segs) 60.0 45.0-75.0 [facility] TylerZfanemrBTHTZYTFZB7088-37-06 09:13:00 Test Item Value Reference Range Interpretation Comments Lymphocytes (test code = Lymphocytes) 30.9 20.0-40.0 [facility] TylerXdhxbozSFTYENUKZD6215-52-14 09:13:00 Test Item Value Reference Range Interpretation Comments MPV (test code = MPV) 9.2 7.4-10.4 [facility] TylerYpidzpqYQNRUPFKPD9910-39-59 09:13:00 Test Item Value Reference Range Interpretation Comments MCHC (test code = MCHC) 34.3 32.0-36.0 [facility] TylerEphfpoyPEDUCBZSVO3041-10-34 09:13:00 Test Item Value Reference Range Interpretation Comments RDW (test code = RDW) 12.4 11.5-14.5 [facility] TylerFxbdhgnJZRRLKYGXI2339-10-54 09:13:00 Test Item Value Reference Range Interpretation Comments Platelet (test code = Platelet) 157 133-450 [facility] TylerPeehelxWWQVHMNMLG5053-90-72 09:13:00 Test Item Value Reference Range Interpretation Comments Hct (test code = Hct) 38.9 36.0-48.0 [facility] TylerTnyoruoEYWCRKEWUV1079-45-06 09:13:00 Test Item Value Reference Range Interpretation Comments Hgb (test code = Hgb) 13.4 12.0-16.0 [facility] TylerKghemobZUTTOPFEMN8590-55-18 09:13:00 Test Item Value Reference Range Interpretation Comments MCH (test code = MCH) 29.7 pg 27.0-31.0 [facility] TylerEqxdnmpBXHJCZWDBL8211-92-50 09:13:00 Test Item Value Reference Range Interpretation Comments MCV (test code = MCV) 86.6 80.0-98.0 [facility]KqfqdacSGDBKOIDJW3345-53-52 09:13:00 Test Item Value Reference Range Interpretation Comments RBC (test code = RBC) 4.49 4.20-5.40 [facility] HospitalXbfcvgxFFMVDANSMS0321-72-35 09:13:00 Test Item Value Reference Range Interpretation Comments WBC (test code = WBC) 8.4 3.7-10.4 [facility] HospitalCHEM OFZVY9935-68-55 09:13:00 Test Item Value Reference Range Interpretation Comments Magnesium Lvl (test code = Magnesium 2.1 1.8-2.4 Lvl) [facility]pcacqXUPVKLJFUNUO7763-27-74 09:13:00 Test Item Value Reference Range Interpretation Comments AGAP (test code = AGAP) 8.8 10.0-20.0 [facility]NrmrrjrPOMVAYYOIRYQ8051-81-67 09:13:00 Test Item Value Reference Range Interpretation Comments eGFR (test code = eGFR) 104 [facility] HospitalRuumnmcEWJWINTVGTTW2783-59-91 09:13:00 Test Item Value Reference Range Interpretation Comments Creatinine Lvl (test code = Creatinine 0.62 0.50-1.40 Lvl) [facility] HospitalAgroSavfeAC SEFGWSV5483-29-62 17:52:00 Test Item Value Reference Range Interpretation Comments Total CK (test code = Total CK) 79 12-191 [facility] EJDAINB3352-05-65 17:52:00 Test Item Value Reference Range Interpretation Comments CK MB (test code = CK MB) 1.3 0.5-3.6 [facility]AC VCBYQWT2512-10-09 17:52:00 Test Item Value Reference Range Interpretation Comments CK MB Index (test 1.6 See_Comment [Automate d message] The code = CK MB Index) system w [facility] generated this result transmit dimitry reference range : <=2.5. The reference range was not used to interpr et this result as himanshu l/abnormal. [facility] HospitalAgroSavfeAC JEILKEV5212-24-23 17:52:00 Test Item Value Reference Range Interpretation Comments Troponin-I (test code no gt See_Comment [Auto mated message] The = Troponin-I) system which g enerated this result transmit dimitry reference range : <=0.40. The reference r monique was not used to interpr et this result as himanshu l/abnormal. [facility] RAWUMDX6891-82-92 17:52:00 Test Item Value Reference Range Interpretation Comments Total CK (test code = Total CK) 79 12-191 [facility] RZOLHXD4125-09-86 17:52:00 Test Item Value Reference Range Interpretation Comments CK MB (test code = CK MB) 1.3 0.5-3.6 [facility] MHPLNSW8195-16-09 17:52:00 Test Item Value Reference Range Interpretation Comments CK MB Index (test 1.6 See_Comment [Automate d message] The code = CK MB Index) system w [facility] generated this result transmit dimitry reference range : <=2.5. The reference range was not used to interpr et this result as himanshu l/abnormal. [facility] CNIUMZY1998-97-53 17:52:00 Test Item Value Reference Range Interpretation Comments Troponin-I (test code no gt See_Comment [Auto mated message] The = Troponin-I) system which g enerated this result transmit dimitry reference range : <=0.40. The reference r monique was not used to interpr et this result as himanshu l/abnormal. [facility] HospitalTcnrggqHDBTDARRRO6888-42-58 10:45:00 Test Item Value Reference Range Interpretation Comments Basophils (test code = 0.5 See_Comment [Aut omated message] The Basophils) system which ge nerated this result tra nsmitted reference range : <=1.0. The reference r monique was not used to int erpret this result as normal/abnormal . [facility] HospitalGvsswqzWKXSOTWEGS8491-37-30 10:45:00 Test Item Value Reference Range Interpretation Comments Monocytes (test code = Monocytes) 8.1 2.0-12.0 [facility] HospitalNxfqblkHNWAECTHHA3070-83-25 10:45:00 Test Item Value Reference Range Interpretation Comments Eosinophils (test code = 0.4 See_Comment [A utomated message] The Eosinophils) system which ge nerated this result tra nsmitted reference range : <=4.0. The reference r monique was not used to int erpret this result as normal/abnormal . [facility] HospitalOvmvgqqYYWDUQWXSU4991-87-61 10:45:00 Test Item Value Reference Range Interpretation Comments Segs (test code = Segs) 64.4 45.0-75.0 [facility] CenterKjguuhiOTUWSAFNHL1112-01-75 10:45:00 Test Item Value Reference Range Interpretation Comments Lymphocytes (test code = Lymphocytes) 26.6 20.0-40.0 [facility] CenterannPARATHYROID DEGKNAB5428-55-46 10:45:00 Test Item Value Reference Range Interpretation Comments Ca Norm WB (test code = Ca Norm WB) 1.09 1.05-1.25 [facility] CenterannPARATHYROID VQNOXWC1750-44-06 10:45:00 Test Item Value Reference Range Interpretation Comments Ca Ion WB (test code = Ca Ion WB) 1.13 1.05-1.25 [facility] CenterannBACTERIAL - KAWZXPQH5881-86-01 10:45:00 Test Item Value Reference Range Interpretation Comments MRSA by PCR (test Negative (12/25/15 5:45 code = MRSA by PCR) AM) [facility] [employer]annCARDIAC HVMOYSY5607-76-60 10:45:00 Test Item Value Reference Range Interpretation Comments Total CK (test code = Total CK) 80 12-191 [facility] CenterannCARMobile BridgeAC VSPZYUG2834-49-53 10:45:00 Test Item Value Reference Range Interpretation Comments CK MB (test code = CK MB) 1.7 0.5-3.6 [facility] CenterannAgroSavfeAC ZPCELSN1534-04-05 10:45:00 Test Item Value Reference Range Interpretation Comments CK MB Index (test 2.1 See_Comment [Automate d message] The code = CK MB Index) system w [facility] generated this result transmit dimitry reference range : <=2.5. The reference range was not used to interpr et this result as himanshu l/abnormal. [facility] [employer]AC IVKCLNA9666-68-36 10:45:00 Test Item Value Reference Range Interpretation Comments Troponin-I (test code no gt See_Comment [Auto mated message] The = Troponin-I) system which g enerated this result transmit dimitry reference range : <=0.40. The reference r monique was not used to interpr et this result as himanshu l/abnormal. [facility] [employer] ESGWMRG0940-06-48 10:45:00 Test Item Value Reference Range Interpretation Comments Troponin-T (test code no gt See_Comment [Auto mated message] The = Troponin-T) system which g enerated this result transmit dimitry reference range : <=0.100. The reference r monique was not used to interpr et this result as himanshu l/abnormal. [facility]2016-09-13 10:45:00 Test Item Value Reference Range Interpretation Comments Phosphorus (test code = Phosphorus) 3.4 2.5-4.5 [facility]2016-09-13 10:45:00 Test Item Value Reference Range Interpretation Comments Total Protein (test code = Total 6.9 6.4-8.4 Protein) [facility]2016-09-13 10:45:00 Test Item Value Reference Range Interpretation Comments Alk Phos (test code = Alk Phos) 92 39-136 [facility]2016-09-13 10:45:00 Test Item Value Reference Range Interpretation Comments A/G Ratio (test code = A/G Ratio) 0.8 0.7-1.6 [place] 654266-09-13 10:45:00 Test Item Value Reference Range Interpretation Comments AST (test code = AST) 29 See_Comment [Auto mated message] The system which ge nerated this result transmit dimitry reference range : <=37. The reference range was not used to interpr et this result as himanshu l/abnormal. [facility]2016-09-13 10:45:00 Test Item Value Reference Range Interpretation Comments Globulin (test code = Globulin) 3.8 2.7-4.2 [facility]2016-09-13 10:45:00 Test Item Value Reference Range Interpretation Comments Albumin Lvl (test code = Albumin Lvl) 3.1 3.5-5.0 [facility]2016-09-13 10:45:00 Test Item Value Reference Range Interpretation Comments ALT (test code = ALT) 30 See_Comment [Auto mated message] The system which ge nerated this result transmit dimitry reference range : <=65. The reference range was not used to interpr et this result as himanshu l/abnormal. [facility] HospitalLxicezxWVUFHJQQJNOQ3574-01-38 10:45:00 Test Item Value Reference Range Interpretation Comments Chloride Lvl (test code = Chloride Lvl) 103 95-109 [facility] HospitalHsxawltFNJJZBQTMEAA8294-41-82 10:45:00 Test Item Value Reference Range Interpretation Comments Sodium Lvl (test code = Sodium Lvl) 137 135-145 [facility] HospitalNzozcoyTFXTVRCMEOWE7147-40-75 10:45:00 Test Item Value Reference Range Interpretation Comments Potassium Lvl (test code = Potassium 4.1 3.5-5.1 Lvl) [facility] HospitalVzysjdaMXAOMFCSNDWC3654-37-36 10:45:00 Test Item Value Reference Range Interpretation Comments eGFR (test code = eGFR) 105 [facility] HospitalBabhoboVZJURMCMLCIM3694-82-95 10:45:00 Test Item Value Reference Range Interpretation Comments CO2 (test code = CO2) 27 24-32 [facility] TylerHtivagzQKKMQZNWZH9285-60-61 10:45:00 Test Item Value Reference Range Interpretation Comments RBC (test code = RBC) 4.66 4.20-5.40 [facility] TylerSeigycrEOQUOXGUSB3067-09-20 10:45:00 Test Item Value Reference Range Interpretation Comments Hgb (test code = Hgb) 13.9 12.0-16.0 [facility] TylerWwtoojnZECSPMYEOX7328-39-73 10:45:00 Test Item Value Reference Range Interpretation Comments MCHC (test code = MCHC) 34.7 32.0-36.0 [facility] TylerDqtcesoXMTQPXNPWU4894-04-75 10:45:00 Test Item Value Reference Range Interpretation Comments WBC (test code = WBC) 9.8 3.7-10.4 [facility] TylerDmbrfejBZHFBLVQDY2434-41-00 10:45:00 Test Item Value Reference Range Interpretation Comments MCV (test code = MCV) 85.9 80.0-98.0 [facility]2016-09-13 10:45:00 Test Item Value Reference Range Interpretation Comments Bili Indirect (test 0.5 See_Comment [Automa dimitry message] The code = Bili Indirect) system which generated this result tra nsmitted reference range : <=1.0. The reference r monique was not used to int erpret this result as normal/abnormal . [facility] TylerKostagoAJDGGUITAI6140-74-92 10:45:00 Test Item Value Reference Range Interpretation Comments RDW (test code = RDW) 12.7 11.5-14.5 [facility] TylerFvvdjxgFQYVVYXQVD2107-37-53 10:45:00 Test Item Value Reference Range Interpretation Comments MCH (test code = MCH) 29.8 pg 27.0-31.0 [place] 044306-09-13 10:45:00 Test Item Value Reference Range Interpretation Comments Hct (test code = Hct) 40.0 36.0-48.0 [facility] TylerUxiaeduYMHPULTPGL4924-10-03 10:45:00 Test Item Value Reference Range Interpretation Comments Platelet (test code = Platelet) 166 133-450 [facility] TylerSyclaxoWSQTTQWSFL0454-96-38 10:45:00 Test Item Value Reference Range Interpretation Comments MPV (test code = MPV) 9.1 7.4-10.4 [facility] TylerZnpnjbuPDZXDKEPMZ8619-93-56 10:45:00 Test Item Value Reference Range Interpretation Comments Monocytes # (test code 0.8 See_Comment [Aut omated message] The = Monocytes #) system which generated this result tra nsmitted reference range : <=0.8. The reference r monique was not used to int erpret this result as normal/abnormal . [facility] TylerYqfsakzLAEUWGEUJI8013-21-81 10:45:00 Test Item Value Reference Range Interpretation Comments Segs-Bands # (test code = Segs-Bands #) 6.3 1.5-8.1 [facility] TylerEgpfuqhQJQIUCXPAF7880-56-02 10:45:00 Test Item Value Reference Range Interpretation Comments Lymphocytes # (test code = Lymphocytes 2.6 1.0-5.5 #) [facility] TylerNwixmkkHARUDPPBAL8205-18-76 10:45:00 Test Item Value Reference Range Interpretation Comments Basophils (test code = 0.5 See_Comment [Aut omated message] The Basophils) system which ge nerated this result tra nsmitted reference range : <=1.0. The reference r monique was not used to int erpret this result as normal/abnormal . [facility] TylerOjboqhtNEXOAEMCYG0348-70-02 10:45:00 Test Item Value Reference Range Interpretation Comments Monocytes (test code = Monocytes) 8.1 2.0-12.0 [facility] TylerVzmtehkAMLMZOXJZW7902-52-34 10:45:00 Test Item Value Reference Range Interpretation Comments Eosinophils (test code = 0.4 See_Comment [A utomated message] The Eosinophils) system which ge nerated this result tra nsmitted reference range : <=4.0. The reference r monique was not used to int erpret this result as normal/abnormal . [facility] TylerZmtdifqHXMLFASQPA1997-80-34 10:45:00 Test Item Value Reference Range Interpretation Comments Segs (test code = Segs) 64.4 45.0-75.0 [facility] CenterQnrgpjcRGPXUWUAQB9811-33-02 10:45:00 Test Item Value Reference Range Interpretation Comments Lymphocytes (test code = Lymphocytes) 26.6 20.0-40.0 [facility] CenterannPARATHYROID RJFYBLE7439-61-41 10:45:00 Test Item Value Reference Range Interpretation Comments Ca Norm WB (test code = Ca Norm WB) 1.09 1.05-1.25 [facility] CenterannPARATHYROID MRPWYNY8758-01-84 10:45:00 Test Item Value Reference Range Interpretation Comments Ca Ion WB (test code = Ca Ion WB) 1.13 1.05-1.25 [facility]annCHEM QZMLR8941-60-93 10:45:00 Test Item Value Reference Range Interpretation Comments Bili Total (test code = Bili Total) 0.6 0.2-1.3 [facility] JKRSO7717-31-24 10:45:00 Test Item Value Reference Range Interpretation Comments Bili Direct (test code 0.1 See_Comment [Aut omated message] The = Bili Direct) system which generated this result tra nsmitted reference range : <=0.3. The reference r monique was not used to int erpret this result as himanshu l/abnormal. [facility] CenterApplied BioCodeCHEM EOICT1230-83-82 10:45:00 Test Item Value Reference Range Interpretation Comments Magnesium Lvl (test code = Magnesium 2.0 1.8-2.4 Lvl) [facility] CenterannBACTERIAL - LFZLBSCZ5338-49-65 10:45:00 Test Item Value Reference Range Interpretation Comments MRSA by PCR (test Negative (12/25/15 5:45 code = MRSA by PCR) AM) [facility] CenterannCARDIAC GDNOANO5968-53-73 10:45:00 Test Item Value Reference Range Interpretation Comments Total CK (test code = Total CK) 80 12-191 [facility] CenterannCARDIAC GNCYPPA7635-76-04 10:45:00 Test Item Value Reference Range Interpretation Comments CK MB (test code = CK MB) 1.7 0.5-3.6 [facility] CenterannCARDIAC RVWRMFC5289-32-09 10:45:00 Test Item Value Reference Range Interpretation Comments CK MB Index (test 2.1 See_Comment [Automate d message] The code = CK MB Index) system w [facility] generated this result transmit dimitry reference range : <=2.5. The reference range was not used to interpr et this result as himanshu l/abnormal. [facility] [employer]2016-09-13 10:45:00 Test Item Value Reference Range Interpretation Comments Troponin-I (test code no gt See_Comment [Auto mated message] The = Troponin-I) system which g enerated this result transmit dimitry reference range : <=0.40. The reference r monique was not used to interpr et this result as himanshu l/abnormal. [facility] [employer]2016-09-13 10:45:00 Test Item Value Reference Range Interpretation Comments Troponin-T (test code no gt See_Comment [Auto mated message] The = Troponin-T) system which g enerated this result transmit dimitry reference range : <=0.100. The reference r monique was not used to interpr et this result as himanshu l/abnormal. [facility] [employer]2016-09-13 10:45:00 Test Item Value Reference Range Interpretation Comments Phosphorus (test code = Phosphorus) 3.4 2.5-4.5 [facility] [employer]2016-09-13 10:45:00 Test Item Value Reference Range Interpretation Comments Total Protein (test code = Total 6.9 6.4-8.4 Protein) [facility] [employer]2016-09-13 10:45:00 Test Item Value Reference Range Interpretation Comments Alk Phos (test code = Alk Phos) 92 39-136 [facility] [employer] FHNHM1474-54-47 10:45:00 Test Item Value Reference Range Interpretation Comments A/G Ratio (test code = A/G Ratio) 0.8 0.7-1.6 [facility] [employer]2016-09-13 10:45:00 Test Item Value Reference Range Interpretation Comments AST (test code = AST) 29 See_Comment [Auto mated message] The system which ge nerated this result transmit dimitry reference range : <=37. The reference range was not used to interpr et this result as himanshu l/abnormal. [employer]2016-09-13 10:45:00 Test Item Value Reference Range Interpretation Comments Globulin (test code = Globulin) 3.8 2.7-4.2 [facility]2016-09-13 10:45:00 Test Item Value Reference Range Interpretation Comments Albumin Lvl (test code = Albumin Lvl) 3.1 3.5-5.0 [facility]2016-09-13 10:45:00 Test Item Value Reference Range Interpretation Comments ALT (test code = ALT) 30 See_Comment [Auto mated message] The system which ge nerated this result transmit dimitry reference range : <=65. The reference range was not used to interpr et this result as himanshu l/abnormal. [facility]2016-09-13 10:45:00 Test Item Value Reference Range Interpretation Comments Bili Indirect (test 0.5 See_Comment [Automa dimitry message] The code = Bili Indirect) system which generated this result tra nsmitted reference range : <=1.0. The reference r monique was not used to int erpret this result as normal/abnormal . [facility]2016-09-13 10:45:00 Test Item Value Reference Range Interpretation Comments Bili Total (test code = Bili Total) 0.6 0.2-1.3 [facility]2016-09-13 10:45:00 Test Item Value Reference Range Interpretation Comments Bili Direct (test code 0.1 See_Comment [Aut omated message] The = Bili Direct) system which generated this result tra nsmitted reference range : <=0.3. The reference r monique was not used to int erpret this result as himanshu l/abnormal. [facility]2016-09-13 10:45:00 Test Item Value Reference Range Interpretation Comments Magnesium Lvl (test code = Magnesium 2.0 1.8-2.4 Lvl) [facility]KsmdwzeLIHCVEKYAZMP8070-79-75 10:45:00 Test Item Value Reference Range Interpretation Comments AGAP (test code = AGAP) 11.1 10.0-20.0 [facility] HospitalNmxmpmhRPVQKHNMVZVE0687-79-96 10:45:00 Test Item Value Reference Range Interpretation Comments Glucose Lvl (test code = Glucose Lvl) 140 70-99 [facility] HospitalWyprarsDNKLIVWLICUQ4250-86-10 10:45:00 Test Item Value Reference Range Interpretation Comments Calcium Lvl (test code = Calcium Lvl) 8.4 8.5-10.5 [facility] HospitalCrjbepwXJZTMUETBHFS4303-96-68 10:45:00 Test Item Value Reference Range Interpretation Comments BUN (test code = BUN) 12 11-01 [facility] HospitalPaiszqzMPLYGITKDOKQ0077-65-16 10:45:00 Test Item Value Reference Range Interpretation Comments Creatinine Lvl (test code = Creatinine 0.61 0.50-1.40 Lvl) [facility] HospitalEgfsyflTZPJUCSVFDDZ7974-06-66 10:45:00 Test Item Value Reference Range Interpretation Comments AGAP (test code = AGAP) 11.1 10.0-20.0 [facility] HospitalZctxmzdWUEOHNJUIFJZ0399-60-71 10:45:00 Test Item Value Reference Range Interpretation Comments Glucose Lvl (test code = Glucose Lvl) 140 70-99 [facility] HospitalVhaarmsSQQFIYHUTEEH4914-79-62 10:45:00 Test Item Value Reference Range Interpretation Comments Calcium Lvl (test code = Calcium Lvl) 8.4 8.5-10.5 [facility] HospitalMdzxipwMIEZNCGCRDHM1191-13-53 10:45:00 Test Item Value Reference Range Interpretation Comments BUN (test code = BUN) 12 11-01 [facility] HospitalJrhoujaSKXTWFJQQGOW0461-09-67 10:45:00 Test Item Value Reference Range Interpretation Comments Creatinine Lvl (test code = Creatinine 0.61 0.50-1.40 Lvl) [facility] HospitalUjepnmnFZQKKCBRUCTA8085-21-50 10:45:00 Test Item Value Reference Range Interpretation Comments Chloride Lvl (test code = Chloride Lvl) 103 95-109 [facility] HospitalIndztadCSGSSDJJENLW6062-50-64 10:45:00 Test Item Value Reference Range Interpretation Comments Sodium Lvl (test code = Sodium Lvl) 137 135-145 [facility] HospitalNkrutbsEPOKPBHBLFED5641-65-55 10:45:00 Test Item Value Reference Range Interpretation Comments Potassium Lvl (test code = Potassium 4.1 3.5-5.1 Lvl) [facility] 10:45:00 Test Item Value Reference Range Interpretation Comments eGFR (test code = eGFR) 105 [facility]yifLULOLUQHNIXO0671-25-99 10:45:00 Test Item Value Reference Range Interpretation Comments CO2 (test code = CO2) 27 24-32 [facility]YN6393-54-91 10:45:00 Test Item Value Reference Range Interpretation Comments RBC (test code = RBC) 4.66 4.20-5.40 [facility] TylerMalawilTGQARAZMYS9094-46-53 10:45:00 Test Item Value Reference Range Interpretation Comments Hgb (test code = Hgb) 13.9 12.0-16.0 [facility] TylerCzvuqykXSRPEKLJNY1247-18-16 10:45:00 Test Item Value Reference Range Interpretation Comments MCHC (test code = MCHC) 34.7 32.0-36.0 [facility] TylerJdmtqzeMHVDZOCNLN8849-37-82 10:45:00 Test Item Value Reference Range Interpretation Comments WBC (test code = WBC) 9.8 3.7-10.4 [facility] TylerRppewlfQCMXVWXRMK6164-18-22 10:45:00 Test Item Value Reference Range Interpretation Comments MCV (test code = MCV) 85.9 80.0-98.0 [facility] TylerUhlhhfwQXEPTTXKFP3152-03-79 10:45:00 Test Item Value Reference Range Interpretation Comments RDW (test code = RDW) 12.7 11.5-14.5 [facility] TylerTufhdewUQZSDJSJCU6990-21-67 10:45:00 Test Item Value Reference Range Interpretation Comments MCH (test code = MCH) 29.8 pg 27.0-31.0 [facility] TylerWphyjlpZHPFRVNROM9928-58-62 10:45:00 Test Item Value Reference Range Interpretation Comments Hct (test code = Hct) 40.0 36.0-48.0 [facility] TylerBxomyqeYZGYQAGPOB5102-84-74 10:45:00 Test Item Value Reference Range Interpretation Comments Platelet (test code = Platelet) 166 133-450 [facility] TylerHnhguznSPMDPQNCYA6089-99-16 10:45:00 Test Item Value Reference Range Interpretation Comments MPV (test code = MPV) 9.1 7.4-10.4 [facility] TylerCjuerddXZWYXCRAJN3400-04-63 10:45:00 Test Item Value Reference Range Interpretation Comments Monocytes # (test code 0.8 See_Comment [Aut omated message] The = Monocytes #) system which generated this result tra nsmitted reference range : <=0.8. The reference r monique was not used to int erpret this result as normal/abnormal . [facility] TylerQpngetaAOFOHFXRYO1480-27-47 10:45:00 Test Item Value Reference Range Interpretation Comments Segs-Bands # (test code = Segs-Bands #) 6.3 1.5-8.1 [facility] HospitalAnbrmeoXJLTHWQAZQ4866-71-17 10:45:00 Test Item Value Reference Range Interpretation Comments Lymphocytes # (test code = Lymphocytes 2.6 1.0-5.5 #) [facility] USJMNYS3799-00-17 06:38:00 Test Item Value Reference Range Interpretation Comments Antibody Scrn (test Negative (12/25/15 1:38 code = Antibody Scrn) AM) [facility] FPVMALE7483-49-74 06:38:00 Test Item Value Reference Range Interpretation Comments ABO/Rh (test code = ABO/Rh) O [facility] ZLWRE4700-22-83 06:38:00 Test Item Value Reference Range Interpretation Comments Creatinine Lvl (test code = Creatinine 0.69 0.50-1.40 Lvl) [facility] CKEAD9421-30-27 06:38:00 Test Item Value Reference Range Interpretation Comments BUN (test code = BUN) 14 7-22 [facility] ECASB9588-06-25 06:38:00 Test Item Value Reference Range Interpretation Comments Potassium Lvl (test code = Potassium 4.1 3.5-5.1 Lvl) [facility] SMXEA1216-17-91 06:38:00 Test Item Value Reference Range Interpretation Comments Sodium Lvl (test code = Sodium Lvl) 139 135-145 [facility] HYQBJ6760-13-30 06:38:00 Test Item Value Reference Range Interpretation Comments Chloride Lvl (test code = Chloride Lvl) 102 95-109 [facility] TRUTV8739-89-41 06:38:00 Test Item Value Reference Range Interpretation Comments eGFR (test code = eGFR) 101 [facility] YCVSD1448-11-14 06:38:00 Test Item Value Reference Range Interpretation Comments CO2 (test code = CO2) 27 24-32 [facility] TWMMA3164-77-08 06:38:00 Test Item Value Reference Range Interpretation Comments Calcium Lvl (test code = Calcium Lvl) 8.7 8.5-10.5 [facility] LTWFN2665-63-81 06:38:00 Test Item Value Reference Range Interpretation Comments Glucose Lvl (test code = Glucose Lvl) 167 70-99 [facility] MXIYZ1552-74-96 06:38:00 Test Item Value Reference Range Interpretation Comments AGAP (test code = AGAP) 14.1 10.0-20.0 [facility] TylerTaaslorXIRIDHPLTJ9690-19-38 06:38:00 Test Item Value Reference Range Interpretation Comments Estimated % Lysis Rapid 0.1 See_Comment [Au tomated message] The (test code = Estimated syste m which generated % Lysis Rapid) this result t ransmitted reference range : <=7.5. The reference r monique was not used to int erpret this result as normal/abnormal . [facility] TylerAraugnrQWRPKGBMBB2179-34-43 06:38:00 Test Item Value Reference Range Interpretation Comments Max Amplitude Rapid (test code = Max 62 mm 52-71 Amplitude Rapid) [facility] TylerFbezsxkDLKNGYSZVP4685-86-07 06:38:00 Test Item Value Reference Range Interpretation Comments G-value Rapid (test code = G-value 8.2 5.0-11.6 Rapid) [facility] TylerYlhdnwoNUFYVDQPPF9917-60-76 06:38:00 Test Item Value Reference Range Interpretation Comments ACT (TEG) Rapid (test code = ACT (TEG) 97 s 86-118 Rapid) [facility] TylerWuqzwmvAVDAERFXLF9667-14-84 06:38:00 Test Item Value Reference Range Interpretation Comments R-time Rapid (test code = R-time 0.5 min 0.4-0.7 Rapid) [facility] TylerBkptifwTMEHKAVFNP1652-63-65 06:38:00 Test Item Value Reference Range Interpretation Comments Split Point Rapid (test code = Split 0.4 min Point Rapid) [facility] TylerIymbudlATZNYFMZZH9941-22-56 06:38:00 Test Item Value Reference Range Interpretation Comments K-time Rapid (test code = K-time 1.5 min 0.6-2.3 Rapid) [facility] TylerIhlozqpQPWPHEUDOO9227-13-57 06:38:00 Test Item Value Reference Range Interpretation Comments Angle Rapid (test code = Angle 74 degrees 64-80 Rapid) [facility] TylerQckwtlgGVFKAWPSQY9986-12-28 06:38:00 Test Item Value Reference Range Interpretation Comments PTT (test code = PTT) 29.8 s 22.9-35.8 [facility] TylerXxzcsrlOJURGISGYI2426-39-20 06:38:00 Test Item Value Reference Range Interpretation Comments PT (test code = PT) 12.9 s 12.0-14.7 [facility] TylerVaqpoywQEQEHZEAOY3340-24-09 06:38:00 Test Item Value Reference Range Interpretation Comments INR (test code = INR) 0.94 0.85-1.17 [facility] TylerZngoqrlSBJJIFYDLL2169-78-71 06:38:00 Test Item Value Reference Range Interpretation Comments RDW (test code = RDW) 12.7 11.5-14.5 [facility] TylerHyosbvgAKAEYOARHQ4341-10-79 06:38:00 Test Item Value Reference Range Interpretation Comments MCHC (test code = MCHC) 34.3 32.0-36.0 [facility] TylerQfbznreVYYBKPKZSF3831-50-21 06:38:00 Test Item Value Reference Range Interpretation Comments MCH (test code = MCH) 29.4 pg 27.0-31.0 [facility] TylerWzvhtrePGYGEGEKXV5550-41-87 06:38:00 Test Item Value Reference Range Interpretation Comments Hct (test code = Hct) 41.6 36.0-48.0 [facility] TylerBnerfrdHNWVRAGZUY5337-99-66 06:38:00 Test Item Value Reference Range Interpretation Comments Hgb (test code = Hgb) 14.3 12.0-16.0 [facility] TylerTeahhxvUGKDEMRVJM5184-73-45 06:38:00 Test Item Value Reference Range Interpretation Comments MCV (test code = MCV) 85.7 80.0-98.0 [facility] TylerRxgxiejQBOJZSVXKU3149-63-87 06:38:00 Test Item Value Reference Range Interpretation Comments Platelet (test code = Platelet) 186 133-450 [facility] TylerMwijdixEXEHGIQTPC6216-79-23 06:38:00 Test Item Value Reference Range Interpretation Comments MPV (test code = MPV) 8.8 7.4-10.4 [facility] TylerLnicnhcQVLLPKHGFA3499-50-92 06:38:00 Test Item Value Reference Range Interpretation Comments RBC (test code = RBC) 4.86 4.20-5.40 [facility] TylerYrvfiyuRLPDCRWPDD6289-12-43 06:38:00 Test Item Value Reference Range Interpretation Comments WBC (test code = WBC) 11.3 3.7-10.4 [facility] TylerPxgcgprNFZVZJIGZN0958-27-14 06:38:00 Test Item Value Reference Range Interpretation Comments Lymphocytes # (test code = Lymphocytes 2.2 1.0-5.5 #) [facility] TylerMgdvxugRZMRTOULHR3757-15-86 06:38:00 Test Item Value Reference Range Interpretation Comments Basophils # (test code 0.1 See_Comment [Aut omated message] The = Basophils #) system which generated this result tra nsmitted reference range : <=0.2. The reference r monique was not used to int erpret this result as normal/abnormal . [facility] TylerFaebrjwYDENXULAGW5177-53-29 06:38:00 Test Item Value Reference Range Interpretation Comments Monocytes # (test code 0.8 See_Comment [Aut omated message] The = Monocytes #) system which generated this result tra nsmitted reference range : <=0.8. The reference r monique was not used to int erpret this result as normal/abnormal . [facility] TylerSoajjbaSDCLOBORDW9084-42-42 06:38:00 Test Item Value Reference Range Interpretation Comments Segs-Bands # (test code = Segs-Bands #) 8.2 1.5-8.1 [facility] TylerVrmaotlZETVHKVUBD9225-64-07 06:38:00 Test Item Value Reference Range Interpretation Comments Basophils (test code = 0.7 See_Comment [Aut omated message] The Basophils) system which ge nerated this result tra nsmitted reference range : <=1.0. The reference r monique was not used to int erpret this result as normal/abnormal . [facility] TylerAxmqpoqKLFRLXTFOX6440-59-80 06:38:00 Test Item Value Reference Range Interpretation Comments Eosinophils (test code = 0.3 See_Comment [A utomated message] The Eosinophils) system which ge nerated this result tra nsmitted reference range : <=4.0. The reference r monique was not used to int erpret this result as normal/abnormal . [facility] TylerSsvxesnCPHDBKYAXO2196-72-37 06:38:00 Test Item Value Reference Range Interpretation Comments Monocytes (test code = Monocytes) 6.9 2.0-12.0 [facility] TylerVbfasvaJEDAYOGXNA6162-45-41 06:38:00 Test Item Value Reference Range Interpretation Comments Lymphocytes (test code = Lymphocytes) 19.1 20.0-40.0 [facility] TylerNzajbboNPSPMALTTV5828-77-37 06:38:00 Test Item Value Reference Range Interpretation Comments Segs (test code = Segs) 73.0 45.0-75.0 [facility] YHNBJOM0810-40-64 06:38:00 Test Item Value Reference Range Interpretation Comments Antibody Scrn (test Negative (12/25/15 1:38 code = Antibody Scrn) AM) [facility] BANK RWKQLJN6271-89-20 06:38:00 Test Item Value Reference Range Interpretation Comments ABO/Rh (test code = ABO/Rh) O POS [facility]2016-09-13 06:38:00 Test Item Value Reference Range Interpretation Comments Creatinine Lvl (test code = Creatinine 0.69 0.50-1.40 Lvl) [facility]2016-09-13 06:38:00 Test Item Value Reference Range Interpretation Comments BUN (test code = BUN) 14 7-22 [facility]2016-09-13 06:38:00 Test Item Value Reference Range Interpretation Comments Potassium Lvl (test code = Potassium 4.1 3.5-5.1 Lvl) [facility]2016-09-13 06:38:00 Test Item Value Reference Range Interpretation Comments Sodium Lvl (test code = Sodium Lvl) 139 135-145 [facility]2016-09-13 06:38:00 Test Item Value Reference Range Interpretation Comments Chloride Lvl (test code = Chloride Lvl) 102 95-109 [facility]2016-09-13 06:38:00 Test Item Value Reference Range Interpretation Comments eGFR (test code = eGFR) 101 [facility]2016-09-13 06:38:00 Test Item Value Reference Range Interpretation Comments CO2 (test code = CO2) 27 24-32 [facility]2016-09-13 06:38:00 Test Item Value Reference Range Interpretation Comments Calcium Lvl (test code = Calcium Lvl) 8.7 8.5-10.5 [facility]2016-09-13 06:38:00 Test Item Value Reference Range Interpretation Comments Glucose Lvl (test code = Glucose Lvl) 167 70-99 [facility]2016-09-13 06:38:00 Test Item Value Reference Range Interpretation Comments AGAP (test code = AGAP) 14.1 10.0-20.0 [facility]yquhagWJOFVYFBIP2448-27-58 06:38:00 Test Item Value Reference Range Interpretation Comments Estimated % Lysis Rapid 0.1 See_Comment [Au tomated message] The (test code = Estimated syste m which generated % Lysis Rapid) this result t ransmitted reference range : <=7.5. The reference r monique was not used to int erpret this result as normal/abnormal . [facility] TylerAjovixhWLMZNHSXPI1716-69-43 06:38:00 Test Item Value Reference Range Interpretation Comments Max Amplitude Rapid (test code = Max 62 mm 52-71 Amplitude Rapid) [facility] TylerUmyltuuTBZGAQJLMF0260-45-80 06:38:00 Test Item Value Reference Range Interpretation Comments G-value Rapid (test code = G-value 8.2 5.0-11.6 Rapid) [facility] TylerWdvhvapGZSOLPPDXT5560-46-40 06:38:00 Test Item Value Reference Range Interpretation Comments ACT (TEG) Rapid (test code = ACT (TEG) 97 s 86-118 Rapid) [facility] TylerJytrsjrBAGBLLKNEK4444-12-65 06:38:00 Test Item Value Reference Range Interpretation Comments R-time Rapid (test code = R-time 0.5 min 0.4-0.7 Rapid) [facility] TylerInzcrljXBITBCIPAZ7567-44-38 06:38:00 Test Item Value Reference Range Interpretation Comments Split Point Rapid (test code = Split 0.4 min Point Rapid) [facility] TylerNvidqihXBTVJABDPK0646-93-07 06:38:00 Test Item Value Reference Range Interpretation Comments K-time Rapid (test code = K-time 1.5 min 0.6-2.3 Rapid) [facility] TylerXwgdicqZJRIDERXNV9441-35-43 06:38:00 Test Item Value Reference Range Interpretation Comments Angle Rapid (test code = Angle 74 degrees 64-80 Rapid) [facility] TylerTmbcdjgMOLOAZBRIB8276-04-75 06:38:00 Test Item Value Reference Range Interpretation Comments PTT (test code = PTT) 29.8 s 22.9-35.8 [place] [address]-09-13 06:38:00 Test Item Value Reference Range Interpretation Comments PT (test code = PT) 12.9 s 12.0-14.7 [place] [address]-09-13 06:38:00 Test Item Value Reference Range Interpretation Comments INR (test code = INR) 0.94 0.85-1.17 [place] [address]-09-13 06:38:00 Test Item Value Reference Range Interpretation Comments RDW (test code = RDW) 12.7 11.5-14.5 [facility] TylerMqmvmknLNQPEOKXTP9330-12-40 06:38:00 Test Item Value Reference Range Interpretation Comments MCHC (test code = MCHC) 34.3 32.0-36.0 [facility] TylerVmlgvcyUBQKXOGWQI5502-35-88 06:38:00 Test Item Value Reference Range Interpretation Comments MCH (test code = MCH) 29.4 pg 27.0-31.0 [facility] TylerVgxdfgjNRGNFHRFSH8263-37-86 06:38:00 Test Item Value Reference Range Interpretation Comments Hct (test code = Hct) 41.6 36.0-48.0 [facility] TylerHmvayefCCMFLBOQMN2202-17-32 06:38:00 Test Item Value Reference Range Interpretation Comments Hgb (test code = Hgb) 14.3 12.0-16.0 [facility] TylerCrlzsicRGIZYHTZPA6387-60-71 06:38:00 Test Item Value Reference Range Interpretation Comments MCV (test code = MCV) 85.7 80.0-98.0 [facility] TylerZztgxpoXBOOXUYTFZ6177-22-09 06:38:00 Test Item Value Reference Range Interpretation Comments Platelet (test code = Platelet) 186 133-450 [facility] TylerCerpcwoDQBCUZKJPT0877-56-45 06:38:00 Test Item Value Reference Range Interpretation Comments MPV (test code = MPV) 8.8 7.4-10.4 [facility] TylerNadeorfCFJQOYESXN5273-16-55 06:38:00 Test Item Value Reference Range Interpretation Comments RBC (test code = RBC) 4.86 4.20-5.40 [facility] TylerHmaucrhQRZUJFRDPT8261-88-35 06:38:00 Test Item Value Reference Range Interpretation Comments WBC (test code = WBC) 11.3 3.7-10.4 [facility] TylerJguoyzfLZHUIJJLAD2564-33-52 06:38:00 Test Item Value Reference Range Interpretation Comments Lymphocytes # (test code = Lymphocytes 2.2 1.0-5.5 #) [facility] TylerTrlreccERFWGDEXIE9033-18-68 06:38:00 Test Item Value Reference Range Interpretation Comments Basophils # (test code 0.1 See_Comment [Aut omated message] The = Basophils #) system which generated this result tra nsmitted reference range : <=0.2. The reference r monique was not used to int erpret this result as normal/abnormal . [facility] TylerQnjmjirKJNPJXAKFM4010-61-65 06:38:00 Test Item Value Reference Range Interpretation Comments Monocytes # (test code 0.8 See_Comment [Aut omated message] The = Monocytes #) system which generated this result tra nsmitted reference range : <=0.8. The reference r monique was not used to int erpret this result as normal/abnormal . [facility] TylerCjfvpxaSEFBYVBJXD6618-45-32 06:38:00 Test Item Value Reference Range Interpretation Comments Segs-Bands # (test code = Segs-Bands #) 8.2 1.5-8.1 [facility] TylerDebaremKQTOANFSHX5544-71-80 06:38:00 Test Item Value Reference Range Interpretation Comments Basophils (test code = 0.7 See_Comment [Aut omated message] The Basophils) system which ge nerated this result tra nsmitted reference range : <=1.0. The reference r monique was not used to int erpret this result as normal/abnormal . [facility] TylerVzczxpeJNAVSADZLL2705-84-88 06:38:00 Test Item Value Reference Range Interpretation Comments Eosinophils (test code = 0.3 See_Comment [A utomated message] The Eosinophils) system which ge nerated this result tra nsmitted reference range : <=4.0. The reference r monique was not used to int erpret this result as normal/abnormal . [facility] TylerTqgdvnxDOHIECLZOH7710-80-61 06:38:00 Test Item Value Reference Range Interpretation Comments Monocytes (test code = Monocytes) 6.9 2.0-12.0 [facility] TylerIkbkgcfKGWWKBQXBW4846-70-84 06:38:00 Test Item Value Reference Range Interpretation Comments Lymphocytes (test code = Lymphocytes) 19.1 20.0-40.0 [facility] TylerMdrdvpxBKNQYKAHFX8089-99-32 06:38:00 Test Item Value Reference Range Interpretation Comments Segs (test code = Segs) 73.0 45.0-75.0 [facility]
[2021-12-19] MEDS ORDERED: IBUPROFEN 400 MG TAB ONE (17:26)
[2021-12-19] MEDS ORDERED: IBUPROFEN 200 MG TAB PO ONE (17:26)
[2021-12-19 18:03] LABS: Absolute Lymphocytes (CBC) 1.3 K/uL (0.7-4.9); Hematocrit 49.8 % (36.0-45.0); Lymphocytes % 12.2 % (15.3-44.8); MCV 86.4 fL (80-100); MPV 8.3 fL (7.6-11.3); RBC Red Blood Cell Count 5.77 M/uL (3.86-4.86)
[2021-12-19 18:04] LABS: Protime INR 0.98
[2021-12-19 18:32] LABS: Albumin 4.1 g/dL (3.4-5.0); Bilirubin Total 0.5 mg/dL (0.2-1.0); Potassium 3.7 mmol/L (3.5-5.1); Protein, Total 8.2 g/dL (6.4-8.2)
[2021-12-19 18:46] LABS: Urine Blood Trace-intact (Negative); Urine Glucose 3+ (Negative); Urine Protein Trace (Negative)
[2021-12-19] MEDS ORDERED: NA CHLORIDE 0.9% 2,000 ML ONE (18:47)
[2021-12-19 19:36] LABS: Urine Bacteria 20-50 /HPF (<20); Urine RBC <5 /HPF (None Seen)
--- NOTE | 2021-12-19 19:44 | EDPHYS ---
Physician Documentation [facility] Name: Yennifer Trujillo Age: 56 yrs Sex: Female : 1965 Arrival Date: 12/19/2021 Time: 17:00 Bed 8 Private MD: ED Physician Anthony Brown HPI: 12/19 22:45 This 56 yrs old Female presents to ER via Ambulatory with complaints of kb Nausea, Sore Throat, Headache, Body Aches. 22:45 Severity of symptoms: At their worst the symptoms were moderate in the emergency kb department the symptoms are unchanged. The patient has not experienced similar symptoms in the past. The patient has not recently seen a physician. Pt reports headache, sore throat, bodyaches that started a few days ago. States she was diagnosed with UTI a week ago and is on antibiotics. Reports left flank pain, denies other urinary symptoms. 22:47 The patient or guardian reports flu symptoms, myalgias. Onset: The symptoms/episode kb began/occurred 4 day(s) ago. Severity of symptoms: At their worst the symptoms were moderate, in the emergency department the symptoms are unchanged. Modifying factors: The symptoms are alleviated by nothing, the symptoms are aggravated by nothing. Associated signs and symptoms: Pertinent positives: sore throat, Pertinent negatives: chest pain, diarrhea, ear ache, fever, nausea, rhinorrhea, vomiting. Historical: - Allergies: 17:12 No Known Allergies; ld1 - PMHx: 17:12 Anxiety; Bipolar disorder; Hypertension; ld1 - PSHx: 17:12 None; ld1 - Immunization history:: Adult Immunizations up to date, Client reports receiving the 2nd dose of the Covid vaccine. - Social history:: Smoking status: Patient denies any tobacco usage or history of. Patient/guardian denies using alcohol, street drugs. ROS: 22:47 Cardiovascular: Negative for chest pain, palpitations, and edema. kb 22:47 Constitutional: Positive for body aches, malaise. 22:47 ENT: Positive for sore throat. 22:47 Back: Positive for flank pain, on the left. 22:47 Neuro: Positive for headache. 22:47 All other systems are negative. Exam: 20:12 Constitutional: This is a well developed, well nourished patient who is awake, alert, kb and in no acute distress. Head/Face: Normocephalic, atraumatic. ENT: Moist Mucous membranes Cardiovascular: Regular rate and rhythm with a normal S1 and S2. No gallops, murmurs, or rubs. No pulse deficits. Respiratory: Respirations even and unlabored. No increased work of breathing. Talking in full sentences Abdomen/GI: Soft, non-tender. No distention Skin: Warm, dry with normal turgor. Normal color. MS/ Extremity: Pulses equal, no cyanosis. Neurovascular intact. Full, normal range of motion. Neuro: Awake and alert, GCS 15, oriented to person, place, time, and situation. Moves all extremities. Normal gait. Psych: Awake, alert, with orientation to person, place and time. Behavior, mood, and affect are within normal limits. 20:12 ECG was reviewed by the Attending Physician. Vital Signs: 17:10 BP 171 / 114; Pulse 134; Resp 20; Temp 102.0(O); Pulse Ox 98% on R/A; Weight 81.65 kg; ld1 Height 5 ft. 2 in. (157.48 cm); Pain 9/10; 18:45 BP 154 / 102; Pulse 110; Resp 18; Temp 100.3(O); Pulse Ox 95% on R/A; ph 20:08 BP 132 / 80; Pulse 92; Resp 17; Pulse Ox 96% on R/A; ll3 17:10 Body Mass Index 32.92 (81.65 kg, 157.48 cm) ld1 MDM: 17:14 Patient medically screened. kb 19:42 Data reviewed: vital signs, nurses notes. Data interpreted: Pulse oximetry: on room air kb is 95 %. Interpretation: normal. Counseling: I had a detailed discussion with the patient and/or guardian regarding: the historical points, exam findings, and any diagnostic results supporting the discharge/admit diagnosis, lab results, radiology results, the need for outpatient follow up, a family practitioner, to return to the emergency department if symptoms worsen or persist or if there are any questions or concerns that arise at home. ED course: Pt is currently on antibiotics for UTI. 22:48 ED course: Sepsis due to viral source. . kb 12/19 17:14 Order name: Flu; Complete Time: 18:11 kb 12/19 17:14 Order name: COVID-19 SARS RT PCR (Document "Date of Onset" if Symptomatic); Complete kb Time: 18:21 12/19 17:14 Order name: Strep; Complete Time: 18:11 kb 12/19 17:14 Order name: Blood Culture Adult (2) kb 12/19 17:14 Order name: CBC with Diff; Complete Time: 18:11 kb 12/19 17:14 Order name: CMP; Complete Time: 18:33 kb 12/19 17:14 Order name: Lactate; Complete Time: 18:33 kb 12/19 17:14 Order name: Protime (+inr); Complete Time: 18:06 kb 12/19 17:14 Order name: Urine Microscopic Only; Complete Time: 19:42 kb 12/19 18:10 Order name: Throat Culture EDCT 12/19 18:47 Order name: Urine Dipstick-Ancillary; Complete Time: 18:47 EDMS 12/19 19:39 Order name: Urine Culture EDCT 12/19 17:14 Order name: EKG - Nurse/Tech; Complete Time: 18:47 kb 12/19 17:14 Order name: IV Saline Lock - Large Bore; Complete Time: 18:30 kb 12/19 17:14 Order name: Labs collected and sent; Complete Time: 17:46 kb 12/19 17:14 Order name: O2 Per Protocol; Complete Time: 18:30 kb 12/19 17:14 Order name: O2 Sat Monitoring; Complete Time: 18:30 kb 12/19 17:14 Order name: Urine Dipstick-Ancillary (obtain specimen); Complete Time: 18:46 kb EC:12 Rate is 117 beats/min. Rhythm is regular. QRS [place] is Normal. NE interval is normal at kb 152 msec. QRS interval is normal at 86 msec. QT interval is normal at 449 msec. Administered Medications: 17:19 Drug: Ibuprofen 600 mg Route: PO; ld1 18:36 Not Given (Duplicate Order): NS 0.9% 1000 ml IV at 1000 ml once kb 18:46 Drug: NS 0.9% 1000 ml Route: IV; Rate: 1000 ml; Site: right antecubital; ph 20:07 Follow up: Response: No adverse reaction; IV Status: Completed infusion; IV Intake: ll3 1000ml Disposition Summary: 12/19/21 19:43 Discharge Ordered Location: Home kb Condition: Stable kb Diagnosis - UTI/ Urinary tract infection, site not specified kb - Dehydration kb - Coronavirus infection, unspecified kb Followup: kb - With: Emergency Department - When: As needed - Reason: Worsening of condition Followup: kb - With: Private Physician - When: 2 - 3 days - Reason: Recheck today's complaints, Continuance of care, Re-evaluation by your physician Discharge Instructions: - Discharge Summary Sheet kb - Urinary Tract Infection, Adult, [id number] kb - Viral Respiratory Infection, [id number] kb - COVID-19 kb Forms: - Medication Reconciliation Form kb - Thank You Letter kb - Antibiotic Education kb - Prescription Opioid Use kb Addendum: 12/23/2021 04:10 Co-signature as Attending Physician, Anthony Brown DO I was immediately available on-site m s3 in the Emergency Department for consultation in the care of the patient. Signatures: Dispatcher [employer] EDMS Loly Figueroa, GRAVITY PROSPECTING OPERATOR HELPER-C GRAVITY PROSPECTING OPERATOR HELPER-Delmi Hardin RN RN Anthony Perez DO DO ms3 Shannon Blanton RN RN ld1 Francy Kaplan RN ll3
--- NOTE | 2021-12-19 19:44 | ER ---
Nurse's Notes [facility] Name: Yennifer Trujillo Age: 56 yrs Sex: Female : 1965 Arrival Date: 12/19/2021 Time: 17:00 Bed 8 Private MD: Diagnosis: UTI/ Urinary tract infection, site not specified;Dehydration;Coronavirus infection, unspecified Presentation: 12/19 17:10 Chief complaint: Patient states: Headache, sore throat, body aches. Recent UTI - on ld1 antibiotics. Coronavirus screen: Client presents with at least one sign or symptom that may indicate coronavirus-19. Standard/surgical mask placed on the client. Ebola Screen: No symptoms or risks identified at this time. Initial Sepsis Screen: Does the patient meet any 2 criteria? No. Patient's initial sepsis screen is negative. Does the patient have a suspected source of infection? No. Patient's initial sepsis screen is negative. Risk Assessment: Do you want to hurt yourself or someone else? Patient reports no desire to harm self or others. Onset of symptoms was December 19, 2021. 17:10 Method Of Arrival: Ambulatory ld1 17:10 Acuity: LALITA 3 ld1 Triage Assessment: 17:12 General: Appears in no apparent distress. uncomfortable, Behavior is cooperative, ld1 anxious. Pain: Complains of pain in face, right leg and left leg Pain does not radiate. Pain currently is 9 out of 10 on a pain scale. Quality of pain is described as throbbing, Pain began 2-3 days ago. EENT: No signs and/or symptoms were reported regarding the EENT system. Neuro: Level of Consciousness is awake, alert, obeys commands, Oriented to person, place, time, situation. Cardiovascular: Capillary refill < 3 seconds Patient's skin is warm and dry. Rhythm is sinus tachycardia. Respiratory: Airway is compromised Respiratory effort is even, unlabored. GI: Abdomen is round non-distended, Reports nausea. : No signs and/or symptoms were reported regarding the genitourinary system. Derm: No signs and/or symptoms reported regarding the dermatologic system. Musculoskeletal: No signs and/or symptoms reported regarding the musculoskeletal system. Historical: - Allergies: 17:12 No Known Allergies; ld1 - PMHx: 17:12 Anxiety; Bipolar disorder; Hypertension; ld1 - PSHx: 17:12 None; ld1 - Immunization history:: Adult Immunizations up to date, Client reports receiving the 2nd dose of the Covid vaccine. - Social history:: Smoking status: Patient denies any tobacco usage or history of. Patient/guardian denies using alcohol, street drugs. Screenin:45 Abuse screen: Denies threats or abuse. Denies injuries from another. Nutritional ph screening: No deficits noted. Tuberculosis screening: No symptoms or risk factors identified. Fall Risk None identified. Assessment: 19:10 General: Appears in no apparent distress. comfortable, Behavior is calm, cooperative, ph appropriate for age, Reports chills for fever for 12-24 hours. Pain: Complains of pain in left leg and right leg and body aches. Neuro: Level of Consciousness is awake, alert, obeys commands, Oriented to person, place, time, situation, Reports headache. Cardiovascular: Capillary refill < 3 seconds in bilateral fingers Patient's skin is warm and dry. Respiratory: Airway is patent Respiratory effort is even, unlabored, Denies cough, shortness of breath. GI: Abdomen is non-distended, Reports nausea, Patient currently denies abdominal pain, diarrhea, vomiting. : No signs and/or symptoms were reported regarding the genitourinary system. EENT: Reports pain when swallowing. Derm: Skin is intact, Skin is pink, warm \\T\\ dry. Musculoskeletal: Circulation, motion, and sensation intact. Range of motion: intact in all extremities. Vital Signs: 17:10 BP 171 / 114; Pulse 134; Resp 20; Temp 102.0(O); Pulse Ox 98% on R/A; Weight 81.65 kg; ld1 Height 5 ft. 2 in. (157.48 cm); Pain 9/10; 18:45 BP 154 / 102; Pulse 110; Resp 18; Temp 100.3(O); Pulse Ox 95% on R/A; ph 20:08 BP 132 / 80; Pulse 92; Resp 17; Pulse Ox 96% on R/A; ll3 17:10 Body Mass Index 32.92 (81.65 kg, 157.48 cm) ld1 ED Course: 17:00 Patient arrived in ED. rg4 17:01 Loly Figueroa FNP-C [facility] kb 17:01 Anthony Brown DO is Attending Physician. kb 17:12 Triage completed. ld1 17:12 Arm band placed on right wrist. ld1 17:19 Strep Sent. ld1 17:19 COVID-19 SARS RT PCR (Document "Date of Onset" if Symptomatic) Sent. ld1 17:19 Flu Sent. ld1 17:45 Blood Culture Adult (2) Sent. zm 17:46 CBC with Diff Sent. zm 17:46 CMP Sent. zm 17:46 Lactate Sent. zm 17:46 Protime (+inr) Sent. zm 18:45 Delmi Parson, RN is Primary Nurse. ph 19:12 Patient has correct armband on for positive identification. Bed in low position. Call ph light in reach. Side rails up X 1. Client placed on continuous cardiac and pulse oximetry monitoring. NIBP monitoring applied. Door closed. Noise minimized. Warm blanket given. 19:12 No provider procedures requiring assistance completed. ph 20:08 IV discontinued, intact, bleeding controlled, No redness/swelling at site. Pressure ll3 dressing applied. Administered Medications: 17:19 Drug: Ibuprofen 600 mg Route: PO; ld1 18:36 Not Given (Duplicate Order): NS 0.9% 1000 ml IV at 1000 ml once kb 18:46 Drug: NS 0.9% 1000 ml Route: IV; Rate: 1000 ml; Site: right antecubital; ph 20:07 Follow up: Response: No adverse reaction; IV Status: Completed infusion; IV Intake: ll3 1000ml Medication: 19:12 VIS not applicable for this client. ph Intake: 20:07 IV: 1000ml; Total: 1000ml. ll3 Outcome: 19:43 Discharge ordered by . kb 20:08 Discharged to home ambulatory, with significant other. ll3 20:08 Condition: stable 20:08 Discharge instructions given to patient, significant other, Instructed on discharge instructions, follow up and referral plans. Demonstrated understanding of instructions, follow-up care. 20:08 Patient left the ED. ll3 Signatures: Loly Figueroa, SENIOR WEB ARCHITECT-C SENIOR WEB ARCHITECT-CkDelmi Shanks, RN RN ph Hollie Talbot rg4 Shannon Blanton RN RN ld1 Francy Kaplan RN RN ll3 Kinsey Quijano
[2021-12-19 22:07] VITALS: TEMP 100.3
[2021-12-19 22:09] VITALS: BP 132/80; O2SAT 96
--- NOTE | 2021-12-24 15:45 | EKG ---
Test Date: 2021-12-19 Test Time: 18:37:12 [employer]: MARJORIE MEASUREMENT RESULTS: Intervals: Rate: 117 NE: 152 QRSD: 86 QT: 322 QTc: 449 [place]: P: 41 NE: 152 QRS: 116 T: 26 INTERPRETIVE STATEMENTS: Sinus tachycardia Possible Left atrial enlargement Left posterior fascicular block Nonspecific T wave abnormality Abnormal ECG No previous ECG available for comparison Electronically Signed On 12-24-21 15:41:52 CDT by Lazaro Raphael
== END 2021-12-19 20:08 | disposition home or self-care (01) ==
LOC: ER 16:58
DX: U07.1 COVID-19 (principal); N39.0 Urinary tract infection, site not specified; E86.0 Dehydration; I10 Essential (primary) hypertension
CPT/HCPCS: 36415; 80053; 81003; 81015; 83605; 85025; 85610; 87040; 87070; 87081; 87086; 87088; 87804; 93005; 96360; 99284; J7030; U0003

== ENCOUNTER 2022-04-12 17:06 | Emergency (ER) | payer SELFPAY ==
--- OUTSIDE RECORDS SUMMARY | 2022-04-12 17:12 | XMS REPORT | Continuity of Care Document ---
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 TRIGLYCERIDES, HDL)2020-12-09 08:51:58 Test Item Value Reference Range Interpretation Comments CHOL (test code = 214 mg/dL 120-200 H 3325824533) HDL (test code = 31 mg/dL >50 L 4386504517) HDLC RATIO (test code = See_Comment H [Au tomated message] 5711265816) The system [employer] generated this result transmit dimitry reference range : <=4.5. The refe rence range was not u sed to interpret th is result as normal/abnormal . TRIG (test code = 325 mg/dL 30-170 H 4887867886) LDL CHOL (test code = 118 mg/dL See_Comment [Auto mated message] 30938-3) The system [employer] generated this result transmit dimitry reference range : <=160. The refe rence range was not u sed to interpret th is result as normal/abnormal . VLDL (test code = 65 mg/dL 5-60 H 5058883320) Lab Interpretation (test Abnormal code = 40061-8) [facility] [id number] 22:39:03 No aneurysm or high-grade stenosis is [...] stenosis is present in the intracranial orcervical vesselsCovenant Health Plainview CT STROKE ANGIOGRAM [id number] 22:39:03 No aneurysm or high-grade stenosis is [...] stenosis is present in the intracranial orcervical vesselsUnCHRISTUS Spohn Hospital BeevilleCT CERVICAL SPINE WO OAYDCLHY6992-27-31 22:32:[address] head No acute osseous [...] the left. Otherwise,significant degenerative changes are present. Rust, Radiant Results Inft User - 12/08/2020 5:34 [...] at C5-C6. Otherwise, no significant degenerative changes arepresent.[facility] HEAD WO GSGBECGJ3611-80-70 22:32:[address] head No acute osseous [...] at C5-C6. Otherwise, no significant degenerative changes arepresent.[facility]viewTROP[facility] [id number] 22:22:26 Test Item Value Reference Range Interpretation Comments TROPONIN I (test code = 0.004 ng/mL See_Comment [Au tomated 5661316243) message] The sy stem which generated this result transmitted reference range : <=0.034. The reference range was not used to interpret this result as normal/abnormal . GARCIA (test code = GARCIA) Lab Interpretation Normal (test code = 83584-6) [facility] 22:21:56 Test Item Value Reference Range Interpretation Comments LIPASE (test code = 1065750991) 2065 U/L 0-220 H Lab Interpretation (test code = Abnormal 67585-4) [facility] (ID NOW RAPID TESTING)2020-12-08 22:13:04 Test Item Value Reference Range Interpretation Comments SARS-CoV-2 Rapid ID NOW (test Not Detected Not Detected code = 75366-9) GARCIA (test code = GARCIA) Lab Interpretation (test code = Normal 46781-3) [facility] METABOLIC PANEL (61202)2020-12-08 22:10:22 Test Item Value Reference Range Interpretation Comments NA (test code = 2509136931) 136 mmol/L 135-145 K (test code = 0042097138) 3.9 mmol/L 3.5-5.0 CL (test code = 2376702396) 99 mmol/L 98-108 CO2 TOTAL (test code = 6701780892) 27 mmol/L 23-31 AGAP (test code = 2919370488) 2-16 BUN (test code = 6297693048) 9 mg/dL 7-23 GLUCOSE (test code = 7990510311) 261 mg/dL 70-110 H CREATININE (test code = 0.34 mg/dL 0.50-1.04 L 9708878154) TOTAL BILI (test code = 0.7 mg/dL 0.1-1.2 4404923245) CALCIUM (test code = 3257997598) 9.7 mg/dL 8.6-10.6 T PROTEIN (test code = 3356382320) 8.1 g/dL 6.3-8.2 ALBUMIN (test code = 8271936850) 4.7 g/dL 3.5-5.0 ALK PHOS (test code = 5299320818) 179 U/L 34-122 H ALTv (test code = 1742-6) 14 U/L 5-35 AST(SGOT) (test code = 2130271081) 31 U/L 13-40 eGFR (test code = 7960586860) mL/min/1.73m2 GARCIA (test code = GARCIA) Lab Interpretation (test code = Abnormal 15056-2) [facility] 22:10:17 Test Item Value Reference Range Interpretation Comments APPEARANCE (test code = Clear Clear 2020355596) COLOR (test code = Yellow Yellow 2728069569) PH (test code = 4.8-8.0 8914999603) SP GRAVITY (test code = 1.003-1.030 H 4118337210) GLU U QUAL (test code = 500 mg/dL Normal A 7568993710) BLOOD (test code = Negative Negative 6685462560) KETONES (test code = Negative Negative 5352085116) PROTEIN (test code = Negative Negative 2887-8) UROBILIN (test code = Normal Normal 8540926931) BILIRUBIN (test code = Negative Negative 2792663274) NITRITE (test code = Negative Negative 9662492468) LEUK BENITO (test code = Negative Negative 6456312261) RBC/HPF (test code = See_Comment [Autom ated message] 7302756368) The system [employer] generated this result transmit dimitry reference range : 0 - 3 HPF. The refe rence range was not u sed to interpret th is result as normal/abnormal . WBC/HPF (test code = See_Comment [Autom ated message] 4908700005) The system [employer] generated this result transmit dimitry reference range : 0 - 5 HPF. The refe rence range was not u sed to interpret th is result as normal/abnormal . BACTERIA (test code = Negative Negative 0613517102) MUCOUS (test code = Slight Negative LPF A 5732423005) SQ EPITH (test code = HPF 4988745119) Lab Interpretation (test Abnormal code = 41895-7) [facility] WITH [id number] 21:57:03 Test Item Value Reference Range Interpretation [...] (test code = 35.1 fL 39.0-49.9 L 72836-0) RDW-CV (test code = 11.6 % 12.0-15.5 L 788-0) PLT (test code = See_Comment [Automated 777-3) message] The sy stem which generated this result transmitted reference range : 166 - 358 10*3/ ?L. The reference r monique was not used to interpret this result as normal/abnormal . MPV (test code = 10.3 fL 9.5-12.9 51530-7) NRBC/100 WBC (test See_Comment [Automat ed code = 8903512850) message] The system which generated this result transmitted reference range : 0.0 - 10.0 /100 WBCs. The refer ence range was not u sed to interpret th is result as normal/abnormal . NRBC x10^3 (test code <0.01 See_Comment [Auto mated = 9282446607) message] The s ystem which generated this result transmitted reference range : 10*3/?L. The reference range was not used to interpret this result as normal/abnormal . GRAN MAT (NEUT) % 55.1 % (test code = 770-8) IMM GRAN % (test code 0.70 % = 2639338292) LYMPH % (test code = 35.5 % 736-9) MONO % (test code = 7.2 % 5905-5) EOS % (test code = 0.9 % 713-8) BASO % (test code = 0.6 % 706-2) GRAN MAT x10^3(ANC) 4.98 10*3/uL 1.88-7.09 (test code = 7031566508) IMM GRAN x10^3 (test 0.06 10*3/uL 0.00-0.06 code = 8420786631) LYMPH x10^3 (test code 3.21 10*3/uL 1.32-3.29 = 731-0) MONO x10^3 (test code 0.65 10*3/uL 0.33-0.92 = 742-7) EOS x10^3 (test code = 0.08 10*3/uL 0.03-0.39 711-2) BASO x10^3 (test code 0.05 10*3/uL 0.01-0.07 = 704-7) Lab Interpretation Abnormal (test code = 93066-0) [facility]2020-12-08 21:39:53 Test Item Value Reference Range Interpretation Comments POCT GLU (test code = 9444354907) 255 mg/dL 70-110 H Lab Interpretation (test code = Abnormal 13657-1) [facility]M BPOCJ8867-05-34 09:13:00 Test Item Value Reference Range Interpretation Comments Phosphorus (test code = Phosphorus) 2.5 2.5-4.[address] [facility], TxCHEM MNQPA7833-84-91 09:13:00 Test Item Value Reference Range Interpretation Comments Magnesium Lvl (test code = Magnesium 2.1 1.8-2.4 Lvl) [facility]kzuqsuLZKQMXBMNVWS3784-32-29 09:13:00 Test Item Value Reference Range Interpretation Comments AGAP (test code = AGAP) 8.8 10.0-20.0 [facility] CenterJztsxguJBJRAENESMJB3060-06-61 09:13:00 Test Item Value Reference Range Interpretation Comments eGFR (test code = eGFR) 104 [facility] CenterFwoxdzuSTQQWIVZZJPL0941-75-39 09:13:00 Test Item Value Reference Range Interpretation Comments Creatinine Lvl (test code = Creatinine 0.62 0.50-1.40 Lvl) [facility] CenterLkscuuyGRMPROWFAUXY0384-91-43 09:13:00 Test Item Value Reference Range Interpretation Comments BUN (test code = BUN) 13 7-22 [facility] CenterAvweggnEGTTCKUZIJBA3747-82-54 09:13:00 Test Item Value Reference Range Interpretation Comments Glucose Lvl (test code = Glucose Lvl) 130 70-99 [facility] CenterNoujdqqICLLNTHNGSZH6616-83-81 09:13:00 Test Item Value Reference Range Interpretation Comments Calcium Lvl (test code = Calcium Lvl) 8.6 8.5-10.5 [facility] CenterZircatcMXJKKIXRLXAO8507-46-37 09:13:00 Test Item Value Reference Range Interpretation Comments CO2 (test code = CO2) 28 24-32 [facility] CenterGfzifttRQDTWXGDLZZS3855-90-21 09:13:00 Test Item Value Reference Range Interpretation Comments Chloride Lvl (test code = Chloride Lvl) 107 95-109 [facility] CenterOulxhpeWAGMTEUOLIOZ8794-99-14 09:13:00 Test Item Value Reference Range Interpretation Comments Potassium Lvl (test code = Potassium 3.8 3.5-5.1 Lvl) [facility] CenterZnimhgoUPGPFKXVQPTT8655-89-22 09:13:00 Test Item Value Reference Range Interpretation Comments Sodium Lvl (test code = Sodium Lvl) 140 135-145 [facility]QylrnbnGQWPUPFYAH8398-32-70 09:13:00 Test Item Value Reference Range Interpretation Comments Monocytes # (test code 0.7 See_Comment [Aut omated message] The = Monocytes #) system which generated this result tra nsmitted reference range : <=0.8. The reference r monique was not used to int erpret this result as normal/abnormal . [facility]fieldOitugwkOIEQBUZUEE4692-63-06 09:13:00 Test Item Value Reference Range Interpretation Comments Eosinophils # (test code 0.1 See_Comment [A utomated message] The = Eosinophils #) system whic h generated this result tra nsmitted reference range : <=0.5. The reference r monique was not used to int erpret this result as normal/abnormal . [facility]fieldHqqidjiSSVCPIRSGU2000-38-71 09:13:00 Test Item Value Reference Range Interpretation Comments Basophils (test code = 0.5 See_Comment [Aut omated message] The Basophils) system which ge nerated this result tra nsmitted reference range : <=1.0. The reference r monique was not used to int erpret this result as normal/abnormal . [facility]fieldLdvssorJIAMZLEILW8356-39-06 09:13:00 Test Item Value Reference Range Interpretation Comments Segs-Bands # (test code = Segs-Bands #) 5.1 1.5-8.1 [facility]fieldHztkkweATKJQNTSBD2879-33-40 09:13:00 Test Item Value Reference Range Interpretation Comments Lymphocytes # (test code = Lymphocytes 2.6 1.0-5.5 #) [facility]fieldHzvluvgAFLNVCIBKZ3537-99-73 09:13:00 Test Item Value Reference Range Interpretation Comments Monocytes (test code = Monocytes) 7.9 2.0-12.0 [facility]fieldAcmblutUNPAXXCWVL0624-11-72 09:13:00 Test Item Value Reference Range Interpretation Comments Eosinophils (test code = 0.7 See_Comment [A utomated message] The Eosinophils) system which ge nerated this result tra nsmitted reference range : <=4.0. The reference r monique was not used to int erpret this result as normal/abnormal . [facility]fieldFdsiivcTBOPVATZKL9844-55-73 09:13:00 Test Item Value Reference Range Interpretation Comments Segs (test code = Segs) 60.0 45.0-75.0 [facility]fieldUenisycMWKBQFHHAP8325-30-21 09:13:00 Test Item Value Reference Range Interpretation Comments Lymphocytes (test code = Lymphocytes) 30.9 20.0-40.0 [facility]fieldDmdwuxrUROJVFJSWB6071-72-14 09:13:00 Test Item Value Reference Range Interpretation Comments MPV (test code = MPV) 9.2 7.4-10.4 [facility]fieldYwpfqeeSVBNTWWEFO7522-05-79 09:13:00 Test Item Value Reference Range Interpretation Comments MCHC (test code = MCHC) 34.3 32.0-36.0 [facility]fieldXwqabvcCDKVQRGXWT1675-95-31 09:13:00 Test Item Value Reference Range Interpretation Comments RDW (test code = RDW) 12.4 11.5-14.5 [facility]2016-09-14 09:13:00 Test Item Value Reference Range Interpretation Comments Phosphorus (test code = Phosphorus) 2.5 2.5-4.5 [facility]2016-09-14 09:13:00 Test Item Value Reference Range Interpretation Comments Magnesium Lvl (test code = Magnesium 2.1 1.8-2.4 Lvl) [facility] CenterNmbexlsTVMTFDNBLUUN1242-82-95 09:13:00 Test Item Value Reference Range Interpretation Comments AGAP (test code = AGAP) 8.8 10.0-20.0 [facility] CenterRutjbhoJSPGLSVAEETT7970-56-82 09:13:00 Test Item Value Reference Range Interpretation Comments eGFR (test code = eGFR) 104 [facility] CenterJzqxpvbUSPMMFCTAEZQ2863-29-06 09:13:00 Test Item Value Reference Range Interpretation Comments Creatinine Lvl (test code = Creatinine 0.62 0.50-1.40 Lvl) [facility] CenterJejvgrjTJHRQYXMOZKF8902-27-76 09:13:00 Test Item Value Reference Range Interpretation Comments BUN (test code = BUN) 13 7-22 [facility] CenterWxcesisCIXQHLZCCFGR9270-88-79 09:13:00 Test Item Value Reference Range Interpretation Comments Glucose Lvl (test code = Glucose Lvl) 130 70-99 [facility]fieldBuwnmlqJYUUZECFHT4204-76-72 09:13:00 Test Item Value Reference Range Interpretation Comments Platelet (test code = Platelet) 157 133-450 [facility] CenterHlwkpgbOMQBEFMLRTTG4605-48-11 09:13:00 Test Item Value Reference Range Interpretation Comments Calcium Lvl (test code = Calcium Lvl) 8.6 8.5-10.5 [facility] CenterNfhzbqvKMAOHYRRRWVB1384-52-85 09:13:00 Test Item Value Reference Range Interpretation Comments CO2 (test code = CO2) 28 24-32 [facility] CenterMyjrhwyUHKEAJBRDDUM1040-85-69 09:13:00 Test Item Value Reference Range Interpretation Comments Chloride Lvl (test code = Chloride Lvl) 107 95-109 [facility] CenterLftiimaTASTVYJJMTJK2283-24-53 09:13:00 Test Item Value Reference Range Interpretation Comments Potassium Lvl (test code = Potassium 3.8 3.5-5.1 Lvl) [facility] CenterGguumhjPHKZLGWRFQUD7172-90-72 09:13:00 Test Item Value Reference Range Interpretation Comments Sodium Lvl (test code = Sodium Lvl) 140 135-145 [facility]fieldSmsqjghWLVFCPDGAD9640-04-42 09:13:00 Test Item Value Reference Range Interpretation Comments Monocytes # (test code 0.7 See_Comment [Aut omated message] The = Monocytes #) system which generated this result tra nsmitted reference range : <=0.8. The reference r monique was not used to int erpret this result as normal/abnormal . [facility] MansfieldNiovepdVPLNQQJLPP7698-84-63 09:13:00 Test Item Value Reference Range Interpretation Comments Eosinophils # (test code 0.1 See_Comment [A utomated message] The = Eosinophils #) system whic h generated this result tra nsmitted reference range : <=0.5. The reference r monique was not used to int erpret this result as normal/abnormal . [facility] MansfieldZfbnttuOAGVANKBRI4386-60-43 09:13:00 Test Item Value Reference Range Interpretation Comments Basophils (test code = 0.5 See_Comment [Aut omated message] The Basophils) system which ge nerated this result tra nsmitted reference range : <=1.0. The reference r monique was not used to int erpret this result as normal/abnormal . [facility]fieldOnueuixGWQPGCDDYP6016-44-64 09:13:00 Test Item Value Reference Range Interpretation Comments Segs-Bands # (test code = Segs-Bands #) 5.1 1.5-8.1 [facility]fieldCxhnqrdDPPNHFDLXQ4894-97-48 09:13:00 Test Item Value Reference Range Interpretation Comments Lymphocytes # (test code = Lymphocytes 2.6 1.0-5.5 #) [facility]fieldAmlcpbpUYXBQDTUTO9719-23-14 09:13:00 Test Item Value Reference Range Interpretation Comments Hct (test code = Hct) 38.9 36.0-48.0 [facility]fieldHdshrwiUZQCNHHDUY7952-05-11 09:13:00 Test Item Value Reference Range Interpretation Comments Monocytes (test code = Monocytes) 7.9 2.0-12.0 [facility]fieldDnsmlysPQQDGZFYGU5680-57-00 09:13:00 Test Item Value Reference Range Interpretation Comments Eosinophils (test code = 0.7 See_Comment [A utomated message] The Eosinophils) system which ge nerated this result tra nsmitted reference range : <=4.0. The reference r monique was not used to int erpret this result as normal/abnormal . [facility]fieldXkoacpbIEXXSDGBEN2510-86-08 09:13:00 Test Item Value Reference Range Interpretation Comments Segs (test code = Segs) 60.0 45.0-75.0 [facility]fieldNkxyfpoYSRWWJKVSR7015-54-88 09:13:00 Test Item Value Reference Range Interpretation Comments Lymphocytes (test code = Lymphocytes) 30.9 20.0-40.0 [facility]fieldNofulliBORQJWFAJC7325-72-89 09:13:00 Test Item Value Reference Range Interpretation Comments MPV (test code = MPV) 9.2 7.4-10.4 [facility]fieldCijvbboVRUTMQTYFB9495-73-45 09:13:00 Test Item Value Reference Range Interpretation Comments MCHC (test code = MCHC) 34.3 32.0-36.0 [facility]fieldUgafhjfVORADYLFQY7227-83-07 09:13:00 Test Item Value Reference Range Interpretation Comments RDW (test code = RDW) 12.4 11.5-14.5 [facility]fieldFjfrkreFGKPPFWOBI1332-35-40 09:13:00 Test Item Value Reference Range Interpretation Comments Platelet (test code = Platelet) 157 133-450 [facility]fieldNuayhkhLOQVVCOOBV3429-54-18 09:13:00 Test Item Value Reference Range Interpretation Comments Hct (test code = Hct) 38.9 36.0-48.0 [facility]fieldMxodmesTLXIPWIFUI2051-43-83 09:13:00 Test Item Value Reference Range Interpretation Comments Hgb (test code = Hgb) 13.4 12.0-16.0 [facility]fieldAlmqmouANHQQKNQHB0194-28-34 09:13:00 Test Item Value Reference Range Interpretation Comments Hgb (test code = Hgb) 13.4 12.0-16.0 [facility]fieldPvqamqpMWPIVMAXBE8990-48-12 09:13:00 Test Item Value Reference Range Interpretation Comments MCH (test code = MCH) 29.7 pg 27.0-31.0 [facility]fieldEyohplcTUEJYUROOQ3253-63-56 09:13:00 Test Item Value Reference Range Interpretation Comments MCV (test code = MCV) 86.6 80.0-98.0 [facility]VeltjksGLIAPRVXPM4363-48-92 09:13:00 Test Item Value Reference Range Interpretation Comments RBC (test code = RBC) 4.49 4.20-5.40 [facility] HospitalHfoafvxUENQSSXREU2676-93-40 09:13:00 Test Item Value Reference Range Interpretation Comments WBC (test code = WBC) 8.4 3.7-10.4 [facility]fieldLikbetqEKLCRWPXFO6948-53-15 09:13:00 Test Item Value Reference Range Interpretation Comments MCH (test code = MCH) 29.7 pg 27.0-31.0 [facility]fieldSszhjqsNCXPIYKNMI3142-35-59 09:13:00 Test Item Value Reference Range Interpretation Comments MCV (test code = MCV) 86.6 80.0-98.0 [facility]fieldTzuywhzJLEUUVDATX3905-71-53 09:13:00 Test Item Value Reference Range Interpretation Comments RBC (test code = RBC) 4.49 4.20-5.40 [facility]fieldTlxkudoQCDLSCRKFQ2912-42-84 09:13:00 Test Item Value Reference Range Interpretation Comments WBC (test code = WBC) 8.4 3.7-10.4 [facility] BLCIMDZ5222-17-64 17:52:00 Test Item Value Reference Range Interpretation Comments Total CK (test code = Total CK) 79 12-191 [facility] DOXUKEU6045-55-48 17:52:00 Test Item Value Reference Range Interpretation Comments CK MB (test code = CK MB) 1.3 0.5-3.6 [facility] XTHSMKW3801-82-20 17:52:00 Test Item Value Reference Range Interpretation Comments Total CK (test code = Total CK) 79 12-191 [facility] TWQIXRD8231-01-36 17:52:00 Test Item Value Reference Range Interpretation Comments CK MB (test code = CK MB) 1.3 0.5-3.6 [facility] WNMNEPJ6819-90-84 17:52:00 Test Item Value Reference Range Interpretation Comments CK MB Index (test 1.6 See_Comment [Automate d message] The code = CK MB Index) system w [facility] generated this result transmit dimitry reference range : <=2.5. The reference range was not used to interpr et this result as himanshu l/abnormal. [facility] MFGFDUM1621-55-47 17:52:00 Test Item Value Reference Range Interpretation Comments Troponin-I (test code no gt See_Comment [Auto mated message] The = Troponin-I) system which g enerated this result transmit dimitry reference range : <=0.40. The reference r monique was not used to interpr et this result as himanshu l/abnormal. [facility] LAAZSMS5817-34-73 17:52:00 Test Item Value Reference Range Interpretation Comments CK MB Index (test 1.6 See_Comment [Automate d message] The code = CK MB Index) system w [facility] generated this result transmit dimitry reference range : <=2.5. The reference range was not used to interpr et this result as himanshu l/abnormal. [facility] GQLBOHT2552-49-88 17:52:00 Test Item Value Reference Range Interpretation Comments Troponin-I (test code no gt See_Comment [Auto mated message] The = Troponin-I) system which g enerated this result transmit dimitry reference range : <=0.40. The reference r monique was not used to interpr et this result as himanshu l/abnormal. [facility] HospitalKpyzqhxTUKXTHCYYQ0482-54-15 10:45:00 Test Item Value Reference Range Interpretation Comments Monocytes # (test code 0.8 See_Comment [Aut omated message] The = Monocytes #) system which generated this result tra nsmitted reference range : <=0.8. The reference r monique was not used to int erpret this result as normal/abnormal . [facility] HospitalPslrmvdCRZUGQTLJP7067-61-88 10:45:00 Test Item Value Reference Range Interpretation Comments Segs-Bands # (test code = Segs-Bands #) 6.3 1.5-8.1 [facility] HospitalXvrbtsvDJKKMTHMCU8685-90-58 10:45:00 Test Item Value Reference Range Interpretation Comments Lymphocytes # (test code = Lymphocytes 2.6 1.0-5.5 #) [facility]OivsnmhGMOXUIRQPH6808-51-64 10:45:00 Test Item Value Reference Range Interpretation Comments Basophils (test code = 0.5 See_Comment [Aut omated message] The Basophils) system which ge nerated this result tra nsmitted reference range : <=1.0. The reference r monique was not used to int erpret this result as normal/abnormal . [facility]fieldQmltopbZSIXVDTOHJ4886-85-89 10:45:00 Test Item Value Reference Range Interpretation Comments Monocytes (test code = Monocytes) 8.1 2.0-12.0 [facility]AwjrmkpMMKGMGVMIG9659-12-41 10:45:00 Test Item Value Reference Range Interpretation Comments Eosinophils (test code = 0.4 See_Comment [A utomated message] The Eosinophils) system which ge nerated this result tra nsmitted reference range : <=4.0. The reference r monique was not used to int erpret this result as normal/abnormal . [facility]fieldPqutxziJCFRMVTDQW0331-87-62 10:45:00 Test Item Value Reference Range Interpretation Comments Segs (test code = Segs) 64.4 45.0-75.0 [facility]fieldBfljidgKSRLEEJBAS8973-26-46 10:45:00 Test Item Value Reference Range Interpretation Comments Lymphocytes (test code = Lymphocytes) 26.6 20.0-40.0 [facility]2016-09-13 10:45:00 Test Item Value Reference Range Interpretation Comments Ca Norm WB (test code = Ca Norm WB) 1.09 1.05-1.25 [facility]2016-09-13 10:45:00 Test Item Value Reference Range Interpretation Comments Ca Ion WB (test code = Ca Ion WB) 1.13 1.05-1.25 [facility]JiluvxaBYDLOLGIQSLP6678-14-30 10:45:00 Test Item Value Reference Range Interpretation Comments Chloride Lvl (test code = Chloride Lvl) 103 95-109 [facility] CenterKqknsbdGZXRCPFNBTQN3827-89-86 10:45:00 Test Item Value Reference Range Interpretation Comments Sodium Lvl (test code = Sodium Lvl) 137 135-145 [facility] CenterAuglrdmNKZDBWIHEZEB6797-07-90 10:45:00 Test Item Value Reference Range Interpretation Comments Potassium Lvl (test code = Potassium 4.1 3.5-5.1 Lvl) [facility] CenterKxdpuhdOMFCICGIPXCH0827-21-33 10:45:00 Test Item Value Reference Range Interpretation Comments eGFR (test code = eGFR) 105 [facility] CenterDxnqtuzVRXHIFMGCGKE7825-83-25 10:45:00 Test Item Value Reference Range Interpretation Comments CO2 (test code = CO2) 27 24-32 [facility]fieldUvfsolmVMDERJLBLR3673-87-27 10:45:00 Test Item Value Reference Range Interpretation Comments RBC (test code = RBC) 4.66 4.20-5.40 [facility]fieldOevpaiqZAHQGMRNFG8885-25-39 10:45:00 Test Item Value Reference Range Interpretation Comments Hgb (test code = Hgb) 13.9 12.0-16.0 [facility]fieldYmmabqaORSFSXBVVM3392-35-02 10:45:00 Test Item Value Reference Range Interpretation Comments MCHC (test code = MCHC) 34.7 32.0-36.0 [facility]fieldLpuqmtlPUEEETSKEK0293-41-59 10:45:00 Test Item Value Reference Range Interpretation Comments WBC (test code = WBC) 9.8 3.7-10.4 [facility]fieldZmbgennZRJFAFTFHM5712-74-12 10:45:00 Test Item Value Reference Range Interpretation Comments MCV (test code = MCV) 85.9 80.0-98.0 [facility]fieldSmlxmpfCTXSMDAPWP9216-68-16 10:45:00 Test Item Value Reference Range Interpretation Comments RDW (test code = RDW) 12.7 11.5-14.5 [facility]fieldQapvzvxLCLRIAPCNG1852-46-68 10:45:00 Test Item Value Reference Range Interpretation Comments MCH (test code = MCH) 29.8 pg 27.0-31.0 [facility]fieldZlayowdVTUMDITZCV2296-86-76 10:45:00 Test Item Value Reference Range Interpretation Comments Hct (test code = Hct) 40.0 36.0-48.0 [facility]fieldHbhvaepRWUDLDDBXM2863-62-11 10:45:00 Test Item Value Reference Range Interpretation Comments Platelet (test code = Platelet) 166 133-450 [facility]fieldIwqkwmtLLQEPBHFLN6818-02-54 10:45:00 Test Item Value Reference Range Interpretation Comments MPV (test code = MPV) 9.1 7.4-10.4 [facility]fieldPizpvtgRVKDGJYHGU6631-10-04 10:45:00 Test Item Value Reference Range Interpretation Comments Monocytes # (test code 0.8 See_Comment [Aut omated message] The = Monocytes #) system which generated this result tra nsmitted reference range : <=0.8. The reference r monique was not used to int erpret this result as normal/abnormal . [facility]fieldSkmwczoWBHIGUNIAH1442-75-67 10:45:00 Test Item Value Reference Range Interpretation Comments Segs-Bands # (test code = Segs-Bands #) 6.3 1.5-8.1 [facility]FlzyziyYXDZHIPHXK6972-34-29 10:45:00 Test Item Value Reference Range Interpretation Comments Lymphocytes # (test code = Lymphocytes 2.6 1.0-5.5 #) [facility]fieldWpxtzqiBGJBWZNRZY6434-28-30 10:45:00 Test Item Value Reference Range Interpretation Comments Basophils (test code = 0.5 See_Comment [Aut omated message] The Basophils) system which ge nerated this result tra nsmitted reference range : <=1.0. The reference r monique was not used to int erpret this result as normal/abnormal . [facility]fieldYajevweDWNSSWNDSF7561-01-48 10:45:00 Test Item Value Reference Range Interpretation Comments Monocytes (test code = Monocytes) 8.1 2.0-12.0 [facility]fieldQyyfevyZWKSDFOFTT7443-05-75 10:45:00 Test Item Value Reference Range Interpretation Comments Eosinophils (test code = 0.4 See_Comment [A utomated message] The Eosinophils) system which ge nerated this result tra nsmitted reference range : <=4.0. The reference r monique was not used to int erpret this result as normal/abnormal . [facility]fieldJfsvknxRQJHPCVLJO9428-44-37 10:45:00 Test Item Value Reference Range Interpretation Comments Segs (test code = Segs) 64.4 45.0-75.0 [facility]fieldUrqthioGXGQWEIUCS6513-01-00 10:45:00 Test Item Value Reference Range Interpretation Comments Lymphocytes (test code = Lymphocytes) 26.6 20.0-40.0 [facility]RO[facility] JDRNJUP0089-81-67 10:45:00 Test Item Value Reference Range Interpretation Comments Ca Norm WB (test code = Ca Norm WB) 1.09 1.05-1.25 [facility] CenterRO[facility] NDCPECP7627-86-07 10:45:00 Test Item Value Reference Range Interpretation Comments Ca Ion WB (test code = Ca Ion WB) 1.13 1.05-1.[address] [facility] [place] TxBACTERIAL - [id number] 10:45:00 Test Item Value Reference Range Interpretation Comments MRSA by PCR (test Negative (12/25/15 5:45 code = MRSA by PCR) AM) [facility] [employer] FWEGJPM5441-98-10 10:45:00 Test Item Value Reference Range Interpretation Comments Total CK (test code = Total CK) 80 12-[address] [facility] [place] [employer] [id number] 10:45:00 Test Item Value Reference Range Interpretation Comments CK MB (test code = CK MB) 1.7 0.5-3.[address] [facility] [place] [employer] KYTJRHB1790-29-73 10:45:00 Test Item Value Reference Range Interpretation Comments CK MB Index (test 2.1 See_Comment [Automate d message] The code = CK MB Index) system w [facility] generated this result transmit dimitry reference range : <=2.5. The reference range was not used to interpr et this result as himanshu l/abnormal. [facility] HospitalVis[facility] Mobile [id number] 10:45:00 Test Item Value Reference Range Interpretation Comments Troponin-I (test code no gt See_Comment [Auto mated message] The = Troponin-I) system which g enerated this result transmit dimitry reference range : <=0.40. The reference r monique was not used to interpr et this result as himanshu l/abnormal. [facility] [employer] RJZGIFN9059-52-04 10:45:00 Test Item Value Reference Range Interpretation Comments Troponin-T (test code no gt See_Comment [Auto mated message] The = Troponin-T) system which g enerated this result transmit dimitry reference range : <=0.100. The reference r monique was not used to interpr et this result as himanshu l/abnormal. [facility] [employer]2016-09-13 10:45:00 Test Item Value Reference Range Interpretation Comments Phosphorus (test code = Phosphorus) 3.4 2.5-4.5 [facility] [employer]2016-09-13 10:45:00 Test Item Value Reference Range Interpretation Comments Total Protein (test code = Total 6.9 6.4-8.4 Protein) [facility] [employer]2016-09-13 10:45:00 Test Item Value Reference Range Interpretation Comments Alk Phos (test code = Alk Phos) 92 39-136 [facility] [employer]2016-09-13 10:45:00 Test Item Value Reference Range Interpretation Comments A/G Ratio (test code = A/G Ratio) 0.8 0.7-1.6 [facility]2016-09-13 10:45:00 Test Item Value Reference Range Interpretation Comments AST (test code = AST) 29 See_Comment [Auto mated message] The system which ge nerated this result transmit dimitry reference range : <=37. The reference range was not used to interpr et this result as himanshu l/abnormal. [facility]2016-09-13 10:45:00 Test Item Value Reference Range Interpretation Comments Globulin (test code = Globulin) 3.8 2.7-4.2 [facility]2016-09-13 10:45:00 Test Item Value Reference Range Interpretation Comments Albumin Lvl (test code = Albumin Lvl) 3.1 3.5-5.0 [facility]2016-09-13 10:45:00 Test Item Value Reference Range Interpretation Comments ALT (test code = ALT) 30 See_Comment [Auto mated message] The system which ge nerated this result transmit dimitry reference range : <=65. The reference range was not used to interpr et this result as himanshu l/abnormal. [facility]2016-09-13 10:45:00 Test Item Value Reference Range Interpretation Comments Bili Indirect (test 0.5 See_Comment [Automa dimitry message] The code = Bili Indirect) system which generated this result tra nsmitted reference range : <=1.0. The reference r monique was not used to int erpret this result as normal/abnormal . [facility]2016-09-13 10:45:00 Test Item Value Reference Range Interpretation Comments Bili Total (test code = Bili Total) 0.6 0.2-1.3 [place] [id number] 10:45:00 Test Item Value Reference Range Interpretation Comments Bili Direct (test code 0.1 See_Comment [Aut omated message] The = Bili Direct) system which generated this result tra nsmitted reference range : <=0.3. The reference r monique was not used to int erpret this result as himanshu l/abnormal. [facility]2016-09-13 10:45:00 Test Item Value Reference Range Interpretation Comments Magnesium Lvl (test code = Magnesium 2.0 1.8-2.4 Lvl) [facility] HospitalVzziotdTPREHQCYONEY5621-59-62 10:45:00 Test Item Value Reference Range Interpretation Comments AGAP (test code = AGAP) 11.1 10.0-20.0 [facility] HospitalSliscdrYIOEVNMSUBAC8264-67-90 10:45:00 Test Item Value Reference Range Interpretation Comments Glucose Lvl (test code = Glucose Lvl) 140 70-99 [facility]YgpxnmrUQFQBSIASRRP2318-68-76 10:45:00 Test Item Value Reference Range Interpretation Comments Calcium Lvl (test code = Calcium Lvl) 8.4 8.5-10.5 [facility] HospitalVnhppoiMZKPPLQLBDRZ2272-18-07 10:45:00 Test Item Value Reference Range Interpretation Comments BUN (test code = BUN) 12 7-22 [facility] AntonioLbtvvryKDJEHUUOTNLU5617-99-47 10:45:00 Test Item Value Reference Range Interpretation Comments Creatinine Lvl (test code = Creatinine 0.61 0.50-1.40 Lvl) [facility] HospitalannBACTERIAL - [id number] 10:45:00 Test Item Value Reference Range Interpretation Comments MRSA by PCR (test Negative (12/25/15 5:45 code = MRSA by PCR) AM) [facility] HospitalROXIMITYCARDIAC [id number] 10:45:00 Test Item Value Reference Range Interpretation Comments Total CK (test code = Total CK) 80 12-[address] [facility] [place], TxCARPrevotyAC [id number] 10:45:00 Test Item Value Reference Range Interpretation Comments CK MB (test code = CK MB) 1.7 0.5-3.6 [facility] [id number] 10:45:00 Test Item Value Reference Range Interpretation Comments CK MB Index (test 2.1 See_Comment [Automate d message] The code = CK MB Index) system w [facility] generated this result transmit dimitry reference range : <=2.5. The reference range was not used to interpr et this result as himanshu l/abnormal. [facility] HospitalROXIMITYCARPrevotyAC [id number] 10:45:00 Test Item Value Reference Range Interpretation Comments Troponin-I (test code no gt See_Comment [Auto mated message] The = Troponin-I) system which g enerated this result transmit dimitry reference range : <=0.40. The reference r monique was not used to interpr et this result as himanshu l/abnormal. [facility] [place], TxCARDIAC [id number] 10:45:00 Test Item Value Reference Range Interpretation Comments Troponin-T (test code no gt See_Comment [Auto mated message] The = Troponin-T) system which g enerated this result transmit dimitry reference range : <=0.100. The reference r monique was not used to interpr et this result as himanshu l/abnormal. [facility] HospitalSkillPod Media [id number] 10:45:00 Test Item Value Reference Range Interpretation Comments Phosphorus (test code = Phosphorus) 3.4 2.5-4.5 [facility] HospitalSk[facility] [id number] 10:45:00 Test Item Value Reference Range Interpretation Comments Total Protein (test code = Total 6.9 6.4-8.4 Protein) [facility] [id number] 10:45:00 Test Item Value Reference Range Interpretation Comments Alk Phos (test code = Alk Phos) 92 39-136 [facility] HospitalSk[facility] [id number] 10:45:00 Test Item Value Reference Range Interpretation Comments A/G Ratio (test code = A/G Ratio) 0.8 0.7-1.6 [facility] HospitalSk[facility] [id number] 10:45:00 Test Item Value Reference Range Interpretation Comments AST (test code = AST) 29 See_Comment [Auto mated message] The system which ge nerated this result transmit dimitry reference range : <=37. The reference range was not used to interpr et this result as himanshu l/abnormal. [facility] HospitalSk[facility] [id number] 10:45:00 Test Item Value Reference Range Interpretation Comments Globulin (test code = Globulin) 3.8 2.7-4.[address] [facility] [place] [id number] 10:45:00 Test Item Value Reference Range Interpretation Comments Albumin Lvl (test code = Albumin Lvl) 3.1 3.5-5.0 [facility] HospitalSk[facility] [id number] 10:45:00 Test Item Value Reference Range Interpretation Comments ALT (test code = ALT) 30 See_Comment [Auto mated message] The system which ge nerated this result transmit dimitry reference range : <=65. The reference range was not used to interpr et this result as himanshu l/abnormal. [facility]2016-09-13 10:45:00 Test Item Value Reference Range Interpretation Comments Bili Indirect (test 0.5 See_Comment [Automa dimitry message] The code = Bili Indirect) system which generated this result tra nsmitted reference range : <=1.0. The reference r monique was not used to int erpret this result as normal/abnormal . [facility]2016-09-13 10:45:00 Test Item Value Reference Range Interpretation Comments Bili Total (test code = Bili Total) 0.6 0.2-1.3 [facility]2016-09-13 10:45:00 Test Item Value Reference Range Interpretation Comments Bili Direct (test code 0.1 See_Comment [Aut omated message] The = Bili Direct) system which generated this result tra nsmitted reference range : <=0.3. The reference r monique was not used to int erpret this result as himanshu l/abnormal. [facility]2016-09-13 10:45:00 Test Item Value Reference Range Interpretation Comments Magnesium Lvl (test code = Magnesium 2.0 1.8-2.4 Lvl) [facility]JpkdjfrOUZVBHVXTTPK9962-30-35 10:45:00 Test Item Value Reference Range Interpretation Comments AGAP (test code = AGAP) 11.1 10.0-20.0 [facility] CenterMjxnrgcWOVBBPKYSRXY5692-96-41 10:45:00 Test Item Value Reference Range Interpretation Comments Glucose Lvl (test code = Glucose Lvl) 140 70-99 [facility] CenterPtjtxofDQATTOFYMNAA0412-56-94 10:45:00 Test Item Value Reference Range Interpretation Comments Calcium Lvl (test code = Calcium Lvl) 8.4 8.5-10.5 [facility] CenterDippvayGZLPXTEWUBOM2630-74-33 10:45:00 Test Item Value Reference Range Interpretation Comments BUN (test code = BUN) 12 7-22 [facility] CenterHinzkvkKHREBVIIHVYE7105-03-41 10:45:00 Test Item Value Reference Range Interpretation Comments Creatinine Lvl (test code = Creatinine 0.61 0.50-1.40 Lvl) [facility] CenterSqlraqfSDXJXSLHDPJG3777-16-79 10:45:00 Test Item Value Reference Range Interpretation Comments Chloride Lvl (test code = Chloride Lvl) 103 95-109 [facility] CenterBefxtefBIPTGFMGDQDV6342-18-07 10:45:00 Test Item Value Reference Range Interpretation Comments Sodium Lvl (test code = Sodium Lvl) 137 135-145 [facility] CenterMrwianhGMOKWEBBNWUC1799-64-35 10:45:00 Test Item Value Reference Range Interpretation Comments Potassium Lvl (test code = Potassium 4.1 3.5-5.1 Lvl) [facility] CenterJzabgmuPRAZVZHLNZGH4577-92-25 10:45:00 Test Item Value Reference Range Interpretation Comments eGFR (test code = eGFR) 105 [facility] CenterScogchfCQDNCICNFYPZ5104-19-51 10:45:00 Test Item Value Reference Range Interpretation Comments CO2 (test code = CO2) 27 24-32 [facility]HprzvseDPHXOLGQNN0171-54-64 10:45:00 Test Item Value Reference Range Interpretation Comments RBC (test code = RBC) 4.66 4.20-5.40 [facility]fieldLgaiufdYOMTIRYNPI9449-04-93 10:45:00 Test Item Value Reference Range Interpretation Comments Hgb (test code = Hgb) 13.9 12.0-16.0 [facility]fieldTgyjctdMOXVTBIWHL7569-74-06 10:45:00 Test Item Value Reference Range Interpretation Comments MCHC (test code = MCHC) 34.7 32.0-36.0 [facility]fieldTiolvngYGLAYBWMRY5688-51-33 10:45:00 Test Item Value Reference Range Interpretation Comments WBC (test code = WBC) 9.8 3.7-10.4 [facility]fieldRanjoprYTKQIIBGZC6850-54-88 10:45:00 Test Item Value Reference Range Interpretation Comments MCV (test code = MCV) 85.9 80.0-98.0 [facility]fieldVxtpfouQGOOMZWFIY9456-31-12 10:45:00 Test Item Value Reference Range Interpretation Comments RDW (test code = RDW) 12.7 11.5-14.5 [facility]fieldIfgkzneGZTXTNPFNX7365-39-26 10:45:00 Test Item Value Reference Range Interpretation Comments MCH (test code = MCH) 29.8 pg 27.0-31.0 [facility]fieldQgqrufdBKZSBYLGHG0713-51-58 10:45:00 Test Item Value Reference Range Interpretation Comments Hct (test code = Hct) 40.0 36.0-48.0 [facility]fieldNynudfhHZQZSRNBEO8014-49-39 10:45:00 Test Item Value Reference Range Interpretation Comments Platelet (test code = Platelet) 166 133-[address] [facility], TxBbcezqcWKETCVNYXG1225-34-18 10:45:00 Test Item Value Reference Range Interpretation Comments MPV (test code = MPV) 9.1 7.4-10.4 [facility] [id number] 06:38:00 Test Item Value Reference Range Interpretation Comments Antibody Scrn (test Negative (12/25/15 1:38 code = Antibody Scrn) AM) [facility] [employer] [facility] [id number] 06:38:00 Test Item Value Reference Range Interpretation Comments ABO/Rh (test code = ABO/Rh) O POS [facility] [id number] 06:38:00 Test Item Value Reference Range Interpretation Comments Creatinine Lvl (test code = Creatinine 0.69 0.50-1.40 Lvl) [facility] HospitalSk[facility] [id number] 06:38:00 Test Item Value Reference Range Interpretation Comments BUN (test code = BUN) 14 7-22 [facility]Sk[facility] [id number] 06:38:00 Test Item Value Reference Range Interpretation Comments Potassium Lvl (test code = Potassium 4.1 3.5-5.1 Lvl) [facility] [id number] 06:38:00 Test Item Value Reference Range Interpretation Comments Sodium Lvl (test code = Sodium Lvl) 139 135-145 [facility]Sk[facility] [id number] 06:38:00 Test Item Value Reference Range Interpretation Comments Chloride Lvl (test code = Chloride Lvl) 102 95-109 [facility] [id number] 06:38:00 Test Item Value Reference Range Interpretation Comments eGFR (test code = eGFR) 101 [facility]Sk[facility] [id number] 06:38:00 Test Item Value Reference Range Interpretation Comments CO2 (test code = CO2) 27 24-32 [facility] [id number] 06:38:00 Test Item Value Reference Range Interpretation Comments Calcium Lvl (test code = Calcium Lvl) 8.7 8.5-10.5 [facility]Sk[facility] [id number] 06:38:00 Test Item Value Reference Range Interpretation Comments Glucose Lvl (test code = Glucose Lvl) 167 70-99 [facility]Sk[facility] [id number] 06:38:00 Test Item Value Reference Range Interpretation Comments AGAP (test code = AGAP) 14.1 10.0-20.0 [facility]fieldQivktioYVUUJSPPZS2239-15-35 06:38:00 Test Item Value Reference Range Interpretation Comments Estimated % Lysis Rapid 0.1 See_Comment [Au tomated message] The (test code = Estimated syste m which generated % Lysis Rapid) this result t ransmitted reference range : <=7.5. The reference r monique was not used to int erpret this result as normal/abnormal . [facility]fieldUpnikwjMRZJYRZLXC0179-06-57 06:38:00 Test Item Value Reference Range Interpretation Comments Max Amplitude Rapid (test code = Max 62 mm 52-71 Amplitude Rapid) [facility]fieldJashetuWZZQURNAIP1682-03-18 06:38:00 Test Item Value Reference Range Interpretation Comments G-value Rapid (test code = G-value 8.2 5.0-11.6 Rapid) [facility]fieldMjjrkbyEPCBWBVAKX7033-39-40 06:38:00 Test Item Value Reference Range Interpretation Comments ACT (TEG) Rapid (test code = ACT (TEG) 97 s 86-118 Rapid) [facility]fieldIzmpykvXHHRIODRBD6722-40-30 06:38:00 Test Item Value Reference Range Interpretation Comments R-time Rapid (test code = R-time 0.5 min 0.4-0.7 Rapid) [facility]fieldErtnvonCSUPOOUDBO0669-38-27 06:38:00 Test Item Value Reference Range Interpretation Comments Split Point Rapid (test code = Split 0.4 min Point Rapid) [facility]fieldXskrqjbQYOKXVWZSZ7394-61-30 06:38:00 Test Item Value Reference Range Interpretation Comments K-time Rapid (test code = K-time 1.5 min 0.6-2.3 Rapid) [facility]fieldHnzbrgoNMOASYPPOE3583-39-86 06:38:00 Test Item Value Reference Range Interpretation Comments Angle Rapid (test code = Angle 74 degrees 64-80 Rapid) [facility]fieldJkihectNLHHWRCNJD7768-69-45 06:38:00 Test Item Value Reference Range Interpretation Comments PTT (test code = PTT) 29.8 s 22.9-35.8 [facility]fieldHizeypsPGMQMAPQZR3425-71-79 06:38:00 Test Item Value Reference Range Interpretation Comments PT (test code = PT) 12.9 s 12.0-14.7 [place] [id number] 06:38:00 Test Item Value Reference Range Interpretation Comments INR (test code = INR) 0.94 0.85-1.17 [facility]fieldNylroqgAVAYJRRHLM2683-95-83 06:38:00 Test Item Value Reference Range Interpretation Comments RDW (test code = RDW) 12.7 11.5-14.5 [facility]fieldNqetxrxCJMCBHJSAX5024-88-69 06:38:00 Test Item Value Reference Range Interpretation Comments MCHC (test code = MCHC) 34.3 32.0-36.0 [facility]fieldUapkvgeHEWOAGTPDA3177-75-02 06:38:00 Test Item Value Reference Range Interpretation Comments MCH (test code = MCH) 29.4 pg 27.0-31.0 [facility]fieldUmodqbeSMRMVFBUFK6963-49-50 06:38:00 Test Item Value Reference Range Interpretation Comments Hct (test code = Hct) 41.6 36.0-48.0 [facility] MansfieldKutukbwHKKDFQNOVJ0330-77-09 06:38:00 Test Item Value Reference Range Interpretation Comments Hgb (test code = Hgb) 14.3 12.0-16.0 [facility]fieldNbzwxxwHURCSYWRCY9807-46-39 06:38:00 Test Item Value Reference Range Interpretation Comments MCV (test code = MCV) 85.7 80.0-98.0 [facility] [place]TvhbxktMZNVUTTLJC2427-52-80 06:38:00 Test Item Value Reference Range Interpretation Comments Platelet (test code = Platelet) 186 133-450 [facility]OksgahdRCCVRMKQGS9816-94-71 06:38:00 Test Item Value Reference Range Interpretation Comments MPV (test code = MPV) 8.8 7.4-10.4 [facility]fieldYiqypflUEZQOFOFYN0226-33-64 06:38:00 Test Item Value Reference Range Interpretation Comments RBC (test code = RBC) 4.86 4.20-5.40 [facility] [place]CiipvwqMMHREXFWAU8834-42-81 06:38:00 Test Item Value Reference Range Interpretation Comments WBC (test code = WBC) 11.3 3.7-10.4 [facility]fieldIowicfjPSPRSYVBHO9964-73-21 06:38:00 Test Item Value Reference Range Interpretation Comments Lymphocytes # (test code = Lymphocytes 2.2 1.0-5.5 #) [facility]fieldLhzlhisTJAUIRNNOD4061-75-68 06:38:00 Test Item Value Reference Range Interpretation Comments Basophils # (test code 0.1 See_Comment [Aut omated message] The = Basophils #) system which generated this result tra nsmitted reference range : <=0.2. The reference r monique was not used to int erpret this result as normal/abnormal . [facility] [place]fieldEbeuhziVGSCVCDNVH7621-08-21 06:38:00 Test Item Value Reference Range Interpretation Comments Monocytes # (test code 0.8 See_Comment [Aut omated message] The = Monocytes #) system which generated this result tra nsmitted reference range : <=0.8. The reference r monique was not used to int erpret this result as normal/abnormal . [facility] [place]fieldUfpeelmKFMOHZAVPY3814-68-18 06:38:00 Test Item Value Reference Range Interpretation Comments Segs-Bands # (test code = Segs-Bands #) 8.2 1.5-8.1 [facility] [place]XbvpwajMTOOTTBMTJ5653-98-29 06:38:00 Test Item Value Reference Range Interpretation Comments Basophils (test code = 0.7 See_Comment [Aut omated message] The Basophils) system which ge nerated this result tra nsmitted reference range : <=1.0. The reference r monique was not used to int erpret this result as normal/abnormal . [facility] [place]fieldChwmnktQNHKTXIKYA8539-01-31 06:38:00 Test Item Value Reference Range Interpretation Comments Eosinophils (test code = 0.3 See_Comment [A utomated message] The Eosinophils) system which ge nerated this result tra nsmitted reference range : <=4.0. The reference r monique was not used to int erpret this result as normal/abnormal . [facility] [place]fieldBvhrojjVVASDHBSXS0713-52-08 06:38:00 Test Item Value Reference Range Interpretation Comments Monocytes (test code = Monocytes) 6.9 2.0-12.0 [facility]fieldLytthfuHITQJPATVJ1698-96-91 06:38:00 Test Item Value Reference Range Interpretation Comments Lymphocytes (test code = Lymphocytes) 19.1 20.0-40.0 [facility] [place]fieldPibkblgWPIMKVRXEO9807-16-12 06:38:00 Test Item Value Reference Range Interpretation Comments Segs (test code = Segs) 73.0 45.0-75.0 [facility] NJIEYMJ1679-55-55 06:38:00 Test Item Value Reference Range Interpretation Comments Antibody Scrn (test Negative (12/25/15 1:38 code = Antibody Scrn) AM) [facility] [id number] 06:38:00 Test Item Value Reference Range Interpretation Comments ABO/Rh (test code = ABO/Rh) O POS [facility]2016-09-13 06:38:00 Test Item Value Reference Range Interpretation Comments Creatinine Lvl (test code = Creatinine 0.69 0.50-1.40 Lvl) [facility]2016-09-13 06:38:00 Test Item Value Reference Range Interpretation Comments BUN (test code = BUN) 14 7-22 [facility]2016-09-13 06:38:00 Test Item Value Reference Range Interpretation Comments Potassium Lvl (test code = Potassium 4.1 3.5-5.1 Lvl) [facility]2016-09-13 06:38:00 Test Item Value Reference Range Interpretation Comments Sodium Lvl (test code = Sodium Lvl) 139 135-145 [facility]2016-09-13 06:38:00 Test Item Value Reference Range Interpretation Comments Chloride Lvl (test code = Chloride Lvl) 102 95-109 [facility]2016-09-13 06:38:00 Test Item Value Reference Range Interpretation Comments eGFR (test code = eGFR) 101 [facility]2016-09-13 06:38:00 Test Item Value Reference Range Interpretation Comments CO2 (test code = CO2) 27 24-32 [facility]2016-09-13 06:38:00 Test Item Value Reference Range Interpretation Comments Calcium Lvl (test code = Calcium Lvl) 8.7 8.5-10.5 [facility]2016-09-13 06:38:00 Test Item Value Reference Range Interpretation Comments Glucose Lvl (test code = Glucose Lvl) 167 70-99 [facility]2016-09-13 06:38:00 Test Item Value Reference Range Interpretation Comments AGAP (test code = AGAP) 14.1 10.0-20.0 [facility] 06:38:00 Test Item Value Reference Range Interpretation Comments Estimated % Lysis Rapid 0.1 See_Comment [Au tomated message] The (test code = Estimated syste m which generated % Lysis Rapid) this result t ransmitted reference range : <=7.5. The reference r monique was not used to int erpret this result as normal/abnormal . [facility] [place]fieldZnxcoxrMJEGXWSDHE7886-96-81 06:38:00 Test Item Value Reference Range Interpretation Comments Max Amplitude Rapid (test code = Max 62 mm 52-71 Amplitude Rapid) [facility]fieldUrsglepDWPNVYEIMV3040-36-67 06:38:00 Test Item Value Reference Range Interpretation Comments G-value Rapid (test code = G-value 8.2 5.0-11.6 Rapid) [facility]fieldMbkugjtVHLPQZDJYD4581-63-10 06:38:00 Test Item Value Reference Range Interpretation Comments ACT (TEG) Rapid (test code = ACT (TEG) 97 s 86-118 Rapid) [facility]fieldKafxeooCZPOLRFJKI4240-41-61 06:38:00 Test Item Value Reference Range Interpretation Comments R-time Rapid (test code = R-time 0.5 min 0.4-0.7 Rapid) [facility]fieldBpdupwiTCLVVVPSSC9730-51-26 06:38:00 Test Item Value Reference Range Interpretation Comments Split Point Rapid (test code = Split 0.4 min Point Rapid) [facility] [place]fieldJfljkjkALORWXURGG0595-10-76 06:38:00 Test Item Value Reference Range Interpretation Comments K-time Rapid (test code = K-time 1.5 min 0.6-2.3 Rapid) [facility]fieldPjyshqvSYOLAQXOTD4050-23-28 06:38:00 Test Item Value Reference Range Interpretation Comments Angle Rapid (test code = Angle 74 degrees 64-80 Rapid) [facility]fieldSdkrjyaXWPMUGSCFM0202-16-53 06:38:00 Test Item Value Reference Range Interpretation Comments PTT (test code = PTT) 29.8 s 22.9-35.8 [facility]fieldEwrmnwxHOBAZNTAVR1116-28-35 06:38:00 Test Item Value Reference Range Interpretation Comments PT (test code = PT) 12.9 s 12.0-14.7 [place] [id number] 06:38:00 Test Item Value Reference Range Interpretation Comments INR (test code = INR) 0.94 0.85-1.17 [facility]fieldZcsoepwFAYJJROSNS0103-58-36 06:38:00 Test Item Value Reference Range Interpretation Comments RDW (test code = RDW) 12.7 11.5-14.5 [facility]fieldJtnugltYHDHEUDNBK3255-66-21 06:38:00 Test Item Value Reference Range Interpretation Comments MCHC (test code = MCHC) 34.3 32.0-36.0 [facility]fieldPheveiiDKFOIIDAAO4964-56-80 06:38:00 Test Item Value Reference Range Interpretation Comments MCH (test code = MCH) 29.4 pg 27.0-31.0 [facility]fieldVeksiqpDZUQHCJKIV5077-23-55 06:38:00 Test Item Value Reference Range Interpretation Comments Hct (test code = Hct) 41.6 36.0-48.0 [facility]fieldXwwxlbtCVXVHDKQHE0628-17-49 06:38:00 Test Item Value Reference Range Interpretation Comments Hgb (test code = Hgb) 14.3 12.0-16.0 [facility]fieldUxezpdvFRPPZOEPBS9729-09-76 06:38:00 Test Item Value Reference Range Interpretation Comments MCV (test code = MCV) 85.7 80.0-98.0 [facility] [place]fieldQrjnhxkPFSDEWXWNT8997-82-24 06:38:00 Test Item Value Reference Range Interpretation Comments Platelet (test code = Platelet) 186 133-450 [facility] [place]fieldPjoamavRJRDVMZTVH8785-50-17 06:38:00 Test Item Value Reference Range Interpretation Comments MPV (test code = MPV) 8.8 7.4-10.4 [facility]fieldLjehmmzUZUXBYIVHH2051-03-56 06:38:00 Test Item Value Reference Range Interpretation Comments RBC (test code = RBC) 4.86 4.20-5.40 [facility] [place]fieldUcvyobrBWJRDOHVYP5379-57-54 06:38:00 Test Item Value Reference Range Interpretation Comments WBC (test code = WBC) 11.3 3.7-10.4 [facility] [place]fieldMavdvbfTYJWSTLKYK7734-52-67 06:38:00 Test Item Value Reference Range Interpretation Comments Lymphocytes # (test code = Lymphocytes 2.2 1.0-5.5 #) [facility]fieldRfyihvhUPTUYRXTUT6092-44-80 06:38:00 Test Item Value Reference Range Interpretation Comments Basophils # (test code 0.1 See_Comment [Aut omated message] The = Basophils #) system which generated this result tra nsmitted reference range : <=0.2. The reference r monique was not used to int erpret this result as normal/abnormal . [facility]fieldFgxeztsYAXIYUDBYX1265-15-01 06:38:00 Test Item Value Reference Range Interpretation Comments Monocytes # (test code 0.8 See_Comment [Aut omated message] The = Monocytes #) system which generated this result tra nsmitted reference range : <=0.8. The reference r monique was not used to int erpret this result as normal/abnormal . [facility] [place]fieldGnlylfkAXEKYASWBU0469-35-81 06:38:00 Test Item Value Reference Range Interpretation Comments Segs-Bands # (test code = Segs-Bands #) 8.2 1.5-8.1 [facility] [place]fieldScczeuzBZAPIGMOJI0643-92-99 06:38:00 Test Item Value Reference Range Interpretation Comments Basophils (test code = 0.7 See_Comment [Aut omated message] The Basophils) system which ge nerated this result tra nsmitted reference range : <=1.0. The reference r monique was not used to int erpret this result as normal/abnormal . [facility] [place]fieldQaftcaoVDLZTOHXTQ0576-66-30 06:38:00 Test Item Value Reference Range Interpretation Comments Eosinophils (test code = 0.3 See_Comment [A utomated message] The Eosinophils) system which ge nerated this result tra nsmitted reference range : <=4.0. The reference r monique was not used to int erpret this result as normal/abnormal . [facility] [place]fieldGxcwpefYZJLEKGKXH9421-22-06 06:38:00 Test Item Value Reference Range Interpretation Comments Monocytes (test code = Monocytes) 6.9 2.0-12.0 [facility] [place]fieldUieawnfZQNCJAFEGA3530-25-74 06:38:00 Test Item Value Reference Range Interpretation Comments Lymphocytes (test code = Lymphocytes) 19.1 20.0-40.0 [facility] [place]fieldAqnkmimMIBNJBTSOV6269-32-77 06:38:00 Test Item Value Reference Range Interpretation Comments Segs (test code = Segs) 73.0 45.0-75.[address] [facility] [place]
[2022-04-12] MEDS ORDERED: FLUORESCEIN SODIUM 1 MG/WRAP ONE (18:02)
[2022-04-12] MEDS ORDERED: TETRACAINE HCL 0.5% 4ML OPTH ONE (18:02)
--- NOTE | 2022-04-12 18:16 | ER ---
Nurse's Notes [facility] Name: Yennifer Trujillo Age: 56 yrs Sex: Female : 1965 Arrival Date: 04/12/2022 Time: 17:09 Bed 12 Private MD: Diagnosis: Subconjunctival hemorrhage - left eye Presentation: 04/12 17:37 Chief complaint: Patient states: Pt reports left eye irritation x30 minutes with FB kb3 sensation. Coronavirus screen: Vaccine status: Patient reports receiving the 2nd dose of the covid vaccine. Client denies travel out of the [place] in the last 14 days. Ebola Screen: Patient negative for fever greater than or equal to 101.5 degrees Fahrenheit, and additional compatible Ebola Virus Disease symptoms Patient denies exposure to infectious person. Patient denies travel to an Ebola-affected area in the 21 days before illness onset. No symptoms or risks identified at this time. Initial Sepsis Screen: Does the patient meet any 2 criteria? No. Patient's initial sepsis screen is negative. Does the patient have a suspected source of infection? No. Patient's initial sepsis screen is negative. Risk Assessment: Do you want to hurt yourself or someone else? Patient reports no desire to harm self or others. Onset of symptoms was April 12, 2022 at 17:00. 17:37 Method Of Arrival: Ambulatory kb3 17:37 Acuity: LALITA 4 kb3 Triage Assessment: 17:38 General: Appears in no apparent distress. Behavior is calm, cooperative. Pain: kb3 Complains of pain in left eye Pain does not radiate. Pain currently is 8 out of 10 on a pain scale. Historical: - Allergies: 17:38 No Known Allergies; kb3 - Home Meds: 17:38 None [Active]; kb3 - PMHx: 17:38 Anxiety; Bipolar disorder; Hypertension; kb3 - PSHx: 17:38 None; kb3 - Immunization history:: Adult Immunizations up to date, Client reports receiving the 2nd dose of the Covid vaccine, Last tetanus immunization: up to date. - Social history:: Smoking status: Patient denies any tobacco usage or history of. Screenin:39 [facility] ED Fall Risk Assessment (Adult) History of falling in the last 3 months, kb3 including since admission No falls in past 3 months (0 pts) Confusion or Disorientation No (0 pts) Intoxicated or Sedated No (0 pts) Impaired Gait No (0 pts) Mobility Assist Device Used No (0 pt) Altered Elimination No (0 pt) Score/Fall Risk Level 0 - 2 = Low Risk Oriented to surroundings, Maintained a safe environment, Educated pt \T\ family on fall prevention, incl call for assistance when getting out of bed, Assessed \T\ reinforced patient's understanding of fall precautions, Provided non-skid footwear, Hourly rounding (assess needs \T\ fall precautionary measures) done, Used ambulatory aids as needed (educated on \T\ assisted with). Abuse screen: Denies threats or abuse. Denies injuries from another. Nutritional screening: No deficits noted. Tuberculosis screening: No symptoms or risk factors identified. Assessment: 17:39 General: see triage note. EENT: Eyes outer aspect of left eye scleral hemorrhage noted. kb3 Vital Signs: 17:37 BP 146 / 92; Pulse 73; Resp 18; Temp 97.9; Pulse Ox 99% ; Weight 66.68 kg; Height 5 ft. kb3 2 in. (157.48 cm); Pain 8/10; 17:37 Body Mass Index 26.89 (66.68 kg, 157.48 cm) kb3 ED Course: 17:09 Patient arrived in ED. jj6 17:38 Triage completed. kb3 17:38 Arm band placed on right wrist. kb3 17:39 Patient has correct armband on for positive identification. kb3 17:39 No provider procedures requiring assistance completed. Patient did not have IV access kb3 during this emergency room visit. 17:44 Rebecca Junior, ANNE is Primary Nurse. kb3 17:45 Loly Figueroa FNP-C [facility]. kb 17:45 Flakito Snow MD is Attending Physician. kb Administered Medications: 18:08 Drug: Tetracaine Drops 0.5 % 1 drops {Note: administered by Loly ALEXANDER during eye kb3 exam.} Route: Ophthalmic; Site: left eye; Medication: 17:39 VIS not applicable for this client. kb3 Outcome: 18:16 Discharge ordered by . kb 18:34 Discharged to home ambulatory. kb3 18:34 Condition: stable 18:34 Discharge instructions given to patient, Instructed on discharge instructions, follow up and referral plans. medication usage, Demonstrated understanding of instructions, follow-up care, medications. 18:35 Patient left the ED. kb3 Signatures: Loly Figueroa FNP-C [employer]-Constanza Gee jj6 Rebecca Junior, RN RN kb3 Corrections: (The following items were deleted from the chart) 17:39 17:37 Chief complaint: Patient states: Pt reports right eye irritation x30 minutes with kb3 FB sensation kb3 18:07 18:07 Tetracaine Drops 0.5 % 1 drops Ophthalmic in left eye kb3 kb3
--- NOTE | 2022-04-12 18:16 | EDPHYS ---
Physician Documentation [facility] Name: Yennifer Trujillo Age: 56 yrs Sex: Female : 1965 Arrival Date: 04/12/2022 Time: 17:09 Bed 12 Private MD: ED Physician Flakito Snow HPI: 04/12 18:13 This 56 yrs old Female presents to ER via Ambulatory with complaints of Eye kb Problem. 18:13 The patient is experiencing foreign body sensation, to the left eye, caused by an kb unknown mechanism. Onset: The symptoms/episode began/occurred just prior to arrival. Duration: the symptoms are continuous. Aggravated by nothing. Alleviated by nothing. Associated signs and symptoms: Pertinent positives: None. Patient does not utilize any form of vision correction. Severity of symptoms: At their worst the symptoms were mild in the emergency department the symptoms are unchanged. The patient has not experienced similar symptoms in the past. The patient has not recently seen a physician. Pt reports she was fishing and felt like something went into her eye. A few minutes later her noticed redness in eye. Historical: - Allergies: 17:38 No Known Allergies; kb3 - Home Meds: 17:38 None [Active]; kb3 - PMHx: 17:38 Anxiety; Bipolar disorder; Hypertension; kb3 - PSHx: 17:38 None; kb3 - Immunization history:: Adult Immunizations up to date, Client reports receiving the 2nd dose of the Covid vaccine, Last tetanus immunization: up to date. - Social history:: Smoking status: Patient denies any tobacco usage or history of. ROS: 18:11 Constitutional: Negative for fever, chills, and weight loss. kb 18:11 Eyes: Positive for foreign body sensation, redness. 18:11 All other systems are negative. Exam: 18:11 Constitutional: This is a well developed, well nourished patient who is awake, alert, kb and in no acute distress. Head/Face: Normocephalic, atraumatic. ENT: Moist Mucous membranes Cardiovascular: Regular rate and rhythm with a normal S1 and S2. No gallops, murmurs, or rubs. No pulse deficits. Respiratory: Respirations even and unlabored. No increased work of breathing. Talking in full sentences Skin: Warm, dry with normal turgor. Normal color. MS/ Extremity: Pulses equal, no cyanosis. Neurovascular intact. Full, normal range of motion. Neuro: Awake and alert, GCS 15, oriented to person, place, time, and situation. Moves all extremities. Normal gait. Psych: Awake, alert, with orientation to person, place and time. Behavior, mood, and affect are within normal limits. 18:11 Eyes: Conjunctiva: subconjunctival hemorrhage(s), seen in the left eye, at 3 o'clock, Corneas: abrasion, is not appreciated, foreign body, is not appreciated, a fluorescein strip employed to appreciate the findings. Vital Signs: 17:37 BP 146 / 92; Pulse 73; Resp 18; Temp 97.9; Pulse Ox 99% ; Weight 66.68 kg; Height 5 ft. kb3 2 in. (157.48 cm); Pain 8/10; 17:37 Body Mass Index 26.89 (66.68 kg, 157.48 cm) kb3 MDM: 17:45 Patient medically screened. kb 18:13 Data reviewed: vital signs, nurses notes. Data interpreted: Pulse oximetry: on room air kb is 99 %. Interpretation: normal. Counseling: I had a detailed discussion with the patient and/or guardian regarding: the historical points, exam findings, and any diagnostic results supporting the discharge/admit diagnosis, the need for outpatient follow up, an opthalmologist, to return to the emergency department if symptoms worsen or persist or if there are any questions or concerns that arise at home. 04/12 17:46 Order name: Eye Tray; Complete Time: 17:58 kb 04/12 17:46 Order name: Fluoresene Opth strip; Complete Time: 17:58 kb Administered Medications: 18:08 Drug: Tetracaine Drops 0.5 % 1 drops {Note: administered by Loly ALEXANDER during eye kb3 exam.} Route: Ophthalmic; Site: left eye; Disposition: 18:58 Co-signature as Attending Physician, Flakito Snow MD. rn Disposition Summary: 04/12/22 18:16 Discharge Ordered Location: Home kb Condition: Stable kb Diagnosis - Subconjunctival hemorrhage - left eye kb Followup: kb - With: Emergency Department - When: As needed - Reason: Worsening of condition Followup: kb - With: Private Physician - When: 2 - 3 days - Reason: Recheck today's complaints, Continuance of care, Re-evaluation by your physician Discharge Instructions: - Discharge Summary Sheet kb - Subconjunctival Hemorrhage kb Forms: - Medication Reconciliation Form kb - Thank You Letter kb - Antibiotic Education kb - Prescription Opioid Use kb Signatures: Loly Figueroa FNP-C FNP-Flakito Mcgregor MD MD rn Bradberry, Kelly, RN RN kb3
[2022-04-12 18:40] VITALS: BP 146/92; TEMP 97.9; O2SAT 99
== END 2022-04-12 18:35 | disposition home or self-care (01) ==
LOC: ER 17:06
DX: H11.32 Conjunctival hemorrhage, left eye (principal)
CPT/HCPCS: 99283